=== PATIENT | female | born 1930 | race Caucasian/White ===

== ENCOUNTER 2016-08-20 12:07 | Emergency (ER) | payer OTHER ==
[~2016-08-20] VITALS: Ht 162.6 cm; Wt 63.0 kg
[~2016-08-20 12:07] MED LIST: ASPEC81 PO; BIOT1CAP4 PO; CARB25TA12 PO; CARDIO PLUS PO; CHOLDRO4 PO; CODCAP4 PO; GABA1CAP PO; GARL705C PO; MAGN400T5 PO; NSNN50; SELE5CAP2 PO; SERT50TA PO; VALA1TAB31 PO; [UNRECOGNIZED DRUG - CODE] PO
[2016-08-20 12:10] VITALS: Ht 162.6 cm; Wt 63.0 kg
[2016-08-20 12:52] LABS: BASO % 0.8 %; BASO ABS # 0.04 K/uL (0-0.2); COMPLETE YES; EOS % 1.8 %; HEMATOCRIT 45.4 % (37-47); IG% 0.4 %; LYMPH ABS # 1.01 K/uL (1.2-3.4); MEAN CELL VOLUME 94.6 fL (80-100); MEAN CORPUSCULAR HEMOGLOBIN 31.5 pg (25-34); MEAN CORPUSCULAR HGB CONC 33.3 g/dl (32-36); MEAN PLATELET VOLUME 9.5 fL (7.4-10.4); MONO % 11.7 %; NEUT % 65.3 %; PLATELET COUNT 332 K/uL (130-400); WHITE BLOOD COUNT 5.05 K/uL (4.8-10.8)
[2016-08-20] MEDS ORDERED: POTA-232 PO (13:07)
[2016-08-20 13:10] LABS: ALT/SGPT 10 U/L (12-78); AST/SGOT 20 U/L (15-37); BLOOD UREA NITROGEN 14 mg/dl (7-18); BUN/CREATININE RATIO 19.3 (10-20); CALCIUM 9.1 mg/dl (8.5-10.1); CARBON DIOXIDE 32 mmol/L (21-32); CHLORIDE 106 mmol/L (98-107); CREATININE 0.71 mg/dl (0.60-1.20); GLUCOSE 100 mg/dl (70-99); POTASSIUM 3.9 mmol/L (3.5-5.1); SODIUM 144 mmol/L (136-145)
[2016-08-20 13:21] LABS: ALB/GLOB RATIO 1.1 (0.9-2); ALKALINE PHOSPHATASE 79 U/L (45-117)
--- NOTE | 2016-08-20 14:03 | EMERGENCY ROOM VISIT NOTE ---
History Report prepared by Brook: Nicole Velasquez Under the Supervision of: Dr. Jakob Lomeli M.D. First contact with patient: 12:13 Chief Complaint: OTHER COMPLAINT Stated Complaint: BURNING UP INSIDE ALL NIGHT History of Present Illness The patient is an 86 year old female who presents to the Emergency Room with complaints of intermittent hot flashes for the past 1.5 weeks. She has not seen her PCP for her symptoms. Last night, she felt like she was "burning up inside" . She is becoming flushed and turning red all over her body. The symptoms last for several hours at a time and are relieved by ice. She currently has no symptoms. She denies any fever, urinary symptoms, changes in bowel movement, cough, or new rash. 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 She denies any other changes to her medications recently. She was taken off her thyroid pill 1 year ago. She has been eating and drinking normally. She notes that the color changes on her skin are old. She also has bumps on her arm which have been present for 2 years. She has a history of skin cancer and hernia surgery. She also reports worsening numbness all over her body for the past year. Source of History: patient, family Onset: 1.5 weeks ago Position: other (global) Quality: other (hot flashes) Timing: intermittent Modifying Factors (Relieving): ice Associated Symptoms: + numbness, No fevers, No cough, No urinary symptoms, No rash Note: Pt denies changes in bowel movement. Review of Systems All systems have been listed, reviewed, and are negative other than those previously mentioned. Please see Additional Medical History Sheet. 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), lumbar (3) Dyslipidemia (4) GERD (gastroesophageal reflux disease) (5) Parkinson's disease Surgical Problems: (1) H/O elbow surgery (2) History of cataract surgery (3) S/P hernia repair (4) S/P knee replacement (5) S/P tonsillectomy and adenoidectomy Family History FH: cancer FH: heart disease FH: hypertension FH: lung disease Social History Smoking Status: Never Smoker Alcohol Use: none Drug Use: none Marital Status: Housing Status: lives with family Occupation Status: retired Current/Historical Medications Scheduled Aspirin (Aspirin EC Low Dose), 81 MG PO DAILY Biotin (Biotin), 2,500 MCG PO DAILY Carbidopa/Levodopa (Sinemet 25MG/100MG), 2 TABS PO TID Cholecalciferol (Vitamin D3), 1 TAB PO DAILY Gabapentin (Neurontin), 100 MG PO TID Magnesium Oxide (Mag-Ox), 400 MG PO TID Potassium Chloride (K-Tab), 8 MEQ PO DAILY Selegiline Hcl (Eldepryl), 5 MG PO AM AND LUNCH Sertraline (Zoloft), 50 MG PO HS Allergies Uncoded Allergies: NARCOTICS (Adverse Reaction, Unknown, DIZZY, , 06/25/15) Physical Exam Vital Signs Date Time Temp Pulse Resp B/P (MAP) Pulse Ox O2 Delivery O2 Flow Rate FiO2 08/20/16 15:31 36.7 68 16 154/79 98 08/20/16 14:53 68 16 154/79 98 08/20/16 13:57 68 16 128/80 97 Room Air 08/20/16 12:10 36.7 77 16 117/77 97 Room Air Physical Exam GENERAL: Patient awake, alert, oriented x 3. Patient follows commands. Patient does not appear toxic. Patient is well-nourished. SKIN: Ulcer on the left anterior tib fib. Slightly raised nonblanching rash primarily on the arms. HEENT: Normal head, pupils equal, reactive to light and accommodation. Ears normal. Oral cavity and posterior pharynx appear normal. Mucous membranes slightly dry. Neck: Without adenopathy, no neck vein distention. LUNGS: Clear to auscultation. No wheezes, no rales, no rhonchi. HEART: No murmurs. No gallops. No rubs ABDOMEN: No masses, no rebound, no hepatomegaly or splenomegaly. Well healed mid abdominal scar. EXTREMITIES: No signs of trauma. No pedal or pretibial edema. No calf or thigh tenderness. Stasis changes to both lower legs. NEUROLOGIC: Cranial nerves II-XII within normal limits. No gross motor sensory function deficits. Medical Decision & Procedures Laboratory Results 08/20/16 12:40 Red Blood Count 4.80, Mean Corpuscular Volume 94.6, Mean Corpuscular Hemoglobin 31.5, Mean Corpuscular Hemoglobin Concent 33.3, Mean Platelet Volume 9.5, Neutrophils (%) (Auto) 65.3, Lymphocytes (%) (Auto) 20.0, Monocytes (%) (Auto) 11.7, Eosinophils (%) (Auto) 1.8, Basophils (%) (Auto) 0.8, Neutrophils # (Auto ) 3.30, Lymphocytes # (Auto) 1.01, Monocytes # (Auto) 0.59, Eosinophils # (Auto ) 0.09, Basophils # (Auto) 0.04 08/20/16 12:40 Test 08/20/16 12:40 White Blood Count 5.05 K/uL (4.8-10.8) Red Blood Count 4.80 M/uL (4.2-5.4) Hemoglobin 15.1 g/dL (12.0-16.0) Hematocrit 45.4 % (37-47) Mean Corpuscular Volume 94.6 fL (80-100) Mean Corpuscular Hemoglobin 31.5 pg (25-34) Mean Corpuscular Hemoglobin Concent 33.3 g/dl (32-36) Platelet Count 332 K/uL (130-400) Mean Platelet Volume 9.5 fL (7.4-10.4) Neutrophils (%) (Auto) 65.3 % Lymphocytes (%) (Auto) 20.0 % Monocytes (%) (Auto) 11.7 % Eosinophils (%) (Auto) 1.8 % Basophils (%) (Auto) 0.8 % Neutrophils # (Auto) 3.30 K/uL (1.4-6.5) Lymphocytes # (Auto) 1.01 K/uL (1.2-3.4) Monocytes # (Auto) 0.59 K/uL (0.11-0.59) Eosinophils # (Auto) 0.09 K/uL (0-0.5) Basophils # (Auto) 0.04 K/uL (0-0.2) RDW Standard Deviation 47.4 fL (36.4-46.3) RDW Coefficient of Variation 13.7 % (11.5-14.5) Immature Granulocyte % (Auto) 0.4 % Immature Granulocyte # (Auto) 0.02 K/uL (0.00-0.02) Anion Gap 6.0 mmol/L (3-11) Est Creatinine Clear Calc Drug Dose 47.3 ml/min Estimated GFR () 88.1 Estimated GFR (Non- 76.0 BUN/Creatinine Ratio 19.3 (10-20) Calcium Level 9.1 mg/dl (8.5-10.1) Total Bilirubin 0.4 mg/dl (0.2-1) Aspartate Amino Transf (AST/SGOT) 20 U/L (15-37) Alanine Aminotransferase (ALT/SGPT) 10 U/L (12-78) Alkaline Phosphatase 79 U/L (45-117) Troponin I < 0.015 ng/ml (0-0.045) Total Protein 6.9 gm/dl (6.4-8.2) Albumin 3.6 gm/dl (3.4-5.0) Globulin 3.3 gm/dl (2.5-4.0) Albumin/Globulin Ratio 1.1 (0.9-2) Thyroid Stimulating Hormone (TSH) 4.120 uIu/ml (0.300-4.500) Laboratory results as stated above per my review. ECG Indication: other (hot flushing) Rate (beats per minute): 74 Rhythm: normal sinus Findings: nonspecific-ST abn, no ectopy Comparison ECG Date: 25-Jun-2015 Change: no significant change ED Course 1214: Past medical records reviewed. The patient was evaluated in room C6. A complete history and physical examination was performed. 1446: Upon reevaluation, the patient appeared to have improvement of her symptoms. I discussed today's findings with her and her family. They verbalized agreement of the treatment plan. She was discharged home. Medical Decision Nurses notes reviewed. Medical history sheet reviewed. Differential diagnosis includes but is not limited to: medication reaction, endocrine abnormality, metabolic disorder. Medication Reconciliation: I attest that I have personally reviewed the patient' s current medication list. Blood pressure Screening: Patient was found to have normal blood pressure on screening and does not require follow up. Multiple labs, EKG and imaging were obtained. Please see above. Patient's thyroid function appears to be within normal range. Electrolytes were also checked. The patient is not anemic. I had a discussion with the hospital pharmacist who investigated the contents of the [id number] vitamins. 2 of them have a fair amount of niacin in them. Most likely this is the cause of the patient's flushing. The patient was strongly encouraged to stop all of the [id number] medications. Impression Primary Impression: Flushing reaction Scribe Attestation The scribe's documentation has been prepared under my direction and personally reviewed by me in its entirety. I confirm that the note above accurately reflects all work, treatment, procedures, and medical decision making performed by me. Departure Information Dispostion Home / Self-Care Referrals Paulo Hernandez D.OJose (PCP) Patient Instructions My [facility] Additional Instructions Stop all of the [id number] vitamins. Continue all of your prescribed medications as directed. Follow-up with Dr. Hernandez within the next 2 weeks.
[2016-08-20 15:31] VITALS: BP 154/79; PULSE 68; TEMP 36.7; O2SAT 98
[2017-02-17] MEDS ORDERED: CLC/300 PO (14:26)
== END 2016-08-20 15:25 | disposition home or self-care (01) ==
LOC: C.EDB 12:08 → C.EDC 15:25
DX: R23.2 Flushing (principal); R20.0 Anesthesia of skin; L97.829 Non-pressure chronic ulcer of other part of left lower leg with unspecified severity; R21 Rash and other nonspecific skin eruption; I87.2 Venous insufficiency (chronic) (peripheral); M47.816 Spondylosis without myelopathy or radiculopathy, lumbar region; E78.5 Hyperlipidemia, unspecified; K21.9 Gastro-esophageal reflux disease without esophagitis; G20 Parkinson's disease; Z85.828 Personal history of other malignant neoplasm of skin; Z86.011 Personal history of benign neoplasm of the brain; Z96.659 Presence of unspecified artificial knee joint; Z79.82 Long term (current) use of aspirin; Z82.49 Family history of ischemic heart disease and other diseases of the circulatory system

== ENCOUNTER 2017-02-23 12:26 | Inpatient (IN) | payer OTHER ==
[~2017-02-23] VITALS: Ht 162.6 cm; Wt 64.8 kg
[~2017-02-23 12:26] MED LIST changes: -CARDIO PLUS PO; +CLC/300 PO; -CODCAP4 PO; -GARL705C PO; -NSNN50; +POTA-232 PO; -VALA1TAB31 PO; -[UNRECOGNIZED DRUG - CODE] PO
[2017-02-23] MEDS ORDERED: SODIUM CHLORIDE 0.9% 1000ML 1,000 ML IV SCH (13:15)
--- NOTE | 2017-02-23 13:41 | DIAGNOSTIC IMAGING REPORT ---
CHEST ONE VIEW PORTABLE CLINICAL HISTORY: Stroke mental status change COMPARISON STUDY: 06/25/2015 FINDINGS: Moderate cardiomegaly. Lungs are clear. Minimal chronic pleural and parenchymal change left base. IMPRESSION: Stable moderate cardiomegaly. No acute process. The above report was generated using voice recognition software. It may contain grammatical, syntax or spelling errors. Electronically signed by: Kwasi Keane M.D. 02/23/2017 1:40 PM Dictated Date/Time: 02/23/2017 1:39 PM
[2017-02-23] MEDS ORDERED: BIOT1TAB5 PO (14:26)
[2017-02-23 14:27] LABS: BASO % 0.4 %; BASO ABS # 0.03 K/uL (0-0.2); EOS % 1.5 %; EOS ABS # 0.12 K/uL (0-0.5); HEMATOCRIT 41.3 % (37-47); HEMOGLOBIN 13.4 g/dL (12.0-16.0); IG# 0.03 K/uL (0.00-0.02); LYMPH % 16.8 %; LYMPH ABS # 1.37 K/uL (1.2-3.4); MEAN CELL VOLUME 95.2 fL (80-100); MEAN CORPUSCULAR HEMOGLOBIN 30.9 pg (25-34); MEAN CORPUSCULAR HGB CONC 32.4 g/dl (32-36); MEAN PLATELET VOLUME 9.4 fL (7.4-10.4); MONO % 8.8 %; MONO ABS # 0.72 K/uL (0.11-0.59); NEUT % 72.1 %; NEUT ABS # 5.89 K/uL (1.4-6.5); PLATELET COUNT 391 K/uL (130-400); RED CELL DISTRIBUTION WIDTH CV 14.1 % (11.5-14.5); RED CELL DISTRIBUTION WIDTH SD 49.3 fL (36.4-46.3); WHITE BLOOD COUNT 8.16 K/uL (4.8-10.8)
--- NOTE | 2017-02-23 14:36 | DIAGNOSTIC IMAGING REPORT ---
CT HEAD WITHOUT CONTRAST (CT) CLINICAL HISTORY: Stroke like symptoms. Confusion. Multifocal numbness. COMPARISON STUDY: 02-01 TECHNIQUE: Axial CT of the brain is performed from the vertex to the skull base. IV contrast was not administered for this examination. A dose lowering technique was utilized adhering to the principles of ALARA. CT DOSE: 638.56 mGycm FINDINGS: There is a left posterior fossa extra-axial mass measuring 22 mm in greatest dimension. This abuts the petrous bone. This likely represents a meningioma. There is no evidence of midline shift. There is no evidence of acute hemorrhage. There is no CT evidence of acute cortical infarction. There are patchy white matter hypodensities likely on a small vessel basis. There is no evidence of pathologic ventricular dilatation. There is no evidence of acute sinusitis IMPRESSION: 1. Persistent left posterior fossa extra-axial mass currently measuring 22 mm. This likely represents a meningioma 2. No acute intracranial findings Electronically signed by: Calvin Osorio M.D. 02/23/2017 2:34 PM Dictated Date/Time: 02/23/2017 2:32 PM
[2017-02-23 14:37] LABS: INR 0.9 (0.9-1.1); PTT PATIENT 27.6 SECONDS (21.0-31.0)
[2017-02-23 14:48] LABS: BLOOD UREA NITROGEN 18 mg/dl (7-18); CALCIUM 9.1 mg/dl (8.5-10.1); CARBON DIOXIDE 26 mmol/L (21-32); CREATININE 0.84 mg/dl (0.60-1.20); GLUCOSE 82 mg/dl (70-99); SODIUM 138 mmol/L (136-145)
[2017-02-23] MEDS ORDERED: CLINDAMYCIN HCL 150 MG CAP PO ONE (15:15)
[2017-02-23] MEDS ORDERED: ONDANSETRON INJ 2 MG/ML 2 ML VIAL IV PRN (15:15)
[2017-02-23] MEDS ORDERED: NITROGLYCERIN 0.4 MG SL PER TAB CHARGE SL PRN (15:15)
[2017-02-23] MEDS ORDERED: CARBIDOPA/LEVODOPA 25/100MG TAB PO ONE (15:15)
[2017-02-23] MEDS ORDERED: ALUMINUM/MAGNESIUM/SIMETH (MAALOX MAX) 30 ML UDC PO PRN (15:15)
[2017-02-23] MEDS ORDERED: PHARMACIST DISCHARGE MED REC CONSULT PRN (15:15)
[2017-02-23] MEDS ORDERED: SELEGILINE HCL 5 MG CAP PO ONE (15:15)
[2017-02-23] MEDS ORDERED: POLYETHYLENE (MIRALAX) 17 GM PACK PO PRN (15:15)
[2017-02-23] MEDS ORDERED: GABAPENTIN 100 MG CAP PO ONE (15:15)
[2017-02-23] MEDS ORDERED: MAGNESIUM HYDROXIDE SUSP 30 ML UDC PO PRN (15:15)
--- NOTE | 2017-02-23 15:19 | History and Physical ---
History & Physical Date & Time of Service: Feb 23, 2017 at 15:18 Chief Complaint: Numbness All Over Primary Care Physician: Paulo Hernandez D.O. History of Present Illness Source: patient this is a 86 yo F with past medical hx of Parkinson's disease , GERD , lumber DJD , hx of Psoas hematoma , chronic urinary incontinence, meningioma presented to ED with complain of rt sided weakness and numbness her symptom started approx 1-2 am at night , pt is a poor historian , her daughter and care givers are present at bedside able to provide informations pt had a regular day yesterday , finished her dinner , went to bed with no discomfort, pt has clinical care manager staying overnight with she woke up around 1 am , calling for her caregiver -reporting her rt arm and leg feels numb and she can not move them per caregiver pt was still able to move her arm and leg but was very anxious no facial droop, no dysarthria this morning she had breakfast -with no problem no drooling or difficulty in swallowing noted . moving her rt extremity without any difficulty pt was seen at [facility] office today , sent to [facility] by her family physician for stroke work up in the ER , pt remained asymptomatic , complains of numbness of rt hand and arm , no headache -care givers reports pt been complaining of numbness of her rt side on and off for past few weeks has blurred vision in both eyes off and on -per caregivers it has been chronic has traumatic hematoma on left upper leg form recent injury in bathtub faucet approx 10 days back no fever or chills no complain of SOB , no chest heaviness no dizzy spell Past Medical/Surgical History Medical Problems: (1) CPA meningioma Status: Chronic (2) DJD (degenerative joint disease), lumbar Status: Chronic (3) Dyslipidemia Status: Chronic (4) GERD (gastroesophageal reflux disease) Status: Chronic (5) Parkinson's disease Status: Chronic Surgical Problems: (1) H/O elbow surgery Status: Chronic (2) History of cataract surgery Status: Chronic (3) S/P hernia repair Status: Chronic (4) S/P knee replacement Status: Chronic (5) S/P tonsillectomy and adenoidectomy Status: Chronic Family History FH: cancer FH: heart disease FH: hypertension FH: lung disease Social History Smoking Status: Never Smoker Drug Use: none Marital Status: Housing status: other Occupational Status: retired Allergies Uncoded Allergies: NARCOTICS (Adverse Reaction, Unknown, DIZZY, , 06/25/15) Home Medications Scheduled Aspirin (Aspirin EC Low Dose), 81 MG PO DAILY Biotin (Biotin), 1 TAB PO QAM Carbidopa/Levodopa (Sinemet 25MG/100MG), 2 TABS PO TID Cholecalciferol (Vitamin D3), 1 TAB PO DAILY Clindamycin HCl (Clindamycin HCl), 1 CAP PO TID Gabapentin (Neurontin), 100 MG PO TID Magnesium Oxide (Mag-Ox), 400 MG PO TID Potassium Chloride (K-Tab), 8 MEQ PO DAILY Selegiline Hcl (Eldepryl), 5 MG PO AM AND LUNCH Sertraline (Zoloft), 50 MG PO HS Review of Systems Constitutional: + weakness, + fatigue Eyes: + diplopia, + problem reported (blurred vision off and on in both years ) Respiratory: No cough, No sputum, No wheezing, No shortness of breath, No dyspnea on exertion, No dyspnea at rest, No hemoptysis, No problem reported Cardiovascular: No chest pain, No orthopnea, No PND, No edema, No claudication , No palpitations, No problem reported Abdomen: No pain, No nausea, No vomiting, No diarrhea, No constipation, No GI bleeding, No problem reported Musculoskeletal: + problem reported (left upper leg hematoma ) Genitourinary - Female: + urinary incontinence (chronic ) Neurologic: + weakness, + numbness/tingling (on rt side ), + balance problems Psychiatric: + anxiety Endocrine: + fatigue Physical Exam Vital Signs Date Time Temp Pulse Resp B/P (MAP) Pulse Ox O2 Delivery O2 Flow Rate FiO2 02/23/17 15:11 77 18 168/92 99 Room Air 02/23/17 13:51 100 Room Air 02/23/17 13:50 36.3 71 18 164/79 96 Room Air 02/23/17 13:02 96 Room Air 02/23/17 12:58 69 02/23/17 12:42 36.3 67 18 153/82 97 Room Air General Appearance: no apparent distress Head: normocephalic, atraumatic Eyes: PERRL, EOMI, sclerae normal, + pertinent finding (PT REPORTS OF BLURRED VISION ON LATERAL GAZE ON BOTH EYES ) Neck: thyroid normal, no carotid bruits, trachea midline Respiratory/Chest: chest non-tender, lungs clear, normal breath sounds, no respiratory distress, no accessory muscle use Cardiovascular: regular rate, rhythm Abdomen/GI: normal bowel sounds, non tender, soft Extremities/Musculoskelatal: + pertinent finding (SWELLING /HEMATOMA ON LEFT UPPER LEG + WARMTH /TENDERNESS + 2 PEDAL EDEMA ) Neurologic/Psych: alert, + motor weakness (4/5 ON RT UPPER EXT , 5/5 ON RT LOWER EXT ), + sensory deficit (REPORTS OF NUMB SENSATION ON RT COMPARED TO LEFT ON TOUCH SENSATION ) Skin: + pertinent finding (CHRONIC SKIN CHANGES IN BOTH LOWER EXTREMITIES , NO OPEN WOUND NOTED ) Diagnostics Laboratory Results Results Past 24 Hours Test 02/23/17 13:58 02/23/17 14:01 Range/Units Bedside Prothrombin Time INR 1.0 0.9-1.1 White Blood Count 8.16 4.8-10.8 K/uL Red Blood Count 4.34 4.2-5.4 M/uL Hemoglobin 13.4 12.0-16.0 g/dL Hematocrit 41.3 37-47 % Mean Corpuscular Volume 95.2 80-100 fL Mean Corpuscular Hemoglobin 30.9 25-34 pg Mean Corpuscular Hemoglobin Concent 32.4 32-36 g/dl Platelet Count 391 130-400 K/uL Mean Platelet Volume 9.4 7.4-10.4 fL Neutrophils (%) (Auto) 72.1 % Lymphocytes (%) (Auto) 16.8 % Monocytes (%) (Auto) 8.8 % Eosinophils (%) (Auto) 1.5 % Basophils (%) (Auto) 0.4 % Neutrophils # (Auto) 5.89 1.4-6.5 K/uL Lymphocytes # (Auto) 1.37 1.2-3.4 K/uL Monocytes # (Auto) 0.72 0.11-0.59 K/uL Eosinophils # (Auto) 0.12 0-0.5 K/uL Basophils # (Auto) 0.03 0-0.2 K/uL RDW Standard Deviation 49.3 36.4-46.3 fL RDW Coefficient of Variation 14.1 11.5-14.5 % Immature Granulocyte % (Auto) 0.4 % Immature Granulocyte # (Auto) 0.03 0.00-0.02 K/uL Prothrombin Time 9.2 9.0-12.0 SECONDS Prothromb Time International Ratio 0.9 0.9-1.1 Activated Partial Thromboplast Time 27.6 21.0-31.0 SECONDS Partial Thromboplastin Ratio 1.1 Sodium Level 138 136-145 mmol/L Potassium Level 4.0 3.5-5.1 mmol/L Chloride Level 106 98-107 mmol/L Carbon Dioxide Level 26 21-32 mmol/L Anion Gap 6.0 3-11 mmol/L Blood Urea Nitrogen 18 7-18 mg/dl Creatinine 0.84 0.60-1.20 mg/dl Est Creatinine Clear Calc Drug Dose 40.0 ml/min Estimated GFR () 71.9 Estimated GFR (Non- 62.1 BUN/Creatinine Ratio 20.8 10-20 Random Glucose 82 70-99 mg/dl Calcium Level 9.1 8.5-10.1 mg/dl Magnesium Level 2.5 1.8-2.4 mg/dl Troponin I < 0.015 0-0.045 ng/ml Diagnostic Radiology CT HEAD WITHOUT CONTRAST (CT) CLINICAL HISTORY: Stroke like symptoms. Confusion. Multifocal numbness. COMPARISON STUDY: 02-01 TECHNIQUE: Axial CT of the brain is performed from the vertex to the skull base. IV contrast was not administered for this examination. A dose lowering technique was utilized adhering to the principles of ALARA. CT DOSE: 638.56 mGycm FINDINGS: There is a left posterior fossa extra-axial mass measuring 22 mm in greatest dimension. This abuts the petrous bone. This likely represents a meningioma. There is no evidence of midline shift. There is no evidence of acute hemorrhage. There is no CT evidence of acute cortical infarction. There are patchy white matter hypodensities likely on a small vessel basis. There is no evidence of pathologic ventricular dilatation. There is no evidence of acute sinusitis IMPRESSION: 1. Persistent left posterior fossa extra-axial mass currently measuring 22 mm. This likely represents a meningioma 2. No acute intracranial findings EKG Vent. rate 69 BPM NM interval 154 ms QRS duration 88 ms QT/QTc 424/454 ms P-R-T axes 154 182 72 Unusual P axis, possible ectopic atrial rhythm Inferior infarct , age undetermined Anterolateral infarct , age undetermined Abnormal ECG When compared with ECG of 20-AUG-2016 12:32, Significant changes have occurred Impression Assessment and Plan RT SIDED NUMBNESS R/P TIA VS ACUTE CVA presents with numbness and weakness of rt side passed time for tPA symptoms has improved since morning , able to hold fork for breakfast , mild diminish in strength subjective feeling of numbness /decreased sensation from left CT head w/out contrast : No acute intracranial findings monitor in tele r/o arrhythmia ordered for MRI combo of brain , carotid Doppler, resting ECHO neurology consulted pt was taken off Aspirin 81 mg daily -due to leg hematoma case d/w Dr Phipps , ok to hold off aspirin for now recommends to do neuroimaging for stroke work up for now LEFT CEREBELLO PONTINE ANGLE MENINGIOMA chronic has been followed with Neurosurgery at [facility] -non surgical gets periodic MRI of brain to assess to progress /growth of meningioma recent out pt brain MRI done at [facility] on 06/22/16 left post fossa meningioma [id number] mm CT head with out contrast today shows: Persistent left posterior fossa extra-axial mass currently measuring 22 mm. This likely represents a meningioma doubt pt's symptom of numbness is due to mild increase in growth of meningioma CT head comments no mid line shift pt denies of headache or dizzy spell MRI of brain with and with out contrast ordered LEFT LEG HEMATOMA /CELLULITIS fell on bathtub striking the faucet on left leg approx 10 days back was in [place] , treated at local hospital , had lower ext USG -shows hematoma on left upper leg pt was asked to stop taking Aspirin 81 mg daily pt has hospital follow up with Dr Hernandez on 02/20/17 pt had increased pain and swelling /warmth on that area -started on Clindamycin for possible cellulitis no report of fever or chills left lower leg non wt bearing , asked to keep leg elevated to improve edema , swelling pt is continued with Clindamycin to complete course PARKINSON'S DISEASE cont Senemt and /selegiline DVT PROPHYLAXIS : moderate to high risk -minimum ambulatory Sub q heparin not ordered due to hematoma SCD and teds contraindicated due to painful hematoma of leg and cellulitis DNR/DNI -D/w pt DISPOSITION lives at home has 09/10 care givers PT/OT not ordered at admission -as pt and family /caregivers does not want it / Non wt bearing on left side /uses walker depending on pt's progress , PT/OT can be ordered by provider if needed social service consulted for discharge planning Medicine follow up with Dr Maya Level of Care Telemetry Resuscitation Status DO NOT RESUSCITATE VTE Prophylaxis VTE Risk Assessment Done? Y/N: Yes Risk Level: Moderate Given or contraindicated: Treatment not tolerated, Contraindicated (LEG HEMATOMA ) Additional Copies To Paulo Hernandez D.O.
[2017-02-23 16:30] VITALS: Ht 162.6 cm; Wt 64.8 kg
[2017-02-23] MEDS: LACTOBACILLUS ACIDOPHILUS (FLORANEX) TAB PO SCH (16:45)
[2017-02-23 16:54] VITALS: BP 162/85; PULSE 76; TEMP 37.3; O2SAT 95
--- NOTE | 2017-02-23 17:32 | EMERGENCY ROOM VISIT NOTE ---
History Report prepared by Brook: Michele Garcia Under the Supervision of: Dr. Dylan Tinoco M.D. First contact with patient: 13:02 Chief Complaint: OTHER COMPLAINT Stated Complaint: NUMBNESS ALL OVER History of Present Illness The patient is an 86 year old female who presents to the Emergency Room with complaints of right-sided numbness that began early this morning 11 hours ago. She has a past medical history of a left-sided meningioma and Parkinson's disease. She has been experiencing intermittent episodes of numbness for many months. Since this morning, she noticed that she had been feeling very numb to her right side. She also began having mild slurred speech and trouble finding her words. These symptoms persisted throughout the day. She recently experienced trauma to her left leg 2 weeks ago and has hematomas to the area. She received an US of her leg that was negative for DVT. Her left leg has been numb as well secondary to her injury as well. Her numbness has not changed in her left leg. The hematoma has been improving. She went to her PCP today and told them about her neurologic symptoms. They sent her here to the ER for further evaluation. She denies any fevers, chest pain, shortness of breath, abdominal pain, or weakness. She was recently taken off Aspirin two weeks ago secondary to her leg injury. Source of History: patient Onset: 11 hours ago Position: other (Right-side) Symptom Intensity: moderate Quality: numbness Timing: constant Associated Symptoms: No fevers, No chest pain, No SOB, No abdominal pain, No weakness Note: She is having left leg pain and numbness secondary to her hematoma. She states that she is having trouble finding her words and having some slurred speech. Review of Systems See HPI for pertinent positives & negatives. A total of 10 systems reviewed and were otherwise negative. 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), lumbar (3) Dyslipidemia (4) GERD (gastroesophageal reflux disease) (5) Parkinson's disease (6) Right sided weakness Surgical Problems: (1) H/O elbow surgery (2) History of cataract surgery (3) S/P hernia repair (4) S/P knee replacement (5) S/P tonsillectomy and adenoidectomy Family History FH: cancer FH: heart disease FH: hypertension FH: lung disease Social History Smoking Status: Never Smoker Alcohol Use: none Drug Use: none Marital Status: Housing Status: lives with family Occupation Status: retired Current/Historical Medications Scheduled Aspirin (Aspirin EC Low Dose), 81 MG PO DAILY Biotin (Biotin), 1 TAB PO QAM Carbidopa/Levodopa (Sinemet 25MG/100MG), 2 TABS PO TID Cholecalciferol (Vitamin D3), 1 TAB PO DAILY Clindamycin HCl (Clindamycin HCl), 1 CAP PO TID Gabapentin (Neurontin), 100 MG PO TID Magnesium Oxide (Mag-Ox), 400 MG PO TID Potassium Chloride (K-Tab), 8 MEQ PO DAILY Selegiline Hcl (Eldepryl), 5 MG PO AM AND LUNCH Sertraline (Zoloft), 50 MG PO HS Allergies Uncoded Allergies: NARCOTICS (Adverse Reaction, Unknown, DIZZY, , 06/25/15) Physical Exam Vital Signs Date Time Temp Pulse Resp B/P (MAP) Pulse Ox O2 Delivery O2 Flow Rate FiO2 02/23/17 15:11 77 18 168/92 99 Room Air 02/23/17 13:51 100 Room Air 02/23/17 13:50 36.3 71 18 164/79 96 Room Air 02/23/17 13:02 96 Room Air 02/23/17 12:58 69 02/23/17 12:42 36.3 67 18 153/82 97 Room Air Physical Exam Constitutional: Vital signs reviewed. Eyes: Pupils are equal round reactive to light. Conjunctiva are noninjected. ENT: Pharynx is clear without erythema or exudate. Mucous membranes are moist. Neck supple without meningeal signs. Respiratory: Clear to auscultation bilaterally. Breath sounds are equal bilaterally. Cardiovascular: Regular rate and rhythm. No rubs or gallops. GI: Soft, nondistended and nontender. Bowel sounds are present. Musculoskeletal: There is a hematoma to the left medial superior calf without significant warmth or erythema. DP pulse intact with capillary refill of less than 2 seconds. No signs of compartment syndrome. Integumentary: No cyanosis. Neurological: The patient is awake and alert. Cranial nerves II-XII are intact , except for dysesthesia to the right side of the face. Motor is 5 out of 5 all extremities. Sensation is intact to light touch all extremities, except dysesthesia to the right arm and leg as well as the left leg. Normal speech. No pronator drift. Psychiatric: Normal affect. Medical Decision & Procedures ER Provider Diagnostic Interpretation: Radiology results as stated below per my review and the radiologist's interpretation: CT HEAD WITHOUT CONTRAST (CT) CLINICAL HISTORY: Stroke like symptoms. Confusion. Multifocal numbness. COMPARISON STUDY: 02-01 TECHNIQUE: Axial CT of the brain is performed from the vertex to the skull base. IV contrast was not administered for this examination. A dose lowering technique was utilized adhering to the principles of ALARA. CT DOSE: 638.56 mGycm FINDINGS: There is a left posterior fossa extra-axial mass measuring 22 mm in greatest dimension. This abuts the petrous bone. This likely represents a meningioma. There is no evidence of midline shift. There is no evidence of acute hemorrhage. There is no CT evidence of acute cortical infarction. There are patchy white matter hypodensities likely on a small vessel basis. There is no evidence of pathologic ventricular dilatation. There is no evidence of acute sinusitis IMPRESSION: 1. Persistent left posterior fossa extra-axial mass currently measuring 22 mm. This likely represents a meningioma 2. No acute intracranial findings Electronically signed by: Calvin Osorio M.D. 02/23/2017 2:34 PM Dictated Date/Time: 02/23/2017 2:32 PM CHEST ONE VIEW PORTABLE CLINICAL HISTORY: Stroke mental status change COMPARISON STUDY: 06/25/2015 FINDINGS: Moderate cardiomegaly. Lungs are clear. Minimal chronic pleural and parenchymal change left base. IMPRESSION: Stable moderate cardiomegaly. No acute process. The above report was generated using voice recognition software. It may contain grammatical, syntax or spelling errors. Electronically signed by: Kwasi Keane M.D. 02/23/2017 1:40 PM Dictated Date/Time: 02/23/2017 1:39 PM Laboratory Results 02/23/17 14:01 Red Blood Count 4.34, Mean Corpuscular Volume 95.2, Mean Corpuscular Hemoglobin 30.9, Mean Corpuscular Hemoglobin Concent 32.4, Mean Platelet Volume 9.4, Neutrophils (%) (Auto) 72.1, Lymphocytes (%) (Auto) 16.8, Monocytes (%) (Auto) 8.8, Eosinophils (%) (Auto) 1.5, Basophils (%) (Auto) 0.4, Neutrophils # (Auto) 5.89, Lymphocytes # (Auto) 1.37, Monocytes # (Auto) 0.72, Eosinophils # (Auto) 0.12, Basophils # (Auto) 0.03 02/23/17 14:01 Test 02/23/17 13:58 02/23/17 14:01 Bedside Prothrombin Time INR 1.0 (0.9-1.1) White Blood Count 8.16 K/uL (4.8-10.8) Red Blood Count 4.34 M/uL (4.2-5.4) Hemoglobin 13.4 g/dL (12.0-16.0) Hematocrit 41.3 % (37-47) Mean Corpuscular Volume 95.2 fL (80-100) Mean Corpuscular Hemoglobin 30.9 pg (25-34) Mean Corpuscular Hemoglobin Concent 32.4 g/dl (32-36) Platelet Count 391 K/uL (130-400) Mean Platelet Volume 9.4 fL (7.4-10.4) Neutrophils (%) (Auto) 72.1 % Lymphocytes (%) (Auto) 16.8 % Monocytes (%) (Auto) 8.8 % Eosinophils (%) (Auto) 1.5 % Basophils (%) (Auto) 0.4 % Neutrophils # (Auto) 5.89 K/uL (1.4-6.5) Lymphocytes # (Auto) 1.37 K/uL (1.2-3.4) Monocytes # (Auto) 0.72 K/uL (0.11-0.59) Eosinophils # (Auto) 0.12 K/uL (0-0.5) Basophils # (Auto) 0.03 K/uL (0-0.2) RDW Standard Deviation 49.3 fL (36.4-46.3) RDW Coefficient of Variation 14.1 % (11.5-14.5) Immature Granulocyte % (Auto) 0.4 % Immature Granulocyte # (Auto) 0.03 K/uL (0.00-0.02) Prothrombin Time 9.2 SECONDS (9.0-12.0) Prothromb Time International Ratio 0.9 (0.9-1.1) Activated Partial Thromboplast Time 27.6 SECONDS (21.0-31.0) Partial Thromboplastin Ratio 1.1 Anion Gap 6.0 mmol/L (3-11) Est Creatinine Clear Calc Drug Dose 40.0 ml/min Estimated GFR () 71.9 Estimated GFR (Non- 62.1 BUN/Creatinine Ratio 20.8 (10-20) Calcium Level 9.1 mg/dl (8.5-10.1) Magnesium Level 2.5 mg/dl (1.8-2.4) Troponin I < 0.015 ng/ml (0-0.045) Laboratory results as reviewed by me. Medications Administered ECG Indication: other (Numbness) Rate (beats per minute): 69 Rhythm: sinus rhythm Findings: no ectopy, other (No acute STS elevations) ED Course 1302: The patient was evaluated in room B7. A complete history and physical exam was performed. 1315: Ordered Sodium Chloride 1000 ml @ 50 mls/hr IV 1500: I spoke with Dr. Calderon of the [facility]. We discussed the patient and her results. The patient will be further evaluated by her. 1503: Upon reevaluation, the patient is still having right sided numbness. I explained with her the plan of care. She is agreeable. 1515: Ordered Cleocin Cap 300 mg PO, Neurontin Cap 100 mg PO, Selegiline HCl 5 mg PO, Carbidopa/Levodopa 1 tab PO Medical Decision This is an 86-year-old female presents with numbness to the right side of her body and leg pain. Differential diagnoses considered include intracranial mass , intracranial hemorrhage, CVA, compartment syndrome, hematoma, DVT. I did perform a limited focused review of portions of the patient's old chart on the electronic medical record. The patient had an MRI in June 2015 which was negative. She then had a CT scan in January of 2016 which showed a 18 mm left meningioma. I did evaluate the patient as noted above. Patient is presenting with numbness to the right side of her body from her face down to her leg. She states it started at 2 AM this morning. She is outside of the window for TPA. She does have a history of a meningioma on the left side. She does state that she has had intermittent numbness for months but this is very different from her other episodes which were transient. She also has a hematoma to her left leg. She has already had an ultrasound which showed no DVT. She has no evidence of compartment syndrome at this time. She is on clindamycin for superimposed infection. IV access was established. The patient was placed on a continuous monitoring analyst. I did order and personally review the patient's 12-lead EKG and chest x-ray as described above. I did order and review the patient's blood work as noted in the electronic medical record. I did order a CT of the head. I did review the images myself as well as the radiology report as described above. She does have a meningioma. It is only about 4 mm bigger than it was over a year ago. There is no sign of bleed or infarct. I did reassess the patient. She has continued symptoms. I did discuss the test results with the patient and her family. I did recommend hospitalization for further evaluation of her symptoms and MRI. I did discuss case with the hospitalist and porter sample case. Medication Reconcilliation Current Medication List: was personally reviewed by me Blood Pressure Screening Patient's blood pressure: Elevated blood pressure Blood pressure disposition: Referred to PCP Consults Time Called: 1455 Consulting Physician: Dr. Kvng [facility] Returned Call: 1500 We discussed the patient and her results. The patient will be further evaluated by her. Impression Primary Impression: Numbness on right side Additional Impressions: Hematoma of left lower extremity Meningioma Scribe Attestation The scribe's documentation has been prepared under my direct and personally reviewed by me in its entirety. I confirm that the note above accurately reflects all work, treatment, procedures, and medical decision making performed by me. Departure Information Dispostion Being Evaluated By Hospitalist Referrals Paulo Hernandez D.OJose (PCP) Patient Instructions My [facility] Problem Qualifiers Additional Impressions: Hematoma of left lower extremity Encounter type: initial encounter Qualified Codes: S80.12XA - Contusion of left lower leg, initial encounter
[2017-02-23 19:15] VITALS: BP 133/76; PULSE 74; TEMP 36.8; O2SAT 97
[2017-02-23] MEDS ORDERED: CLINDAMYCIN HCL 150 MG CAP PO SCH (21:00)
[2017-02-23] MEDS: MAGNESIUM OXIDE 400 MG TAB PO SCH (21:01)
[2017-02-23] MEDS: GABAPENTIN 100 MG CAP PO SCH (21:01)
[2017-02-23] MEDS: SERTRALINE HCL 50 MG TAB PO SCH (21:01)
[2017-02-23] MEDS: ACETAMINOPHEN 325 MG TAB PO PRN (22:04)
[2017-02-23 23:38] VITALS: BP 176/85; PULSE 73; TEMP 36.9; O2SAT 95
[2017-02-23] MEDS: CARBIDOPA/LEVODOPA 25/100MG TAB PO SCH (23:59)
[2017-02-23] MEDS: CLINDAMYCIN HCL 150 MG CAP PO SCH (23:59)
[2017-02-24] VITALS (9 sets, daily range): BP systolic 128–177; BP diastolic 73–96; PULSE 66–78; TEMP 36.5–37; O2SAT 92–98
[2017-02-24] MEDS: ACETAMINOPHEN 325 MG TAB PO PRN ×2 (03:48→08:22)
--- NOTE | 2017-02-24 06:52 | DIAGNOSTIC IMAGING REPORT ---
CAROTID ARTERY ULTRASOUND CLINICAL HISTORY: Stroke-like symptoms. Confusion. Evaluate for carotid stenosis. COMPARISON STUDY: None. TECHNIQUE: Real-time, grayscale, and color Doppler sonography of the carotid and vertebral arteries was performed. Images were viewed in the transverse and longitudinal planes. FINDINGS: There is mild atherosclerotic plaque. Velocity measurements are listed below. COMMON CAROTID PEAK SYSTOLIC VELOCITY (CM/S): RIGHT 56 LEFT 65 ICA PEAK SYSTOLIC VELOCITY (CM/S): RIGHT 75 LEFT 73 Systolic ratios between the internal to common carotid arteries are normal. Antegrade flow is seen in the vertebral arteries. The external carotid arteries are patent. Blood pressure in the right arm measured 150/80. Blood pressure in the left arm measured 155/80. IMPRESSION: No evidence of a hemodynamically significant stenosis. Electronically signed by: Geovany Kuhn M.D. 02/24/2017 6:51 AM Dictated Date/Time: 02/24/2017 6:48 AM
[2017-02-24 06:53] LABS: HEMOGLOBIN A1C 5.9 % (4.5-5.6)
--- NOTE | 2017-02-24 07:29 | DIAGNOSTIC IMAGING REPORT ---
BILATERAL LOWER EXTREMITY VENOUS DOPPLER CLINICAL HISTORY: Numbness. COMPARISON STUDY: Left lower extremity venous Doppler ultrasound August 18, 2013. TECHNIQUE: Sonography of the deep venous system of the bilateral lower extremities was performed. Compression and augmentation were evaluated. FINDINGS: The bilateral common femoral, superficial femoral and popliteal veins were compressible. Augmentation was normal. Flow was shown within the deep calf vessels. Note is made of a 6.2 x 5 x 1.4 cm complex left anterior calf fluid collection which contains no color flow. IMPRESSION: 1. No evidence of deep venous thrombus within the bilateral lower extremities. 2. 6.2 x 5 x 1.4 cm complex left anterior calf fluid collection which favors a hematoma. Electronically signed by: Geovany Kuhn M.D. 02/24/2017 7:27 AM Dictated Date/Time: 02/24/2017 7:24 AM
[2017-02-24] MEDS: LACTOBACILLUS ACIDOPHILUS (FLORANEX) TAB PO SCH ×3 (08:13→15:14)
[2017-02-24] MEDS: SELEGILINE HCL 5 MG CAP PO SCH ×2 (08:14→13:04)
[2017-02-24] MEDS: CARBIDOPA/LEVODOPA 25/100MG TAB PO SCH ×3 (08:15→23:20)
[2017-02-24] MEDS: MAGNESIUM OXIDE 400 MG TAB PO SCH ×3 (08:15→20:56)
[2017-02-24] MEDS: GABAPENTIN 100 MG CAP PO SCH ×3 (08:15→20:56)
[2017-02-24] MEDS: CHOLECALCIFEROL 1000 INTER.UNIT TAB PO SCH (08:16)
[2017-02-24] MEDS: CLINDAMYCIN HCL 150 MG CAP PO SCH ×3 (08:17→23:20)
[2017-02-24] MEDS ORDERED: POTASSIUM CHLORIDE 8 MEQ TAB PO SCH (09:00)
[2017-02-24] MEDS ORDERED: NON-FORMULARY MEDICATION (Biotin 1 TAB) PO SCH (09:00)
[2017-02-24] MEDS ORDERED: ASPIRIN 81 MG ECTAB PO SCH (09:00)
[2017-02-24] MEDS ORDERED: GADAVIST IV PRN (12:45)
--- NOTE | 2017-02-24 13:30 | ECHOCARDIOGRAM REPORT ---
*NOTICE TO RECEIVING [employer] This information is strictly Confidential and protected under [place] law. [place] law prohibits you from making any further disclosure of this information unless further disclosure is expressly permitted by the written consent of the person to whom it pertains or is authorized by law. A general authorization for the release of medical or other information is not sufficient for this purpose. Hospital accepts no responsibility if the information is made available to any other person, INCLUDING THE PATIENT. Interpretation Summary * Name: BERT STEWARD Study Date: 02/24/2017 08:25 AM BP: 152/80 mmHg * Patient Location: C.2T\S\S235\S\1 HR: 53 * : 1930 (M/d/yyyy) Gender: Female Height: 64 in * Age: 86 yrs Ethnicity: CA Weight: 134 lb * Ordering Physician: Chio Calderon * Referring Physician: Self, Referred * Performed By: Edis Kurtz RDCS * * Reason For Study: Chest pain * BSA: 1.6 m2 * -- Conclusions -- * The left ventricular cavity is small. * There is moderate concentric left ventricular hypertrophy. * The left ventricle is hyperdynamic. * Ejection Fraction = >70 %. * No regional wall motion abnormalities noted. Procedure Details * A complete two-dimensional transthoracic echocardiogram was performed (2D, M-mode, Doppler and color flow Doppler). * The study was technically adequate. Left Ventricle * The left ventricular cavity is small. * There is moderate concentric left ventricular hypertrophy. * Ejection Fraction = >70 %. * The left ventricle is hyperdynamic. * The left ventricular wall motion is normal. * No regional wall motion abnormalities noted. Right Ventricle * The right ventricle is normal in size and function. Atria * The left atrium is moderately dilated. * Right atrial size is normal. * No ASD detected; PFO is not assessed. Mitral Valve * The mitral valve anatomy is normal. * There is no mitral valve stenosis. * There is trace mitral regurgitation. Tricuspid Valve * The tricuspid valve anatomy is normal. * There is no tricuspid stenosis. * There is trace tricuspid regurgitation. Aortic Valve * The aortic valve is trileaflet. * No hemodynamically significant valvular aortic stenosis. * No aortic regurgitation is present. Pulmonic Valve * The pulmonic valve is not well visualized. Great Vessels * The aortic root is normal size. Pericardium/Pleural * A loculated pericardial effusion is noted. * There are no echocardiographic indications of cardiac tamponade. Great Vessels * Normal inferior vena cava diameter and respiratory variation suggests normal central venous pressure. MMode 2D Measurements and Calculations IVSd 0.93 cm IVSs 1.4 cm LVIDd 5.4 cm LVIDs 3.4 cm LVPWd 0.96 cm LVPWs 1.4 cm IVS/LVPW 0.97 FS 38.2 % EDV(Teich) 143.1 ml ESV(Teich) 45.9 ml EF(Teich) 67.9 % EDV(cubed) 160.0 ml ESV(cubed) 37.8 ml EF(cubed) 76.4 % % IVS thick 51.7 % % LVPW thick 46.2 % LV mass(C)d 193.7 grams LV mass(C)dI 117.4 grams/m\S\2 LV mass(C)s 164.6 grams LV mass(C)sI 99.7 grams/m\S\2 SV(Teich) 97.2 ml SI(Teich) 58.9 ml/m\S\2 SV(cubed) 122.3 ml SI(cubed) 74.1 ml/m\S\2 EPSS 0.55 cm Ao root diam 3.1 cm Ao root area 7.8 cm\S\2 ACS 2.0 cm LA dimension 4.8 cm asc Aorta Diam 3.7 cm LA/Ao 1.5 LVOT diam 1.9 cm LVOT area 2.8 cm\S\2 LVAd ap4 17.7 cm\S\2 LVLd ap4 6.9 cm EDV(MOD-sp4) 39.3 ml EDV(sp4-el) 38.7 ml LVAs ap4 9.6 cm\S\2 LVLs ap4 6.3 cm ESV(MOD-sp4) 13.6 ml ESV(sp4-el) 12.3 ml EF(MOD-sp4) 65.5 % EF(sp4-el) 68.2 % LVAd ap2 21.1 cm\S\2 LVLd ap2 7.0 cm EDV(MOD-sp2) 56.4 ml EDV(sp2-el) 54.0 ml LVAs ap2 10.0 cm\S\2 LVLs ap2 5.8 cm ESV(MOD-sp2) 16.1 ml ESV(sp2-el) 14.7 ml EF(MOD-sp2) 71.5 % EF(sp2-el) 72.7 % LVLd %diff 2.2 % EDV(MOD-bp) 47.1 ml LVLs %diff -9.52 % ESV(MOD-bp) 15.4 ml EF(MOD-bp) 67.4 % SV(MOD-sp4) 25.8 ml SI(MOD-sp4) 15.6 ml/m\S\2 SV(MOD-sp2) 40.4 ml SI(MOD-sp2) 24.5 ml/m\S\2 SV(MOD-bp) 31.8 ml SI(MOD-bp) 19.3 ml/m\S\2 SV(sp4-el) 26.4 ml SI(sp4-el) 16.0 ml/m\S\2 SV(sp2-el) 39.2 ml SI(sp2-el) 23.8 ml/m\S\2 Doppler Measurements and Calculations MV E max nirmala 101.6 cm/sec MV A max nirmala 104.3 cm/sec MV E/A 0.97 MV dec time 0.24 sec Ao V2 max 148.5 cm/sec Ao max PG 8.8 mmHg Ao max PG (full) 4.1 mmHg JULIO CÉSAR(V,A) 2.1 cm\S\2 JULIO CÉSAR(V,D) 2.1 cm\S\2 LV V1 max PG 4.7 mmHg LV V1 max 108.7 cm/sec PA V2 max 96.6 cm/sec PA max PG 3.7 mmHg
--- NOTE | 2017-02-24 13:51 | DIAGNOSTIC IMAGING REPORT ---
MRI OF THE BRAIN WITHOUT AND WITH IV CONTRAST CLINICAL HISTORY: Evaluate for stroke. Numbness. COMPARISON STUDY: MRI of the brain June 26, [address] February 23, 2017. TECHNIQUE: Utilizing a 1.5 Zainab magnet and dedicated coil, multiplanar, multiecho imaging of the brain was performed pre and postcontrast administration. IV administration of 6 mL of Gadavist contrast was uneventful. FINDINGS: No foci of restricted diffusion are noted. No acute intracranial hemorrhage, midline shift or mass effect is present. Ventricular system is stable. Basilar cisterns are patent. There are no extra-axial collections. Note is made of an enhancing 1.9 x 1.2 cm extra-axial dural based lesion overlying the anterolateral aspect of the left cerebellar hemisphere. This has minimally increased in size since MRI of July 06, 2015 when it measured 1.8 x 1.2 cm. No additional intracranial masses are present. Scattered white matter T2 hyperintense foci suggest small vessel disease. Flow-voids for the major intracranial vessels are present. IMPRESSION: 1. No acute intracranial findings. 2. Minimal increase in size of a 1.9 x 1.2 cm enhancing extra-axial lesion overlying the left cerebellar hemisphere since MRI of July 06, 2015. This suggests a meningioma. Electronically signed by: Geovany Kuhn M.D. 02/24/2017 1:49 PM Dictated Date/Time: 02/24/2017 1:44 PM
--- NOTE | 2017-02-24 15:42 | CONSULTATION REPORT ---
DATE OF CONSULTATION: 02/24/2017 FOR: Dr. Bro. SUBJECTIVE: Yudelka is 86 years old, currently resides in a home adjacent to her daughters here in [place] and has round the clock medical care. She is a tribal of [place], moved into this area about 4 years ago. She has longstanding Parkinson disease dating back about 10 years with some freezing episodes recently, but treated reasonably effective with two 25/100 Sinemet 3 times a day. She has had other issues including a meningioma in the left posterior fossa, actually more adjacent to the cerebellum and not anywhere near the brainstem, which has been stable in size, is not felt to be a surgical candidate. She has diffuse degenerative joint disease, dyslipidemia, GERD, has had elbow surgery, has had cataract surgery, hernia repair, knee replacements, a T&A and has chronic venous stasis dermatitis in both legs complicated by the development of a post-traumatic hematoma of the left knee about 10 days ago after an injury in a bathtub I believe. She had been on chronic aspirin prior to that but this was stopped. She is here now because of an event that occurred actually 2 days ago that was characterized by the presence of numbness involving her right leg and right hand, although in retrospect she admits that she has had numbness of both hands for years, occurring intermittently at night and often present more in the morning and her scientific investigator admits that she does often wake up and is shaking her hand. There was no involving of the arm or face, and the leg issue according to her comes and goes as well but is not associated with any back pain is more in the knee, at times extends below the knee and I am not sure is a really a new event. Whatever the case, she presented to Dr. Hernandez's office was sent to our ER, was evaluated and a negative CAT scan with the exception that the meningioma in the left posterior fossa was a little larger than on previous studies. No edema was appreciated. Dr. Calderon the admitting physician contacted me who suggested we get an MRI and a duplex of the carotids and an echocardiogram. The MRI shows actually a relatively small amount of old white matter disease, nothing new. Certainly no new strokes and the meningiomas not producing any significant edema or displacement of the cerebellar hemispheres or pressure in the fourth ventricle. There is no hydrocephalus, no other hindbrain malformations. Duplex of the carotids is normal. Echocardiogram is relatively unremarkable and so there was no clearcut source for potential emboli. An EKG apparently showed some T-wave abnormalities, but no atrial fibrillation has been documented. FAMILY HISTORY: Positive for cancer, heart disease, hypertension, and lung disease. SOCIAL HISTORY: Revealed her to be . She has never been a smoker. She does not consume ethanol. She lives here in [place], house adjacent to her daughters. ALLERGIES: She has no known allergies. MEDICATIONS: Up until about 10 days ago included aspirin 81 mg a day, now includes only biotin, Sinemet 25/100 two tablets 3 times daily, cholecalciferol, clindamycin, gabapentin, magnesium oxide, potassium, salicylate and sertraline. REVIEW OF SYSTEMS: Systems review reveals a fairly stable weight, generalized fatigue and lassitude. No clear issues with her head, eyes, ears, nose and throat other than intermittent visual blurring, no new cardiovascular, pulmonary, gastrointestinal or genitourinary issues other than chronic urinary incontinence and then numbness and tingling of her hands and the episodic numbness of the right leg, at least according to what she tells me today. Her Parkinson's is actually fairly stable, although her caregiver states that she often has freezing episodes and this may have been emerging over the past several years. She has not been followed up by neurology since being seen in [place]. PHYSICAL EXAMINATION: VITAL SIGNS: In the Emergency Room, she was noted to have a blood pressure of 168/92, pulse was 77, and respirations were 18. GENERAL: She was awake, alert, oriented in 3 spheres, not appear to be in any apparent distress. HEENT: Unremarkable. NECK: Supple, no carotid bruits were heard. Thyroid was within normal size and consistency, respiratory rate was normal. LUNGS: Clear. HEART: Regular rhythm without murmurs. ABDOMEN: Described as soft, nontender with no enlarged liver or spleen. EXTREMITIES: Venous stasis pigmentation bilaterally, worse on the left where there was a large swollen area consistent with a narrow slowly resolving hematoma on the region of her left knee. NEUROLOGICALLY: Today she is alert, cooperative, oriented in 3 spheres, may have a very mild generalized bradykinetic appearance, but has normal eye movements. No supranuclear gaze disturbance, speech is a little monotonous but is of good volume. Tongue protrudes in the midline. Facial motility and strength is normal. Facial sensation is normal. Visual acuity is grossly intact and visual webb are full to confrontation. There is no drift or pronation sign, tremor, tics or choreiform movement that I can pickup and there is minimal if any cogwheeling requiring some reinforcement to demonstrate, but there is no resting tremor. Lower extremities are motor cool fairly intact allowing for the pain from the hematoma. Facility of rapid repetitive motions are good. Reflexes are actually all present and equal. Toes are downgoing. No Donavan signs are seen. Strength is normal allowing for some giveaway tendencies on the left where the skin and knee joint are painful. Straight leg raising is negative. Lhermitte sign is negative. Spurling sign is negative. There may be some soft tunnel signs of the carpal tunnels. Sensory examination otherwise is intact to vibration, light touch and temperature allowing for vibratory loss distally. IMAGING STUDIES: Imaging studies were reviewed and I see really nothing consistent with a vascular event involving the left hemisphere and the meningioma is only slightly larger and is not compressing any structures that might hav produced her current symptoms, the duplex is normal and the echo shows no source of potential emboli IMPRESSION AND PLAN: The cuase of the constellation of symptoms that prompted admission remains unclear. Her hand numbness may be simply a carpal tunnel issue , her leg numbness could be radicular and at this point, all I would suggest is that she go back on 81 mg of aspirin as I think at this time it is unlikely going to make the hematoma any worse as the hematoma seems to be resolving and is not actively bleeding and may protect against further development of what could have been a TIA. She has expressed a desire to be seen by neurology here in [place], so at the time of discharge, I be happy to look at her in my clinic, but right now, I would make no changes in the overall management of her Parkinson's and certainly would not make any medication changes until such time as I have a chance to see her during the day her more ambulatory status. Unless there are pressing medical issues, i.e., hypertension control, etc., I think she probably could be discharged back to her home situation, either today or tomorrow. I would again reintroduce aspirin 81 mg, nothing will do no harm may have some slight benefit here. CHRISTOPHER
--- NOTE | 2017-02-24 18:23 | Progress Note ---
Internal Med Progress Note Date of Service: Feb 24, 2017. Provider Documentation: SUBJECTIVE: complains of numbness in right extremities has some cramping in right lower extremity afebrile has some pain in left lower extremity recent injury site no sob daughter thinks patient is at her baseline OBJECTIVE: Vital Signs-as noted below Exam: General-alert and awake and not in distress ENT- normal hearing Neck-no neck masses Lungs-cta b/l no wheezing no crackles present Heart-s1 and s2 heard regular rate and rhythm no murmurs Abdomen-soft BS present non tender no distension Extremities- Left lower extremity lump seen at knee region no erythema Neuro-alert and awake moves extremities non focal Lab data as noted below. ASSESSMENT & PLAN: RT SIDED NUMBNESS R/P TIA VS ACUTE CVA presents with numbness and weakness of rt side MRI head unremarkable except for slight increase of meningioma most likley radcular vs TIA as per neurology to restart aspirin pt/ot continue to monitor. LEFT CEREBELLO PONTINE ANGLE MENINGIOMA chronic has been followed with Neurosurgery at [place] -non surgical MRI brain- slight increase in size of meningioma LEFT LEG HEMATOMA /CELLULITIS fell on bathtub striking the faucet on left leg approx 10 days back was in [place] , treated at local hospital , had lower ext USG -shows hematoma on left upper leg on po clindamycin stopped aspirin- restarting now PARKINSON'S DISEASE cont Senemt and /selegiline f/u neurology DVT PROPHYLAXIS : moderate to high risk -minimum ambulatory Sub q heparin not ordered due to hematoma SCD and teds contraindicated due to painful hematoma of leg and cellulitis DNR/DNI -as per H and P DISPOSITION lives at home has 09/10 care givers PT/OT not ordered at admission -as pt and family /caregivers does not want it / Non wt bearing on left side /uses walker possible d/c in am Vital Signs: Date Time Temp Pulse Resp B/P (MAP) Pulse Ox O2 Delivery O2 Flow Rate FiO2 02/24/17 16:04 36.8 74 18 128/74 (92) 96 02/24/17 16:00 96 Room Air 02/24/17 12:06 36.5 66 18 130/73 (92) 92 Room Air 02/24/17 12:00 95 Room Air 02/24/17 08:00 98 Room Air 02/24/17 07:32 36.5 73 16 177/85 (115) 98 Room Air 02/24/17 04:00 Room Air 02/24/17 03:51 36.8 70 18 152/80 (104) 96 Room Air 02/24/17 00:00 Room Air 02/23/17 23:38 36.9 73 18 176/85 (115) 95 Room Air 02/23/17 20:00 Room Air 02/23/17 19:15 36.8 74 18 133/76 (95) 97 Lab Results: Results Past 24 Hours Test 02/24/17 07:25 Range/Units Triglycerides Level 176 0-150 mg/dl Cholesterol Level 229 0-200 mg/dl HDL Cholesterol 88 mg/dl LDL Cholesterol, Calculated 106 mg/dl VLDL Cholesterol, Calculated 35 mg/dl Cholesterol/HDL Ratio 2.6 Microbiology Results 02/24/17 MRSA DNA Surveillance Screen - Final, Complete Specimen Negative for MRSA by DNA Probe
[2017-02-24] MEDS: SERTRALINE HCL 50 MG TAB PO SCH (20:57)
[2017-02-25 04:00] VITALS: BP 157/82; PULSE 72; TEMP 36.8; O2SAT 95
[2017-02-25 07:51] VITALS: BP 160/83; PULSE 89; TEMP 36.7; O2SAT 94
[2017-02-25 08:00] VITALS: O2SAT 95
[2017-02-25] MEDS: ACETAMINOPHEN 325 MG TAB PO PRN (08:43)
[2017-02-25] MEDS: LACTOBACILLUS ACIDOPHILUS (FLORANEX) TAB PO SCH ×2 (08:44→11:30)
[2017-02-25] MEDS: CLINDAMYCIN HCL 150 MG CAP PO SCH ×2 (08:44→13:36)
[2017-02-25] MEDS: CHOLECALCIFEROL 1000 INTER.UNIT TAB PO SCH (08:45)
[2017-02-25] MEDS: CARBIDOPA/LEVODOPA 25/100MG TAB PO SCH (08:45)
[2017-02-25] MEDS: GABAPENTIN 100 MG CAP PO SCH ×2 (08:45→13:35)
[2017-02-25] MEDS: MAGNESIUM OXIDE 400 MG TAB PO SCH ×2 (08:45→13:35)
[2017-02-25] MEDS: SELEGILINE HCL 5 MG CAP PO SCH ×2 (08:46→12:28)
[2017-02-25] MEDS ORDERED: ASPIRIN 81 MG ECTAB PO SCH (09:00)
[2017-02-25] MEDS ORDERED: POTASSIUM CHLORIDE 10 MEQ TABCR PO SCH (09:00)
[2017-02-25 12:00] VITALS: O2SAT 96
[2017-02-25 12:30] VITALS: BP 123/74; PULSE 82; TEMP 36.4; O2SAT 97
--- NOTE | 2017-02-25 13:03 | Discharge Instructions ---
Discharge Instructions Date of Service Feb 25, 2017. Admission Reason for Admission: Cpa Meningioma, Right Sided Weakness Discharge Discharge Diagnosis / Problem: RIGHT SIDED NUMBNESS Discharge Goals Goal(s): Decrease discomfort, Improve function Activity Recommendations Activity Limitations: resume your previous activity ( TOLERATED) . Instructions / Follow-Up Instructions / Follow-Up FOLLOWUP WITH FAMILY DOCTOR ON Feb AT 10:45AM FOLLOWUP WITH NEUROLOGY IN 2-3 WEEKS. RESTARTED ASPIRIN. Current Hospital Diet Patient's current hospital diet: AHA Diet (Heart Healthy) Discharge Diet Recommended Diet: AHA Diet (Heart Healthy) Pending Studies Studies pending at discharge: no Laboratory Results Hemoglobin A1c Test 02/23/17 14:01 Range/Units Estimated Average Glucose 123 mg/dl Hemoglobin A1c 5.9 H 4.5-5.6 % Lipid Panel Test 02/24/17 07:25 Range/Units Triglycerides Level 176 H 0-150 mg/dl Cholesterol Level 229 H 0-200 mg/dl HDL Cholesterol 88 mg/dl Cholesterol/HDL Ratio 2.6 LDL Cholesterol, Calculated 106 mg/dl Medical Emergencies . Who to Call and When: Medical Emergencies: If at any time you feel your situation is an emergency, please call 911 immediately. . Non-Emergent Contact Non-Emergency issues call your: Primary Care Provider . . "Provider Documentation" section prepared by Miko Bro. . VTE Core Measure Inpt VTE Proph given/why not?: Treatment not tolerated, Contraindicated (LEG HEMATOMA )
[2017-02-25 13:09] VITALS: BP 123/74; PULSE 82; TEMP 36.4; O2SAT 97
--- NOTE | 2017-02-25 13:38 | PROGRESS NOTE ---
DATE: 02/25/2017 SUBJECTIVE: Yudelka looks great today. She is sitting up. She is still complaining about leg cramps and obviously the pain from the hematoma in the left knee and medial calf and has stasis dermatitis that she has had all along. She still talks about numbness of her hands, now admits to bilateral, worse in the morning and this really sounds like carpal tunnel syndrome. Parkinson's cool she looks very good, there is minimal bradykinesia, no rigidity, no tremor. At this point, I certainly would not change her medications as for the past 2 days her Parkinson disease is look very well controlled. On discussion with her daughter today, I have agreed to take a look at her mother in 4-6 weeks depending when she can get in for just a routine review of the Parkinson medications and we are going to simply restart her on the aspirin and consider evaluation of carpal tunnels in the future depending on how much the discomfort she is having. She is of advanced age and it is possible that we could talk rheumatology into a trial of steroid injections rather than putting it through a surgical procedure, but first we may indeed have to do an EMG to document presence or absence of this syndrome and will talk about this later on an outpatient basis as she has had the symptoms for years. I talked about her case with Dr. Bro who agreed to discharge her yesterday. CHRISTOPHER
--- NOTE | 2017-02-25 18:35 | Progress Note ---
Internal Med Progress Note Date of Service: Feb 25, 2017. Provider Documentation: SUBJECTIVE: sitting on the chair comfortably still has numbness in right upper and lower extremity eating ok no sob or chest pain ok to go home OBJECTIVE: Vital Signs-as noted below Exam: General-alert and awake and not in distress ENT- normal hearing Neck-no neck masses Lungs-cta b/l no wheezing no crackles present Heart-s1 and s2 heard regular rate and rhythm no murmurs Abdomen-soft BS present non tender no distension Extremities- Left lower extremity lump seen at knee region no erythema Neuro-alert and awake moves extremities non focal Lab data as noted below. ASSESSMENT & PLAN: RT SIDED NUMBNESS R/P TIA VS ACUTE CVA presents with numbness and weakness of rt side MRI head unremarkable except for slight increase of meningioma most likley radicular vs TIA as per neurology restarted aspirin pt/ot stable f/u with neurology. LEFT CEREBELLO PONTINE ANGLE MENINGIOMA chronic has been followed with Neurosurgery at [place] -non surgical MRI brain- slight increase in size of meningioma LEFT LEG HEMATOMA /CELLULITIS fell on bathtub striking the faucet on left leg approx 10 days back was in [place] , treated at local hospital , had lower ext USG -shows hematoma on left upper leg on po clindamycin stopped aspirin- restarting now f/u with pcp PARKINSON'S DISEASE cont Senemt and /selegiline f/u neurology discharged home with previous 09/10 care Vital Signs: Date Time Temp Pulse Resp B/P (MAP) Pulse Ox O2 Delivery O2 Flow Rate FiO2 02/25/17 13:09 36.4 82 18 97 Room Air 02/25/17 12:30 36.4 82 18 123/74 (90) 97 Room Air 02/25/17 12:00 96 Room Air 02/25/17 08:00 95 Room Air 02/25/17 07:51 36.7 89 16 160/83 (108) 94 Room Air 02/25/17 04:00 Room Air 02/25/17 04:00 36.8 72 16 157/82 (107) 95 Room Air 02/24/17 23:59 Room Air 02/24/17 23:59 36.9 78 16 161/96 (117) 98 Room Air 02/24/17 20:00 Room Air 02/24/17 20:00 37.0 75 20 144/81 (102) 98 Room Air
--- NOTE | 2017-02-25 18:57 | Discharge Summary ---
Discharge Summary Date of Service Feb 25, 2017. Discharge Summary Admission Date: Feb 23, 2017 at 15:11 Discharge Date: Feb 25, 2017 Discharge Disposition: Home Principal Diagnosis: RIGHT SIDED NUMBNESS TIA? Secondary Diagnoses/Problems: (1) CPA meningioma Status: Chronic (2) DJD (degenerative joint disease), lumbar Status: Chronic (3) Dyslipidemia Status: Chronic (4) GERD (gastroesophageal reflux disease) Status: Chronic (5) Parkinson's disease Status: Chronic Procedures: CT HEAD: 1. Persistent left posterior fossa extra-axial mass currently measuring 22 mm. This likely represents a meningioma 2. No acute intracranial findings CAROTID US: No evidence of a hemodynamically significant stenosis VENOUS DOPPLER: 1. No evidence of deep venous thrombus within the bilateral lower extremities. 2. 6.2 x 5 x 1.4 cm complex left anterior calf fluid collection which favors a hematoma. BRAIN MRI: 1. No acute intracranial findings. 2. Minimal increase in size of a 1.9 x 1.2 cm enhancing extra-axial lesion overlying the left cerebellar hemisphere since MRI of July 06, 2015. This suggests a meningioma. ECHO: * The left ventricular cavity is small. * There is moderate concentric left ventricular hypertrophy. * The left ventricle is hyperdynamic. * Ejection Fraction = >70 %. * No regional wall motion abnormalities noted. Consultations: NEUROLOGY Medication Reconciliation Continued Medications: Aspirin (Aspirin EC Low Dose) 81 Mg Ectab 81 MG PO DAILY Biotin (Biotin) 1,000 Mcg Tab 1 TAB PO QAM Carbidopa/Levodopa (Sinemet 25MG/100MG) Tab 2 TABS PO TID, TAB 0900, 1500 & 2300 Cholecalciferol (Vitamin D3) 5,000 Unit/Ml Ehsan 1 TAB PO DAILY Clindamycin HCl (Clindamycin HCl) 300 Mg Cap 1 CAP PO TID for 10 Days, #30 Gabapentin (Neurontin) 100 Mg Cap 100 MG PO TID, CAP Magnesium Oxide (Mag-Ox) 400 Mg Tab 400 MG PO TID, TAB Potassium Chloride (K-Tab) 8 Meq Tab 8 MEQ PO DAILY Selegiline Hcl (Eldepryl) 5 Mg Cap 5 MG PO AM AND LUNCH, CAP Sertraline (Zoloft) 50 Mg Tab 50 MG PO HS, TAB Admission Information HPI (per Admitting provider): this is a 86 yo F with past medical hx of Parkinson's disease , GERD , 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 , hx of Psoas hematoma , chronic urinary incontinence, meningioma presented to ED with complain of rt sided weakness and numbness her symptom started approx 1-2 am at night , pt is a poor historian , her daughter and care givers are present at bedside able to provide informations pt had a regular day yesterday , finished her dinner , went to bed with no discomfort, pt has critical care physician staying overnight with she woke up around 1 am , calling for her caregiver -reporting her rt arm and leg feels numb and she can not move them per caregiver pt was still able to move her arm and leg but was very anxious no facial droop, no dysarthria this morning she had breakfast -with no problem no drooling or difficulty in swallowing noted . moving her rt extremity without any difficulty pt was seen at [facility] office today , sent to [facility] by her family physician for stroke work up in the ER , pt remained asymptomatic , complains of numbness of rt hand and arm , no headache -care givers reports pt been complaining of numbness of her rt side on and off for past few weeks has blurred vision in both eyes off and on -per caregivers it has been chronic has traumatic hematoma on left upper leg form recent injury in bathtub faucet approx 10 days back no fever or chills no complain of SOB , no chest heaviness no dizzy spell Physical Exam (per Admitting): General Appearance: no apparent distress Head: normocephalic, atraumatic Eyes: PERRL, EOMI, sclerae normal, + pertinent finding (PT REPORTS OF BLURRED VISION ON LATERAL GAZE ON BOTH EYES ) Neck: thyroid normal, no carotid bruits, trachea midline Respiratory/Chest: chest non-tender, lungs clear, normal breath sounds, no respiratory distress, no accessory muscle use Cardiovascular: regular rate, rhythm Abdomen/GI: normal bowel sounds, non tender, soft Extremities/Musculoskelatal: + pertinent finding (SWELLING /HEMATOMA ON LEFT UPPER LEG + WARMTH /TENDERNESS + 2 PEDAL EDEMA ) Neurologic/Psych: alert, + motor weakness (4/5 ON RT UPPER EXT , 5/5 ON RT LOWER EXT ), + sensory deficit (REPORTS OF NUMB SENSATION ON RT COMPARED TO LEFT ON TOUCH SENSATION ) Skin: + pertinent finding (CHRONIC SKIN CHANGES IN BOTH LOWER EXTREMITIES , NO OPEN WOUND NOTED ) Hospital Course RT SIDED NUMBNESS R/P TIA VS ACUTE CVA presents with numbness and weakness of rt side MRI head unremarkable except for slight increase of meningioma most likley radicular vs TIA as per neurology restarted aspirin pt/ot stable f/u with neurology. LEFT CEREBELLO PONTINE ANGLE MENINGIOMA chronic has been followed with Neurosurgery at [place] -non surgical MRI brain- slight increase in size of meningioma LEFT LEG HEMATOMA /CELLULITIS fell on bathtub striking the faucet on left leg approx 10 days back was in [place] , treated at local hospital , had lower ext USG -shows hematoma on left upper leg on po clindamycin stopped aspirin- restarting now f/u with pcp PARKINSON'S DISEASE cont Senemt and /selegiline f/u neurology discharged home with previous 09/10 care Total time spent on discharge = 35MINUTES This includes examination of the patient, discharge planning, medication reconciliation, and communication with other providers. Discharge Instructions Discharge Instructions Date of Service Feb 25, 2017. Admission Reason for Admission: Cpa Meningioma, Right Sided Weakness Discharge Discharge Diagnosis / Problem: RIGHT SIDED NUMBNESS Discharge Goals Goal(s): Decrease discomfort, Improve function Activity Recommendations Activity Limitations: resume your previous activity ( TOLERATED) . Instructions / Follow-Up Instructions / Follow-Up FOLLOWUP WITH FAMILY DOCTOR ON Feb AT 10:45AM FOLLOWUP WITH NEUROLOGY IN 2-3 WEEKS. RESTARTED ASPIRIN. Current Hospital Diet Patient's current hospital diet: AHA Diet (Heart Healthy) Discharge Diet Recommended Diet: AHA Diet (Heart Healthy) Pending Studies Studies pending at discharge: no Laboratory Results Hemoglobin A1c Test 02/23/17 14:01 Range/Units Estimated Average Glucose 123 mg/dl Hemoglobin A1c 5.9 H 4.5-5.6 % Lipid Panel Test 02/24/17 07:25 Range/Units Triglycerides Level 176 H 0-150 mg/dl Cholesterol Level 229 H 0-200 mg/dl HDL Cholesterol 88 mg/dl Cholesterol/HDL Ratio 2.6 LDL Cholesterol, Calculated 106 mg/dl Medical Emergencies . Who to Call and When: Medical Emergencies: If at any time you feel your situation is an emergency, please call 911 immediately. . Non-Emergent Contact Non-Emergency issues call your: Primary Care Provider . . "Provider Documentation" section prepared by Miko Bro. . VTE Core Measure Inpt VTE Proph given/why not?: Treatment not tolerated, Contraindicated (LEG HEMATOMA )
[2017-03-21] MEDS ORDERED: CEFD300C2 PO (14:10)
[2017-03-21] MEDS ORDERED: FURO-85 PO ×2 (14:13→14:28)
== END 2017-02-25 13:59 | disposition home or self-care (01) | DRG 69 ==
LOC: C.EDB 12:29 → C.2T 15:11 → ENRESERV 15:49 → C.2T 20:06
PROVIDERS: ADMIT Hospitalist; ATTEND Internal Medicine
DX: G45.9 Transient cerebral ischemic attack, unspecified (principal); L03.116 Cellulitis of left lower limb; G56.03 Carpal tunnel syndrome, bilateral upper limbs; M51.16 Intervertebral disc disorders with radiculopathy, lumbar region; D32.0 Benign neoplasm of cerebral meninges; S70.12XA Contusion of left thigh, initial encounter; W18.2XXA Fall in (into) shower or empty bathtub, initial encounter; Y92.002 Bathroom of unspecified non-institutional (private) residence as the place of occurrence of the external cause; I87.2 Venous insufficiency (chronic) (peripheral); G20 Parkinson's disease; K21.9 Gastro-esophageal reflux disease without esophagitis; Z66 Do not resuscitate; Z79.82 Long term (current) use of aspirin; Z79.899 Other long term (current) drug therapy; Z82.49 Family history of ischemic heart disease and other diseases of the circulatory system; Z83.6 Family history of other diseases of the respiratory system

== ENCOUNTER 2017-03-18 19:19 | Inpatient (IN) | payer OTHER ==
[~2017-03-18] VITALS: Ht 162.6 cm; Wt 67.4 kg
[~2017-03-18 19:19] MED LIST changes: -BIOT1CAP4 PO; +BIOT1TAB5 PO
[2017-03-18 20:01] LABS: BASO % 0.1 %; BASO ABS # 0.01 K/uL (0-0.2); EOS % 0.1 %; EOS ABS # 0.01 K/uL (0-0.5); HEMATOCRIT 36.4 % (37-47); HEMOGLOBIN 12.3 g/dL (12.0-16.0); IG# 0.01 K/uL (0.00-0.02); LYMPH % 5.2 %; LYMPH ABS # 0.66 K/uL (1.2-3.4); MEAN CELL VOLUME 92.6 fL (80-100); MEAN CORPUSCULAR HEMOGLOBIN 31.3 pg (25-34); MEAN CORPUSCULAR HGB CONC 33.8 g/dl (32-36); MEAN PLATELET VOLUME 10.3 fL (7.4-10.4); MONO % 9.7 %; MONO ABS # 1.23 K/uL (0.11-0.59); NEUT % 84.8 %; NEUT ABS # 10.78 K/uL (1.4-6.5); PLATELET COUNT 278 K/uL (130-400); RED CELL DISTRIBUTION WIDTH CV 13.9 % (11.5-14.5); RED CELL DISTRIBUTION WIDTH SD 47.5 fL (36.4-46.3)
--- NOTE | 2017-03-18 20:22 | DIAGNOSTIC IMAGING REPORT ---
CHEST ONE VIEW PORTABLE CLINICAL HISTORY: Sepsis dyspnea COMPARISON STUDY: 02/23/2017 FINDINGS: Mild stable cardia megaly. Diaphragms are smooth. The lungs are clear. IMPRESSION: No acute process. Mild stable cardiomegaly. The above report was generated using voice recognition software. It may contain grammatical, syntax or spelling errors. Electronically signed by: Kwasi Keane M.D. 03/18/2017 8:20 PM Dictated Date/Time: 03/18/2017 8:20 PM
[2017-03-18 20:29] LABS: CALCIUM 8.7 mg/dl (8.5-10.1); CREATININE 0.95 mg/dl (0.60-1.20); TOTAL PROTEIN 7.3 gm/dl (6.4-8.2)
[2017-03-18] MEDS ORDERED: CEFTRIAXONE SOD INJ 1 GM ADDVIAL IV STA (20:38)
[2017-03-18] MEDS ORDERED: SODIUM CHLORIDE 0.9% 500ML 500 ML IV STA (20:39)
[2017-03-18 20:42] LABS: POTASSIUM 3.9 mmol/L (3.5-5.1)
[2017-03-18] MEDS ORDERED: CARB25TA12 PO (20:44)
[2017-03-18 20:45] LABS: INR 0.9 (0.9-1.1); PTT PATIENT 35.7 SECONDS (21.0-31.0)
[2017-03-18] MEDS ORDERED: SALI0.657 NAE (20:49)
[2017-03-18] MEDS ORDERED: SALI1SPR3 NAE (20:49)
[2017-03-18] MEDS ORDERED: SERT25TA PO (20:51)
[2017-03-18] MEDS ORDERED: CHOL1TAB76 PO (20:55)
[2017-03-18] MEDS ORDERED: MAGN250T3 PO (20:58)
[2017-03-18] MEDS ORDERED: VALE450C4 PO (21:00)
[2017-03-18] MEDS ORDERED: ONDANSETRON INJ 2 MG/ML 2 ML VIAL IV PRN (21:00)
[2017-03-18] MEDS ORDERED: MISCCAP80 PO (21:01)
[2017-03-18 22:01] VITALS: BP 134/70; PULSE 87; TEMP 37.5; O2SAT 97; BMI 25.9
[2017-03-18] MEDS: NSS + 20MEQ KCL 1000ML 1,000 ML IV SCH (22:44)
[2017-03-18] MEDS: MAGNESIUM OXIDE 400 MG TAB PO SCH (22:45)
[2017-03-18] MEDS: GABAPENTIN 100 MG CAP PO SCH (22:46)
[2017-03-18] MEDS: CARBIDOPA/LEVODOPA 25/100MG TAB PO SCH (22:47)
[2017-03-18] MEDS: SERTRALINE HCL 50 MG TAB PO SCH ×2 (22:48→22:50)
--- NOTE | 2017-03-18 22:52 | HISTORY & PHYSICAL EXAMINATION ---
DATE OF ADMISSION: 03/18/2017 PRIMARY CARE PHYSICIAN: Dr. Hernandez. CHIEF COMPLAINT: Vomiting about 4 times since midnight, fever for the last 3 days and generalized weakness and inability to stand today. HISTORY OF PRESENT COMPLAINT: She is an 86-year-old female with significant past medical history, including Parkinson's disease, requires help for almost every activity, urinary incontinence, GERD, hyperlipidemia, history of meningioma and hypothyroidism; apparently, was noted to have vomiting x4 since midnight yesterday. The caregiver also noticed that she has been unsteady on her feet and getting generally more weak. She also noticed that she has more incontinence of urine and the urine smelt very bad. She also had fever, less than 100 degrees Fahrenheit for the last 3 days. She did have chills this morning and hands were cold and bluish color. She was taken to the Emergency Room. In the ER, she did have fever of 38 degrees Celsius and also her blood pressure was noted to be on the higher side of normal and the looked grossly infected. From that point, she was given ceftriaxone and was advised for admission. PAST MEDICAL HISTORY: Significant for Parkinson's disease, urinary incontinence, GERD, lumbar disc degeneration, bilateral edema, hyperlipidemia, history of meningioma, hypothyroidism. PAST SURGICAL HISTORY: Significant for arthroplasty, left knee, cataract surgery, tonsillectomy as a child and repair of recurrent inguinal hernia. FAMILY HISTORY: Significant in that father did have cancer of the lung and also heart disorder. Mother did have a stroke. SOCIAL HISTORY: She is a . She never smoked. She used alcohol socially and she has a 24-hour caregiver at home for her Parkinson's disease with symptoms. ALLERGIES: NARCOTICS. MEDICATIONS: She has been on magnesium sulfate 200 mg b.i.d., probiotic product 1 capsule in the morning and also aspirin 81 mg daily, carbidopa/levodopa 25/100 as directed, Colicalcipral 4000 units daily, Neurontin 100 mg t.i.d., potassium 80 mEq daily, saline nasal spray as directed, Selegiline 5 mg a.m. at lunch and sertraline 25 mg at night. REVIEW OF SYSTEMS: Other systems reviewed are unremarkable, except those mentioned in the history of present complaint. PHYSICAL EXAMINATION: GENERAL: On examination in the Emergency Room, she was not having any acute distress. In fact, she could not tell why is she here today. VITAL SIGNS: Temperature 38.0, pulse was 83, blood pressure 146/78, saturation 98% on room air. HEENT: Unremarkable. She looked flushed. NECK: Supple. No JVD, no bruit. CHEST: Clear to auscultate bilaterally. HEART: S1, S2 regular. ABDOMEN: Soft, mildly tender in the hypogastrium, no organomegaly. Bowel sounds present. EXTREMITIES: No edema, chronic skin changes. She does have a hematoma on the upper medial aspect of the left leg and her right upper leg is bandaged due to minor injuries. CENTRAL NERVOUS SYSTEM: She was alert, awake, oriented. She was generally weak, but did not have any focal neuro deficit. LABORATORY DATA: Noted today, white count was 12.70, H&H 12.3/36.4, platelet was 278. Sodium 132, potassium 3.9, chloride 98, carbon dioxide 26, BUN 15, creatinine 0.95, random glucose 115, lactic acid 1.16. Alkaline phosphatase slightly elevated at 159. Albumin 3.0. PT/INR unremarkable. The PT ratio was 1.4. UA examination is suggestive of infection. Chest x-ray, no acute process, mild cardiomegaly. EKG was not done. IMPRESSION AND PLAN: 1. Urinary tract infection. The patient will be admitted to medical floor under observation. Blood culture, urine culture taken and she was started with intravenous ceftriaxone. We will continue with that. We will await further urine culture for a preventative antibiotic to be given before discharge. 2. Parkinson disease. She needs help for every ADL. She has a 24-hour caregiver. We will get physical therapy evaluation before discharge from the hospital. 3. Chronic back pain has been taking pain medications, but ALLERGIC TO NARCOTICS. Continue with those. 4. Gastroesophageal reflux disease. We will give Maalox, Mylanta as needed. 5. Deep venous thrombosis prophylaxis with subcutaneous heparin. CODE STATUS: Discussed with the daughter and the patient herself. She will be a full code now. In my clinical assessment, the patient meets criteria as per CMS for 2 midnight stay in the hospital. CHRISTOPHER
[2017-03-18] MEDS ORDERED: VALERIAN PO SCH (23:00)
[2017-03-18] MEDS ORDERED: [UNRECOGNIZED DRUG - OTHER] PO SCH (23:00)
[2017-03-18] MEDS: SODIUM CHLORIDE 0.65% NA SOLN 45 ML (OCEAN) NAE SCH ×2 (23:10→23:11)
[2017-03-18] MEDS ORDERED: IV FLUIDS COMPLETED PRN (23:30)
--- NOTE | 2017-03-18 23:36 | EMERGENCY ROOM VISIT NOTE ---
History Report prepared by Brook: Elizabeth De Paz Under the Supervision of: Dr. Dylan Tinoco M.D. First contact with patient: 19:29 Chief Complaint: WEAKNESS Stated Complaint: COLD,UNSTEADY,MORE INCONTENENCE History of Present Illness The patient is a 86 year old female who presents to the Emergency Room with complaints of worsening generalized weakness beginning about four days ago. Per family, the patient has had a fever for the last four nights. At its highest , the patient's was 101 degrees Fahrenheit. Family states the patient has had foul smelling urine over the past couple days. At baseline, the patient is incontinent. Family reports the patient has been more incontinent than her baseline over the past couple days. Last night the patient vomited four times. Family reports the patient was also short of breath this morning while standing which is not normal for her. The patient denies any chest pain, shortness of breath, abdominal pain. The patient took Tylenol about three and a half hours ago. The patient's family reports she fell two nights ago and the caregiver caught her. She did not hit her head or loose consciousness. The patient's family reports the patient's mental status has been mostly baseline with some intermittent confusion. Source of History: patient Onset: 4 days ago Position: other (generalized) Quality: other (weakness) Timing: worsening Associated Symptoms: + fevers, No chest pain, No SOB, No abdominal pain Review of Systems See HPI for pertinent positives & negatives. A total of 10 systems reviewed and were otherwise negative. 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), lumbar (3) Dyslipidemia (4) Generalized weakness (5) GERD (gastroesophageal reflux disease) (6) Parkinson disease (7) Parkinson's disease (8) Right sided weakness (9) UTI (urinary tract infection) Surgical Problems: (1) H/O elbow surgery (2) History of cataract surgery (3) S/P hernia repair (4) S/P knee replacement (5) S/P tonsillectomy and adenoidectomy Family History FH: cancer FH: heart disease FH: hypertension FH: lung disease Social History Smoking Status: Former Smoker Alcohol Use: none Drug Use: none Marital Status: Housing Status: lives with family Occupation Status: retired Current/Historical Medications Scheduled Aspirin (Aspirin EC Low Dose), 81 MG PO DAILY Carbidopa/Levodopa (Sinemet 25MG/100MG), 2 TABS PO TID Carbidopa/Levodopa (Sinemet 25MG/100MG), 1 TAB PO QAM Cholecalciferol (D 2000), 4,000 PO QAM Gabapentin (Neurontin), 100 MG PO TID Magnesium (Magnesium 250 mg), 250 MG PO BID Potassium Chloride (K-Tab), 8 MEQ PO DAILY Probiotic Product (Probiotic), 1 CAP PO QAM Saline (Saline Nasal [place]), 2 SPRAYS ANURAG QAM Saline ([place]), 1 SPRY ANURAG HS Selegiline Hcl (Eldepryl), 5 MG PO BID Sertraline (Zoloft), 25 MG PO HS Valerian (Valeriana Officinali (Valerian Root), 450 MG PO QPM@2300 Allergies Uncoded Allergies: NARCOTICS (Adverse Reaction, Unknown, DIZZY, , 06/25/15) Physical Exam Vital Signs Date Time Temp Pulse Resp B/P (MAP) Pulse Ox O2 Delivery O2 Flow Rate FiO2 03/18/17 20:30 131/68 03/18/17 20:15 88 97 03/18/17 20:00 145/71 03/18/17 19:45 84 25 150/71 98 03/18/17 19:45 84 150/71 98 Room Air 03/18/17 19:44 98 Room Air 03/18/17 19:37 85 03/18/17 19:24 38.0 83 18 146/78 98 Room Air Physical Exam Constitutional: Vital signs reviewed. Eyes: Pupils are equal round reactive to light. Conjunctiva are noninjected. ENT: Pharynx is clear without erythema or exudate. Mucous membranes are moist. Neck supple without meningeal signs. Respiratory: Clear to auscultation bilaterally. Breath sounds are equal bilaterally. Cardiovascular: Regular rate and rhythm. No rubs or gallops. GI: Soft, nondistended and nontender. Bowel sounds are present. Musculoskeletal: Skin tear to right lower leg with no signs of cellulitis. Integumentary: No cyanosis. Neurological: The patient is awake and alert. No focal deficits. Psychiatric: Normal affect. Medical Decision & Procedures ER Provider Diagnostic Interpretation: Radiology results as stated below per my review and the radiologist's interpretation: CHEST ONE VIEW PORTABLE FINDINGS: Mild stable cardia megaly. Diaphragms are smooth. The lungs are clear. IMPRESSION: No acute process. Mild stable cardiomegaly. The above report was generated using voice recognition software. It may contain grammatical, syntax or spelling errors. Electronically signed by: Kwasi Keane M.D. Laboratory Results 03/18/17 19:44 Red Blood Count 3.93, Mean Corpuscular Volume 92.6, Mean Corpuscular Hemoglobin 31.3, Mean Corpuscular Hemoglobin Concent 33.8, Mean Platelet Volume 10.3, Neutrophils (%) (Auto) 84.8, Lymphocytes (%) (Auto) 5.2, Monocytes (%) (Auto) 9.7, Eosinophils (%) (Auto) 0.1, Basophils (%) (Auto) 0.1, Neutrophils # (Auto) 10.78, Lymphocytes # (Auto) 0.66, Monocytes # (Auto) 1.23, Eosinophils # (Auto) 0.01, Basophils # (Auto) 0.01 03/18/17 19:44 03/18/17 20:15 Test 03/18/17 19:40 03/18/17 19:44 03/18/17 19:50 03/18/17 20:15 Urine Color DK YELLOW Urine Appearance CLOUDY (CLEAR) Urine pH 6.5 (4.5-7.5) Urine Specific [place] 1.018 (1.000-1.030) Urine Protein 2+ (NEG) Urine Glucose (UA) NEG (NEG) Urine Ketones NEG (NEG) Urine Occult Blood 3+ (NEG) Urine Nitrite POS (NEG) Urine Bilirubin NEG (NEG) Urine Urobilinogen NEG (NEG) Urine Leukocyte Esterase MODERATE (NEG) Urine WBC (Auto) >30 /hpf (0-5) Urine RBC (Auto) >30 /hpf (0-4) Urine Hyaline Casts (Auto) 5-10 /lpf (0-5) Urine Epithelial Cells (Auto) 5-10 /lpf (0-5) Urine Bacteria (Auto) 4+ (NEG) Urine Pathogenic Casts /lpf (0) Urine Yeast (Auto) PRESENT (NONE PRSENT) White Blood Count 12.70 K/uL (4.8-10.8) Red Blood Count 3.93 M/uL (4.2-5.4) Hemoglobin 12.3 g/dL (12.0-16.0) Hematocrit 36.4 % (37-47) Mean Corpuscular Volume 92.6 fL (80-100) Mean Corpuscular Hemoglobin 31.3 pg (25-34) Mean Corpuscular Hemoglobin Concent 33.8 g/dl (32-36) Platelet Count 278 K/uL (130-400) Mean Platelet Volume 10.3 fL (7.4-10.4) Neutrophils (%) (Auto) 84.8 % Lymphocytes (%) (Auto) 5.2 % Monocytes (%) (Auto) 9.7 % Eosinophils (%) (Auto) 0.1 % Basophils (%) (Auto) 0.1 % Neutrophils # (Auto) 10.78 K/uL (1.4-6.5) Lymphocytes # (Auto) 0.66 K/uL (1.2-3.4) Monocytes # (Auto) 1.23 K/uL (0.11-0.59) Eosinophils # (Auto) 0.01 K/uL (0-0.5) Basophils # (Auto) 0.01 K/uL (0-0.2) RDW Standard Deviation 47.5 fL (36.4-46.3) RDW Coefficient of Variation 13.9 % (11.5-14.5) Immature Granulocyte % (Auto) 0.1 % Immature Granulocyte # (Auto) 0.01 K/uL (0.00-0.02) Anion Gap 8.0 mmol/L (3-11) Est Creatinine Clear Calc Drug Dose 35.4 ml/min Estimated GFR () 62.0 Estimated GFR (Non- 53.5 BUN/Creatinine Ratio 15.4 (10-20) Calcium Level 8.7 mg/dl (8.5-10.1) Total Bilirubin 0.7 mg/dl (0.2-1) Alanine Aminotransferase (ALT/SGPT) 26 U/L (12-78) Alkaline Phosphatase 159 U/L (45-117) Total Protein 7.3 gm/dl (6.4-8.2) Albumin 3.0 gm/dl (3.4-5.0) Globulin 4.3 gm/dl (2.5-4.0) Albumin/Globulin Ratio 0.7 (0.9-2) Bedside Lactic Acid Venous 1.16 mmol/L (0.90-1.70) Prothrombin Time 9.7 SECONDS (9.0-12.0) Prothromb Time International Ratio 0.9 (0.9-1.1) Activated Partial Thromboplast Time 35.7 SECONDS (21.0-31.0) Partial Thromboplastin Ratio 1.4 Direct Bilirubin 0.1 mg/dl (0-0.2) Aspartate Amino Transf (AST/SGOT) 42 U/L (15-37) Laboratory results as reviewed by me. Medications Administered Medications (Trade) Dose Ordered Sig/Payton Route Start Time Stop Time Status Last Admin Dose Admin Ceftriaxone Sodium (Rocephin Inj) 1 gm NOW STAT IV 03/18/17 20:38 03/18/17 20:39 DC 03/18/17 20:44 1 GM Sodium Chloride 500 ml @ 999 mls/hr Q31M STAT IV 03/18/17 20:39 03/18/17 21:09 DC 03/18/17 20:44 999 MLS/HR ED Course 1934: The patient was evaluated in room A9B. A complete history and physical exam was performed. 2037: Ordered Rocephin Inj 1 gm IV. 2038: Ordered Sodium Chloride 500 ml @ 999 mls/hr IV. 2040: I spoke with Dr. Garcia of [facility]. We discussed the patient and her results. The patient will be further evaluated by him. 2047: I updated the patient on her test results. Medical Decision This is an 86-year-old female who presents with weakness and fever. Differential diagnoses include sepsis, SIRS, UTI, pneumonia, metabolic derangement. I did perform a limited focused review of portions of the patient' s old chart on the electronic medical record. The patient was admitted February 23 for right sided numbness and possible TIA. The patient had an MRI of the brain which was unremarkable besides a meningioma. I did evaluate the patient as noted above. IV access was established. The patient was placed on a continuous cardiac catheterization technologist. I did order and personally review the patient's urinalysis and chest x-ray as described above. She does have a UTI. A urine culture was sent. I did order and review the patient's blood work as noted in the electronic medical record. I did treat the patient with ceftriaxone IV. I did discuss case with the hospitalist and telephonic case manager. I did discuss the test results with the patient and her family. Medication Reconcilliation Current Medication List: was personally reviewed by me Blood Pressure Screening Patient's blood pressure: Elevated blood pressure Blood pressure disposition: Referred to PCP Consults Time Called: 2034 Consulting Physician: Dr. Guthrie Returned Call: [address] Garcia of [facility]. We discussed the patient and her results. The patient will be further evaluated by him. Impression Primary Impression: UTI (urinary tract infection) Additional Impression: Generalized weakness Scribe Attestation The scribe's documentation has been prepared under my direct and personally reviewed by me in its entirety. I confirm that the note above accurately reflects all work, treatment, procedures, and medical decision making performed by me. Departure Information Dispostion Being Evaluated By Hospitalist Referrals Paulo Hernandez D.O. (PCP) Patient Instructions [facility] Problem Qualifiers Primary Impression: UTI (urinary tract infection) Urinary tract infection type: acute cystitis Hematuria presence: with hematuria Qualified Codes: N30.01 - Acute cystitis with hematuria
[2017-03-19] VITALS (11 sets, daily range): BP systolic 152–184; BP diastolic 72–96; PULSE 79–92; TEMP 36.7–37.5; O2SAT 88–98
[2017-03-19] MEDS: CLONIDINE HCL 0.1 MG TAB PO PRN ×2 (03:59→22:08)
[2017-03-19] MEDS: CARBIDOPA/LEVODOPA 25/100MG TAB PO SCH ×4 (06:38→23:00)
[2017-03-19 06:45] LABS: HEMATOCRIT 35.2 % (37-47); HEMOGLOBIN 11.5 g/dL (12.0-16.0); MEAN CELL VOLUME 92.9 fL (80-100); MEAN CORPUSCULAR HEMOGLOBIN 30.3 pg (25-34); MEAN CORPUSCULAR HGB CONC 32.7 g/dl (32-36); MEAN PLATELET VOLUME 10.2 fL (7.4-10.4); PLATELET COUNT 276 K/uL (130-400); RED CELL DISTRIBUTION WIDTH CV 14.2 % (11.5-14.5); WHITE BLOOD COUNT 10.16 K/uL (4.8-10.8)
[2017-03-19 07:11] LABS: CALCIUM 8.1 mg/dl (8.5-10.1); CREATININE 0.89 mg/dl (0.60-1.20); POTASSIUM 3.8 mmol/L (3.5-5.1)
[2017-03-19] MEDS: ASPIRIN 81 MG ECTAB PO SCH (07:22)
[2017-03-19] MEDS: GABAPENTIN 100 MG CAP PO SCH ×3 (07:22→21:39)
[2017-03-19] MEDS: SODIUM CHLORIDE 0.65% NA SOLN 45 ML (OCEAN) NAE SCH ×2 (07:22→21:37)
[2017-03-19] MEDS: MAGNESIUM OXIDE 400 MG TAB PO SCH ×3 (07:23→21:40)
[2017-03-19] MEDS: POTASSIUM CHLORIDE 10 MEQ TABCR PO SCH (07:23)
[2017-03-19] MEDS: CHOLECALCIFEROL 1000 INTER.UNIT TAB PO SCH (07:23)
[2017-03-19] MEDS: LACTOBACILLUS ACIDOPHILUS (FLORANEX) TAB PO SCH (07:24)
[2017-03-19] MEDS ORDERED: MAGNESIUM 250 MG PO SCH (08:00)
[2017-03-19] MEDS ORDERED: NON-FORMULARY MEDICATION (Biotin 1 TAB) PO SCH (09:00)
[2017-03-19] MEDS: SELEGILINE HCL 5 MG CAP PO SCH ×2 (09:15→16:02)
[2017-03-19] MEDS: HEPARIN SOD 5000 UNIT/0.5 ML CARP SQ SCH ×2 (09:17→21:45)
--- NOTE | 2017-03-19 11:07 | DIAGNOSTIC IMAGING REPORT ---
KUB CLINICAL HISTORY: Generalized abdominal pain. FINDINGS: 2 AP, portable, supine abdominal radiographs are correlated with radiographs of lumbar spine dated 06/30/2013. There is no evidence of bowel obstruction. No evidence of intraperitoneal free air is seen on these supine views. There are no abnormal abdominal calcifications. There is gaseous distention of the sigmoid colon in the right lower quadrant which measures up to 6.5 cm. Mucosal thickening/edema is suspected. The skeletal structures are osteopenic. Lumbar sacral spondylosis and scoliosis are observed. IMPRESSION: 1. There is no radiographic evidence of bowel obstruction. 2. There is gaseous distention of the sigmoid colon, with mild distention of the upstream colon. Mucosal edema is suggested in the sigmoid region. This could represent a nonspecific colitis, or less likely could potentially be related to sigmoid volvulus. Clinical correlation will be required. Consider short-term radiographic follow-up. Electronically signed by: Jamar Sue M.D. 03/19/2017 11:06 AM Dictated Date/Time: 03/19/2017 11:02 AM
[2017-03-19] MEDS: NSS + 20MEQ KCL 1000ML 1,000 ML IV SCH (11:55)
[2017-03-19] MEDS ORDERED: OPTIRAY 320 IV PRN (13:30)
--- NOTE | 2017-03-19 16:42 | DIAGNOSTIC IMAGING REPORT ---
CT SCAN OF THE ABDOMEN AND PELVIS WITH IV CONTRAST CLINICAL HISTORY: Left lower quadrant abdominal pain. Distention. COMPARISON STUDY: KUB dated 03/19/2017. Pelvic CT dated 07/21/2011. TECHNIQUE: Following the IV administration of 92 cc of Optiray 320, CT scan of the abdomen and pelvis is performed from the lung bases to the proximal femora. Images are reviewed in the axial, sagittal, and coronal planes. IV contrast was administered without complication. A dose lowering technique was utilized adhering to the principles of ALARA. The Examination is degraded by motion artifact. CT DOSE: 444.11 mGy.cm FINDINGS: Lung bases: The heart is top normal in size and without pericardial effusion. There are small pleural effusions with bibasilar atelectasis. Liver: The contrast-enhanced liver is normal in size, contour, and attenuation. There is no intrahepatic biliary ductal dilatation. The hepatic veins and portal veins are patent. Scattered subcentimeter hepatic hypodensities likely represent cysts but are too small for definitive characterization. Gallbladder: Unremarkable. Spleen: Normal in size and attenuation. Pancreas: Moderately atrophic and grossly unremarkable. Adrenal glands: Unremarkable. Kidneys: The contrast enhanced kidneys demonstrate cortical atrophy and are without hydronephrosis. There is heterogeneous perfusion of the right kidney as compared to the left. A subcentimeter cortical hypodensity in the right kidney likely represents a cyst but is too small for definitive characterization. Abdominal vasculature: The abdominal aorta is normal in course and caliber noting mild to moderate atherosclerotic calcification. Bowel: The sigmoid colon is long and tortuous. The sigmoid colon is under distended. There are scattered colonic diverticula without CT evidence of acute diverticulitis. No bowel obstruction is identified. The appendix is not identified. Peritoneum: There is no intraperitoneal free air. Trace free fluid is seen in the pelvis. Lymphadenopathy: None. Pelvic viscera: The bladder is decompressed and grossly unremarkable. There are calcified uterine fibroids. No adnexal lesion is seen. Skeletal structures: The skeletal structures are osteopenic. Moderate lumbosacral spondylosis is observed. No lytic or blastic lesions are seen. IMPRESSION: 1. Motion degraded examination. 2. There is heterogeneous perfusion of the right kidney as compared to the left. This is nonspecific and could be seen in the setting of pyelonephritis or less likely a vascular insult. Correlation with clinical findings and urinalysis will be required. 3. There is no bowel obstruction. No significant colonic abnormality is identified as questioned by x-ray. 4. There are small pleural effusions with bibasilar atelectasis. 5. There is a small volume of free fluid in the pelvis. 6. Additional findings as above. Electronically signed by: Jamar Sue M.D. 03/19/2017 4:41 PM Dictated Date/Time: 03/19/2017 4:33 PM
--- NOTE | 2017-03-19 19:23 | Progress Note ---
Medicine Progress Note Date & Time of Visit: Mar 19, 2017 at 19:18. Subjective Patient states she is hungry but does report having abdominal discomfort and abdominal distension. She reports her symptoms have been better since having a BM. Overnight abdominal pain noted. No new complaints. Daughter and a caregiver were at the bedside and updated. Objective Last 8 Hrs Date Time Temp Pulse Resp B/P (MAP) Pulse Ox O2 Delivery O2 Flow Rate FiO2 03/19/17 16:20 96 Room Air 03/19/17 15:31 36.9 79 18 152/72 (98) 96 Room Air Physical Exam: GENERAL: Patient is in no acute distress. HEENT: No acute trauma, normocephalic, mucous membranes moist, no nasal congestion, no scleral icterus. NECK: No stridor, trachea is midline. LUNGS: Clear to auscultation bilaterally, no wheeze, no rhonchi, breath sounds equal. HEART: Without murmurs gallops or rubs, regular rate and rhythm. ABDOMEN: Soft, nontender, bowel sounds positive, distended EXTREMITIES: No cyanosis or edema, moving all 4 extremities without pain or difficulty NEUROLOGIC: Oriented x 3, no acute motor or sensory deficits, no focal weakness. SKIN: No rash, no jaundice, no diaphoresis. Laboratory Results: Last 24 Hours Test 03/18/17 19:40 03/18/17 19:44 03/18/17 19:50 03/18/17 20:15 Urine Color DK YELLOW Urine Appearance CLOUDY Urine pH 6.5 Urine Specific [place]aud 1.018 Urine Protein 2+ Urine Glucose (UA) NEG Urine Ketones NEG Urine Occult Blood 3+ Urine Nitrite POS Urine Bilirubin NEG Urine Urobilinogen NEG Urine Leukocyte Esterase MODERATE Urine WBC (Auto) >30 /hpf Urine RBC (Auto) >30 /hpf Urine Hyaline Casts (Auto) 5-10 /lpf Urine Epithelial Cells (Auto) 5-10 /lpf Urine Bacteria (Auto) 4+ Urine Pathogenic Casts /lpf Urine Yeast (Auto) PRESENT White Blood Count 12.70 K/uL Red Blood Count 3.93 M/uL Hemoglobin 12.3 g/dL Hematocrit 36.4 % Mean Corpuscular Volume 92.6 fL Mean Corpuscular Hemoglobin 31.3 pg Mean Corpuscular Hemoglobin Concent 33.8 g/dl Platelet Count 278 K/uL Mean Platelet Volume 10.3 fL Neutrophils (%) (Auto) 84.8 % Lymphocytes (%) (Auto) 5.2 % Monocytes (%) (Auto) 9.7 % Eosinophils (%) (Auto) 0.1 % Basophils (%) (Auto) 0.1 % Neutrophils # (Auto) 10.78 K/uL Lymphocytes # (Auto) 0.66 K/uL Monocytes # (Auto) 1.23 K/uL Eosinophils # (Auto) 0.01 K/uL Basophils # (Auto) 0.01 K/uL RDW Standard Deviation 47.5 fL RDW Coefficient of Variation 13.9 % Immature Granulocyte % (Auto) 0.1 % Immature Granulocyte # (Auto) 0.01 K/uL Sodium Level 132 mmol/L Potassium Level mmol/L 3.9 mmol/L Chloride Level 98 mmol/L Carbon Dioxide Level 26 mmol/L Anion Gap 8.0 mmol/L Blood Urea Nitrogen 15 mg/dl Creatinine 0.95 mg/dl Est Creatinine Clear Calc Drug Dose 35.4 ml/min Estimated GFR () 62.0 Estimated GFR (Non- 53.5 BUN/Creatinine Ratio 15.4 Random Glucose 115 mg/dl Calcium Level 8.7 mg/dl Total Bilirubin 0.7 mg/dl Direct Bilirubin mg/dl 0.1 mg/dl Aspartate Amino Transf (AST/SGOT) U/L 42 U/L Alanine Aminotransferase (ALT/SGPT) 26 U/L Alkaline Phosphatase 159 U/L Total Protein 7.3 gm/dl Albumin 3.0 gm/dl Globulin 4.3 gm/dl Albumin/Globulin Ratio 0.7 Bedside Lactic Acid Venous 1.16 mmol/L Prothrombin Time 9.7 SECONDS Prothromb Time International Ratio 0.9 Activated Partial Thromboplast Time 35.7 SECONDS Partial Thromboplastin Ratio 1.4 Test 03/19/17 06:19 White Blood Count 10.16 K/uL Red Blood Count 3.79 M/uL Hemoglobin 11.5 g/dL Hematocrit 35.2 % Mean Corpuscular Volume 92.9 fL Mean Corpuscular Hemoglobin 30.3 pg Mean Corpuscular Hemoglobin Concent 32.7 g/dl RDW Standard Deviation 48.0 fL RDW Coefficient of Variation 14.2 % Platelet Count 276 K/uL Mean Platelet Volume 10.2 fL Sodium Level 134 mmol/L Potassium Level 3.8 mmol/L Chloride Level 103 mmol/L Carbon Dioxide Level 26 mmol/L Anion Gap 5.0 mmol/L Blood Urea Nitrogen 14 mg/dl Creatinine 0.89 mg/dl Est Creatinine Clear Calc Drug Dose 41.5 ml/min Estimated GFR () 67.1 Estimated GFR (Non- 57.9 BUN/Creatinine Ratio 16.0 Random Glucose 112 mg/dl Calcium Level 8.1 mg/dl Magnesium Level 2.2 mg/dl Date/Time Source Procedure Growth Status 03/18/17 19:44 Blood Blood Culture Pending Received 03/18/17 19:40 Blood Blood Culture - Preliminary Gram Negative Bacilli Resulted 03/18/17 19:40 Urine,Catheterized Urine Culture - Preliminary Gram Negative Bacilli Resulted Assessment & Plan BACTEREMIA: LIKELY SECONDARY TO UTI: -continued on ceftriaxone until culture and sensitivities available -Blood culture 1/2 positive and urine culture growing gram negative bacilli -hydrated with IV fluids ABDOMINAL PAIN/DISTENSION: -improved following a BM -still distended but passing flatus and KUB non-obstructive -CT abd/pelvis ordered to evaluate for colitis PARKINSON DISEASE: -dependant for all ADLs -at home has a 24-hour caregiver -PT/OT evaluation before discharge from the hospital. CHRONIC BACK PAIN: -continued on pain medications, but ALLERGIC TO NARCOTICS. GERD: -stable -on PRN Maalox, Mylanta Current Inpatient Medications: Current Inpatient Medications Medications (Trade) Dose Ordered Sig/Payton Route Start Time Stop Time Status Last Admin Dose Admin Ondansetron HCl (Zofran Inj) 4 mg Q6H PRN IV 03/18/17 21:00 04/17/17 20:59 Heparin Sodium (Porcine) (Heparin Sq 5000 Unit/0.5ml) 5,000 unit Q12H SQ 03/19/17 09:00 04/18/17 08:59 03/19/17 09:17 5,000 UNIT Aspirin (Ecotrin Tab) 81 mg DAILY PO 03/19/17 08:00 04/18/17 08:59 03/19/17 07:22 81 MG Carbidopa/Levodopa (Sinemet 25/ 100MG Tab) 1 tab DAILY@0700 PO 03/19/17 07:00 04/18/17 06:59 03/19/17 06:38 1 TAB Carbidopa/Levodopa (Sinemet 25/ 100MG Tab) 2 tab TID@0900,1500,2300 PO 03/18/17 23:00 04/17/17 22:59 03/19/17 16:02 2 TAB Gabapentin (Neurontin Cap) 100 mg TID PO 03/18/17 21:00 04/17/17 20:59 03/19/17 14:43 100 MG Magnesium Oxide (Mag-Ox Tab) 400 mg TID PO 03/18/17 21:00 04/17/17 20:59 03/19/17 14:43 400 MG Sodium Chloride ([place] Nasal [place]) 1 sprays HS ANURAG 03/18/17 21:00 04/17/17 20:59 03/18/17 23:11 1 SPRAYS Sodium Chloride ([place] Nasal [place]) 2 sprays QAM ANURAG 03/19/17 08:00 04/18/17 08:59 03/19/17 07:22 2 SPRAYS Selegiline HCl (Eldepryl Cap) 5 mg BID@0900,1500 PO 03/19/17 09:00 04/18/17 08:59 03/19/17 16:02 5 MG Sertraline HCl (Zoloft Tab) 25 mg HS PO 03/18/17 21:00 04/17/17 20:59 03/18/17 22:50 25 MG Cholecalciferol (Vitamin D Tab) 4,000 inter.unit QAM PO 03/19/17 08:00 04/18/17 08:59 03/19/17 07:23 4,000 INTER.UNIT Potassium Chloride (Klor-Con M10) 10 meq DAILY PO 03/19/17 08:00 04/18/17 08:59 03/19/17 07:23 10 MEQ Ceftriaxone Sodium 1000 mg/ Dextrose 60 ml @ 100 mls/hr DAILY@2100 IV 03/19/17 21:00 03/23/17 20:59 Lactobacillus Acidophilus (Floranex Tab) 4 tab QAM PO 03/19/17 08:00 04/18/17 08:59 03/19/17 07:24 4 TAB Potassium Chloride/Sodium Chloride 1,000 ml @ 75 mls/hr [id number] IV 03/18/17 22:00 03/20/17 00:39 03/19/17 11:55 75 MLS/HR Miscellaneous (Iv Fluids Completed) 1 ea PRN PRN N/A 03/18/17 23:30 03/18/18 23:29 Clonidine HCl (Catapres Tab) 0.1 mg Q6H PRN PO 03/19/17 03:45 04/18/17 03:44 03/19/17 03:59 0.1 MG Ioversol (Optiray 320) 111 ml UD PRN IV 03/19/17 13:30 03/23/17 13:29
[2017-03-19] MEDS: CEFTRIAXONE SOD INJ 1,000 MG in DEXTROSE 5% 50ML 50 ML IV SCH (21:33)
[2017-03-19] MEDS: SERTRALINE HCL 50 MG TAB PO SCH (22:05)
[2017-03-19] MEDS ORDERED: LEVALBUTEROL/IPRATROPIUM NEB INH ONE (23:15)
[2017-03-19] MEDS ORDERED: IPRATROPIUM BROMIDE NEB SOLN 0.02% 2.5 ML VIAL INH ONE (23:30)
[2017-03-19] MEDS ORDERED: LEVALBUTEROL 1.25MG/0.5ML NEB INH ONE (23:30)
[2017-03-19] MEDS ORDERED: FUROSEMIDE INJ 20 MG in SYRINGE 0 ML IV ONE (23:45)
[2017-03-20] VITALS (8 sets, daily range): BP systolic 134–182; BP diastolic 73–93; PULSE 78–98; TEMP 36.4–37.4; O2SAT 92–97; Ht 162.6 cm; Wt 67.4 kg
[2017-03-20] MEDS ORDERED: LISINOPRIL 5 MG TAB PO ONE (02:00)
--- NOTE | 2017-03-20 06:32 | DIAGNOSTIC IMAGING REPORT ---
CHEST ONE VIEW PORTABLE CLINICAL HISTORY: Shortness of breath. Congestive failure. COMPARISON STUDY: 03/19/2017 FINDINGS: The heart is enlarged. There is mild elevation of the interstitium. The findings likely represent mild congestive failure/fluid overload. An interstitial inflammatory process could appear similar. More focal opacities the left medial lung base, likely represent atelectasis or focal edema. A trace left pleural effusion suspected.[ IMPRESSION: Mild elevation of the interstitium, likely secondary to mild congestive failure/fluid overload. A bilateral interstitial inflammatory process could appear similar. Clinical and radiographic follow-up is recommended Electronically signed by: Calvin Osorio M.D. 03/20/2017 6:31 AM Dictated Date/Time: 03/20/2017 6:29 AM
[2017-03-20] MEDS: CARBIDOPA/LEVODOPA 25/100MG TAB PO SCH ×4 (07:00→20:59)
[2017-03-20] MEDS ORDERED: LEVALBUTEROL/IPRATROPIUM NEB INH PRN (07:00)
--- NOTE | 2017-03-20 07:06 | DIAGNOSTIC IMAGING REPORT ---
CHEST ONE VIEW PORTABLE CLINICAL HISTORY: Congestive failure COMPARISON STUDY: 03/19/2017 FINDINGS: The cardiac images so contours remain stable. There is persistent mild elevation of the interstitium. There is slight improved aeration left lung base. There is no lobar consolidation.[ IMPRESSION: Persistent mild elevation of the interstitium, likely secondary to mild congestive failure/fluid overload. Improving aeration of the left lung base. Electronically signed by: Calvin Osorio M.D. 03/20/2017 7:05 AM Dictated Date/Time: 03/20/2017 7:04 AM
[2017-03-20] MEDS ORDERED: IPRATROPIUM BROMIDE NEB SOLN 0.02% 2.5 ML VIAL INH PRN (07:15)
[2017-03-20] MEDS ORDERED: LEVALBUTEROL 0.63MG/3 ML NEB INH PRN (07:15)
[2017-03-20] MEDS: GABAPENTIN 100 MG CAP PO SCH ×3 (07:16→20:58)
[2017-03-20] MEDS: CHOLECALCIFEROL 1000 INTER.UNIT TAB PO SCH (09:00)
[2017-03-20] MEDS: MAGNESIUM OXIDE 400 MG TAB PO SCH ×3 (09:00→20:57)
[2017-03-20] MEDS: SELEGILINE HCL 5 MG CAP PO SCH ×2 (09:00→14:33)
[2017-03-20] MEDS: LACTOBACILLUS ACIDOPHILUS (FLORANEX) TAB PO SCH (09:00)
[2017-03-20] MEDS: ASPIRIN 81 MG ECTAB PO SCH (09:00)
[2017-03-20] MEDS: HEPARIN SOD 5000 UNIT/0.5 ML CARP SQ SCH ×2 (09:00→20:50)
[2017-03-20] MEDS: SODIUM CHLORIDE 0.65% NA SOLN 45 ML (OCEAN) NAE SCH ×2 (09:00→20:57)
[2017-03-20] MEDS: POTASSIUM CHLORIDE 10 MEQ TABCR PO SCH (09:00)
--- NOTE | 2017-03-20 16:42 | Progress Note ---
Medicine Progress Note Date & Time of Visit: Mar 20, 2017 at 16:26. Subjective Pt was seen and examined Lying in bed with no distress with aid at bedside She had some respiratory distress last night Denies any chest pain, palpitation, dizziness Objective Last 8 Hrs Date Time Temp Pulse Resp B/P (MAP) Pulse Ox O2 Delivery O2 Flow Rate FiO2 03/20/17 15:03 36.6 81 18 165/85 (111) 94 Room Air 03/20/17 12:00 Room Air 03/20/17 11:47 36.4 78 20 176/82 (113) 97 Nasal Cannula 2.0 Physical Exam: General- No acute distress Head- atraumatic Eyes- PERRL, EOMI ENT- oropharynx clear Neck- supple, no JV Lungs- clear to auscultation Heart- regular rhythm Abdomen- normal bowel sounds, soft Extremities- no pretibial edema Neuro- alert, oriented x 3; PERRL, EOMI Skin- warm & dry Assessment & Plan BACTEREMIA Blood cx grew gram negative bacilli, waiting for sensitivity Continue on ceftriaxone until culture and sensitivities available Afebrile and WBC trend back to normal UTI Urine culture grew E. Coli Continue Rocephin Dyspnea CXR showed Persistent mild elevation of the interstitium, likely secondary to mild congestive failure/fluid overload Received Lasix 20mg IVx1 yesterday Will give an additional lasix 20mg ECHO done on 03/04 * The left ventricular cavity is small. * There is moderate concentric left ventricular hypertrophy. * The left ventricle is hyperdynamic. * Ejection Fraction = >70 %. * No regional wall motion abnormalities noted. ABDOMINAL PAIN/DISTENSION: KUB showed gaseous distention of the sigmoid colon Improved after BM CT abd/pelvis showed no acute significant finding PARKINSON DISEASE: has 24 hr care Stable CHRONIC BACK PAIN: Continued on pain medications, but ALLERGIC TO NARCOTICS. GERD: stable on PRN Maalox, Mylanta DVT Px heparin subq CODE STATUS FULL CODE Current Inpatient Medications: Current Inpatient Medications Medications (Trade) Dose Ordered Sig/Payton Route Start Time Stop Time Status Last Admin Dose Admin Ondansetron HCl (Zofran Inj) 4 mg Q6H PRN IV 03/18/17 21:00 04/17/17 20:59 Heparin Sodium (Porcine) (Heparin Sq 5000 Unit/0.5ml) 5,000 unit Q12H SQ 03/19/17 09:00 04/18/17 08:59 03/19/17 21:45 5,000 UNIT Aspirin (Ecotrin Tab) 81 mg DAILY PO 03/19/17 08:00 04/18/17 08:59 03/19/17 07:22 81 MG Carbidopa/Levodopa (Sinemet 25/ 100MG Tab) 1 tab DAILY@0700 PO 03/19/17 07:00 04/18/17 06:59 03/19/17 06:38 1 TAB Carbidopa/Levodopa (Sinemet 25/ 100MG Tab) 2 tab TID@0900,1500,2300 PO 03/18/17 23:00 04/17/17 22:59 03/20/17 14:32 2 TAB Gabapentin (Neurontin Cap) 100 mg TID PO 03/18/17 21:00 04/17/17 20:59 03/20/17 14:32 100 MG Magnesium Oxide (Mag-Ox Tab) 400 mg TID PO 03/18/17 21:00 04/17/17 20:59 03/20/17 14:32 400 MG Sodium Chloride ([place] Nasal [place]) 1 sprays HS ANURAG 03/18/17 21:00 04/17/17 20:59 03/19/17 21:37 1 SPRAYS Sodium Chloride ([place] Nasal [place]) 2 sprays QAM ANURAG 03/19/17 08:00 04/18/17 08:59 03/19/17 07:22 2 SPRAYS Selegiline HCl (Eldepryl Cap) 5 mg BID@0900,1500 PO 03/19/17 09:00 04/18/17 08:59 03/20/17 14:33 5 MG Sertraline HCl (Zoloft Tab) 25 mg HS PO 03/18/17 21:00 04/17/17 20:59 03/19/17 22:05 25 MG Cholecalciferol (Vitamin D Tab) 4,000 inter.unit QAM PO 03/19/17 08:00 04/18/17 08:59 03/19/17 07:23 4,000 INTER.UNIT Potassium Chloride (Klor-Con M10) 10 meq DAILY PO 03/19/17 08:00 04/18/17 08:59 03/19/17 07:23 10 MEQ Ceftriaxone Sodium 1000 mg/ Dextrose 60 ml @ 100 mls/hr DAILY@2100 IV 03/19/17 21:00 03/23/17 20:59 03/19/17 21:33 100 MLS/HR Lactobacillus Acidophilus (Floranex Tab) 4 tab QAM PO 03/19/17 08:00 04/18/17 08:59 03/19/17 07:24 4 TAB Miscellaneous (Iv Fluids Completed) 1 ea PRN PRN N/A 03/18/17 23:30 03/18/18 23:29 Clonidine HCl (Catapres Tab) 0.1 mg Q6H PRN PO 03/19/17 03:45 04/18/17 03:44 03/19/17 22:08 0.1 MG Ioversol (Optiray 320) 111 ml UD PRN IV 03/19/17 13:30 03/23/17 13:29 Ipratropium [place] (Atrovent 0.02% 0.5MG/2.5ML Neb) 0.5 mg Q4H PRN INH 03/20/17 07:15 04/19/17 07:14 Levalbuterol (Xopenex 0.63 Mg/ 3 Ml Neb) 0.63 mg Q4H PRN INH 03/20/17 07:15 04/19/17 07:14
[2017-03-20] MEDS ORDERED: FUROSEMIDE INJ 20 MG in SYRINGE 0 ML IV ONE (17:00)
[2017-03-20] MEDS: CEFTRIAXONE SOD INJ 1,000 MG in DEXTROSE 5% 50ML 50 ML IV SCH (20:51)
[2017-03-20] MEDS: SERTRALINE HCL 50 MG TAB PO SCH (20:58)
[2017-03-21] VITALS: BP 128/69; PULSE 75; TEMP 36.5; O2SAT 96
[2017-03-21 04:00] VITALS: BP 163/86; PULSE 74; TEMP 36.9; O2SAT 90
[2017-03-21] MEDS: ACETAMINOPHEN 500 MG TAB PO SCH ×2 (05:44→13:58)
[2017-03-21 07:06] LABS: HEMATOCRIT 34.6 % (37-47); HEMOGLOBIN 11.6 g/dL (12.0-16.0); MEAN CELL VOLUME 90.8 fL (80-100); MEAN CORPUSCULAR HEMOGLOBIN 30.4 pg (25-34); MEAN CORPUSCULAR HGB CONC 33.5 g/dl (32-36); MEAN PLATELET VOLUME 9.8 fL (7.4-10.4); PLATELET COUNT 358 K/uL (130-400); RED CELL DISTRIBUTION WIDTH CV 14.1 % (11.5-14.5); RED CELL DISTRIBUTION WIDTH SD 46.9 fL (36.4-46.3); WHITE BLOOD COUNT 8.27 K/uL (4.8-10.8)
[2017-03-21 07:36] LABS: CALCIUM 9.2 mg/dl (8.5-10.1); CREATININE 0.7 mg/dl (0.60-1.20); POTASSIUM 3.3 mmol/L (3.5-5.1)
[2017-03-21 07:44] VITALS: BP 166/84; PULSE 74; TEMP 36.4; O2SAT 93
[2017-03-21] MEDS ORDERED: POTASSIUM CHLORIDE 20 MEQ TABCR PO ONE (08:00)
[2017-03-21] MEDS ORDERED: FUROSEMIDE 20 MG TAB PO ONE (08:15)
[2017-03-21] MEDS: HEPARIN SOD 5000 UNIT/0.5 ML CARP SQ SCH (09:00)
[2017-03-21] MEDS: CARBIDOPA/LEVODOPA 25/100MG TAB PO SCH ×3 (09:17→14:25)
[2017-03-21] MEDS: POTASSIUM CHLORIDE 10 MEQ TABCR PO SCH (09:18)
[2017-03-21] MEDS: GABAPENTIN 100 MG CAP PO SCH ×2 (09:18→13:58)
[2017-03-21] MEDS: CLONIDINE HCL 0.1 MG TAB PO PRN (09:18)
[2017-03-21] MEDS: CHOLECALCIFEROL 1000 INTER.UNIT TAB PO SCH (09:18)
[2017-03-21] MEDS: LACTOBACILLUS ACIDOPHILUS (FLORANEX) TAB PO SCH (09:18)
[2017-03-21] MEDS: ASPIRIN 81 MG ECTAB PO SCH (09:18)
[2017-03-21] MEDS: SELEGILINE HCL 5 MG CAP PO SCH ×2 (09:18→14:25)
[2017-03-21] MEDS: MAGNESIUM OXIDE 400 MG TAB PO SCH ×2 (09:18→13:58)
[2017-03-21] MEDS: SODIUM CHLORIDE 0.65% NA SOLN 45 ML (OCEAN) NAE SCH (09:19)
[2017-03-21 11:28] VITALS: BP 150/89; PULSE 78; TEMP 36.5; O2SAT 94
[2017-03-21 13:48] VITALS: BP 150/89; PULSE 78; TEMP 36.5; O2SAT 94
--- NOTE | 2017-03-21 13:53 | Progress Note ---
Medicine Progress Note Date & Time of Visit: Mar 21, 2017 at 13:25. Subjective Pt was seen and examined Lying in bed comfortable with no distress with daughter and granddaughter at bedside Pt said that she feels fine She is saturated very well on RA Denies any chest pain, palpitation, dizziness and SOB Objective Last 8 Hrs Date Time Temp Pulse Resp B/P (MAP) Pulse Ox O2 Delivery O2 Flow Rate FiO2 03/21/17 12:20 Room Air 03/21/17 11:28 36.5 78 18 150/89 (109) 94 Room Air 03/21/17 08:00 Room Air 03/21/17 07:44 36.4 74 18 166/84 (111) 93 Room Air Physical Exam: General- No acute distress Head- atraumatic Eyes- PERRL, EOMI ENT- oropharynx clear Neck- supple, no JV Lungs- clear to auscultation Heart- regular rhythm Abdomen- normal bowel sounds, soft Extremities- no pretibial edema Neuro- alert, oriented, PERRL, EOMI Skin- warm & dry Laboratory Results: Last 24 Hours Test 03/21/17 06:37 White Blood Count 8.27 K/uL Red Blood Count 3.81 M/uL Hemoglobin 11.6 g/dL Hematocrit 34.6 % Mean Corpuscular Volume 90.8 fL Mean Corpuscular Hemoglobin 30.4 pg Mean Corpuscular Hemoglobin Concent 33.5 g/dl RDW Standard Deviation 46.9 fL RDW Coefficient of Variation 14.1 % Platelet Count 358 K/uL Mean Platelet Volume 9.8 fL Sodium Level 133 mmol/L Potassium Level 3.3 mmol/L Chloride Level 102 mmol/L Carbon Dioxide Level 25 mmol/L Anion Gap 6.0 mmol/L Blood Urea Nitrogen 16 mg/dl Creatinine 0.70 mg/dl Est Creatinine Clear Calc Drug Dose 52.4 ml/min Estimated GFR () 89.7 Estimated GFR (Non- 77.4 BUN/Creatinine Ratio 23.2 Random Glucose 99 mg/dl Calcium Level 9.2 mg/dl Assessment & Plan BACTEREMIA Blood cx grew ecoli On IV ceftriaxone Afebrile and WBC trend back to normal Will discharge on levaquin 500mg daily UTI Urine culture grew E. Coli Continue Rocephin Will be discharge on levaquin 500mg daily Dyspnea CXR showed Persistent mild elevation of the interstitium, likely secondary to mild congestive failure/fluid overload Received Lasix 20mg IVx1 yesterday Lasix 20mg PO given today Consider to start on a low dose lasix 2x weekly ECHO done on 03/04 * The left ventricular cavity is small. * There is moderate concentric left ventricular hypertrophy. * The left ventricle is hyperdynamic. * Ejection Fraction = >70 %. * No regional wall motion abnormalities noted. ABDOMINAL PAIN/DISTENSION: KUB showed gaseous distention of the sigmoid colon Improved after BM CT abd/pelvis showed no acute significant finding PARKINSON DISEASE: has 24 hr care Stable CHRONIC BACK PAIN: Continued on pain medications, but ALLERGIC TO NARCOTICS. GERD: stable on PRN Maalox, Mylanta DVT Px heparin subq CODE STATUS FULL CODE DISPOSITION Discharge home today Follow up with Dr. Hernandez on 03/28 @ 11:05 AM Current Inpatient Medications: Current Inpatient Medications Medications (Trade) Dose Ordered Sig/Payton Route Start Time Stop Time Status Last Admin Dose Admin Ondansetron HCl (Zofran Inj) 4 mg Q6H PRN IV 03/18/17 21:00 04/17/17 20:59 Heparin Sodium (Porcine) (Heparin Sq 5000 Unit/0.5ml) 5,000 unit Q12H SQ 03/19/17 09:00 04/18/17 08:59 03/19/17 21:45 5,000 UNIT Aspirin (Ecotrin Tab) 81 mg DAILY PO 03/19/17 08:00 04/18/17 08:59 03/21/17 09:18 81 MG Carbidopa/Levodopa (Sinemet 25/ 100MG Tab) 1 tab DAILY@0700 PO 03/19/17 07:00 04/18/17 06:59 03/21/17 09:17 1 TAB Carbidopa/Levodopa (Sinemet 25/ 100MG Tab) 2 tab TID@0900,1500,2300 PO 03/18/17 23:00 04/17/17 22:59 03/21/17 09:17 2 TAB Gabapentin (Neurontin Cap) 100 mg TID PO 03/18/17 21:00 04/17/17 20:59 03/21/17 09:18 100 MG Magnesium Oxide (Mag-Ox Tab) 400 mg TID PO 03/18/17 21:00 04/17/17 20:59 03/21/17 09:18 400 MG Sodium Chloride ([place] Nasal [place]) 1 sprays HS ANURAG 03/18/17 21:00 04/17/17 20:59 03/19/17 21:37 1 SPRAYS Sodium Chloride ([place] Nasal [place]) 2 sprays QAM ANURAG 03/19/17 08:00 04/18/17 08:59 03/21/17 09:19 2 SPRAYS Selegiline HCl (Eldepryl Cap) 5 mg BID@0900,1500 PO 03/19/17 09:00 04/18/17 08:59 03/21/17 09:18 5 MG Sertraline HCl (Zoloft Tab) 25 mg HS PO 03/18/17 21:00 04/17/17 20:59 03/20/17 20:58 25 MG Cholecalciferol (Vitamin D Tab) 4,000 inter.unit QAM PO 03/19/17 08:00 04/18/17 08:59 03/21/17 09:18 4,000 INTER.UNIT Potassium Chloride (Klor-Con M10) 10 meq DAILY PO 03/19/17 08:00 04/18/17 08:59 03/21/17 09:18 10 MEQ Ceftriaxone Sodium 1000 mg/ Dextrose 60 ml @ 100 mls/hr DAILY@2100 IV 03/19/17 21:00 03/23/17 20:59 03/20/17 20:51 100 MLS/HR Lactobacillus Acidophilus (Floranex Tab) 4 tab QAM PO 03/19/17 08:00 04/18/17 08:59 03/21/17 09:18 4 TAB Miscellaneous (Iv Fluids Completed) 1 ea PRN PRN N/A 03/18/17 23:30 03/18/18 23:29 Clonidine HCl (Catapres Tab) 0.1 mg Q6H PRN PO 03/19/17 03:45 04/18/17 03:44 03/21/17 09:18 0.1 MG Ioversol (Optiray 320) 111 ml UD PRN IV 03/19/17 13:30 03/23/17 13:29 Ipratropium [place] (Atrovent 0.02% 0.5MG/2.5ML Neb) 0.5 mg Q4H PRN INH 03/20/17 07:15 04/19/17 07:14 Levalbuterol (Xopenex 0.63 Mg/ 3 Ml Neb) 0.63 mg Q4H PRN INH 03/20/17 07:15 04/19/17 07:14 Acetaminophen (Tylenol Tab) 1,000 mg Q8H PO 03/21/17 06:00 04/20/17 05:59 03/21/17 05:44 1,000 MG
[2017-03-21] MEDS ORDERED: LEVOFLOXACIN 500 MG TAB PO ONE (13:54)
[2017-03-21] MEDS ORDERED: CEFDINIR 300 MG CAP PO ONE (14:03)
[2017-03-21] MEDS ORDERED: CEFD300C2 PO (14:10)
[2017-03-21] MEDS ORDERED: FURO-85 PO ×2 (14:13→14:28)
--- NOTE | 2017-03-21 14:22 | Discharge Instructions ---
Discharge Instructions Date of Service Mar 21, 2017. Admission Reason for Admission: Generalized Weakness, Parkinson Disease, Uti Discharge Discharge Diagnosis / Problem: Bacteramia, Urinary Track Infection, Weakness Discharge Goals Goal(s): Decrease discomfort, Improve function, Improve disease control Activity Recommendations Activity Limitations: resume your previous activity (gradually increase as tolerated) . Instructions / Follow-Up Instructions / Follow-Up Follow up with your primary care provider Dr. Hernandez on 03/28 @ 11:05 AM Continue physical therapy Fall precaution Complete antibiotic course Lasix to be taken as needed for increase swelling. (take 2 tablets of potassium supplement on the day that you take the Lasix) Check BMP to monitor electrolytes and kidney function Current Hospital Diet Patient's current hospital diet: Regular Diet Discharge Diet Recommended Diet: Regular Diet Pending Studies Studies pending at discharge: no Laboratory Results Hemoglobin A1c Test 02/23/17 14:01 Range/Units Estimated Average Glucose 123 mg/dl Hemoglobin A1c 5.9 H 4.5-5.6 % Lipid Panel Test 02/24/17 07:25 Range/Units Triglycerides Level 176 H 0-150 mg/dl Cholesterol Level 229 H 0-200 mg/dl HDL Cholesterol 88 mg/dl Cholesterol/HDL Ratio 2.6 LDL Cholesterol, Calculated 106 mg/dl Medical Emergencies . Who to Call and When: Medical Emergencies: If at any time you feel your situation is an emergency, please call 911 immediately. . Non-Emergent Contact Non-Emergency issues call your: Primary Care Provider Call Non-Emergent contact if: you have a fever, you have any medication questions . . "Provider Documentation" section prepared by Estiven Pino. . VTE Core Measure Inpt VTE Proph given/why not?: Unfractionated heparin SQ
[2017-03-21] MEDS ORDERED: CEFDINIR 300 MG CAP PO SCH (21:00)
[2017-03-22] MEDS ORDERED: LEVOFLOXACIN 500 MG TAB PO SCH (11:00)
--- NOTE | 2017-03-22 11:09 | EDITING REQUIRED CODING QUERY ---
CONGESTIVE HEART FAILURE To Promote full compliance with coding requirements relating to patient care, physician participation is requested in all cases of director internal communications uncertainty. Please assist us with the following questions. A diagnosis of Congestive Heart Failure is documented in the patient's medical record. To accurately code this diagnosis and to compare patient severity, we ask that you specify the type of heart failure by placing an X within the parenthesis (x). 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 Please check the appropriate box: ( ) Present on Admission ( ) Not Present On Admission ( ) Clinically undetermined Thank you Linda Matthew
--- NOTE | 2017-03-25 21:49 | Discharge Summary ---
Discharge Summary Date of Service Mar 25, 2017. Discharge Summary Admission Date: Mar 21, 2017 at 07:57 Discharge Date: Mar 21, 2017 Discharge Disposition: Home with services Principal Diagnosis: UTI Secondary Diagnoses/Problems: Bacteremia Generalized weakness Chronic Back Pain ABDOMINAL PAIN/DISTENSION Parkinson disease Dyspnea Gerd Procedures: [~ rep ct add3]] CT SCAN OF THE ABDOMEN AND PELVIS WITH IV CONTRAST CLINICAL HISTORY: Left lower quadrant abdominal pain. Distention. COMPARISON STUDY: KUB dated 03/19/2017. Pelvic CT dated 07/21/2011. TECHNIQUE: Following the IV administration of 92 cc of Optiray 320, CT scan of the abdomen and pelvis is performed from the lung bases to the proximal femora. Images are reviewed in the axial, sagittal, and coronal planes. IV contrast was administered without complication. A dose lowering technique was utilized adhering to the principles of ALARA. The Examination is degraded by motion artifact. CT DOSE: 444.11 mGy.cm FINDINGS: Lung bases: The heart is top normal in size and without pericardial effusion. There are small pleural effusions with bibasilar atelectasis. Liver: The contrast-enhanced liver is normal in size, contour, and attenuation. There is no intrahepatic biliary ductal dilatation. The hepatic veins and portal veins are patent. Scattered subcentimeter hepatic hypodensities likely represent cysts but are too small for definitive characterization. Gallbladder: Unremarkable. Spleen: Normal in size and attenuation. Pancreas: Moderately atrophic and grossly unremarkable. Adrenal glands: Unremarkable. Kidneys: The contrast enhanced kidneys demonstrate cortical atrophy and are without hydronephrosis. There is heterogeneous perfusion of the right kidney as compared to the left. A subcentimeter cortical hypodensity in the right kidney likely represents a cyst but is too small for definitive characterization. Abdominal vasculature: The abdominal aorta is normal in course and caliber noting mild to moderate atherosclerotic calcification. Bowel: The sigmoid colon is long and tortuous. The sigmoid colon is under distended. There are scattered colonic diverticula without CT evidence of acute diverticulitis. No bowel obstruction is identified. The appendix is not identified. Peritoneum: There is no intraperitoneal free air. Trace free fluid is seen in the pelvis. Lymphadenopathy: None. Pelvic viscera: The bladder is decompressed and grossly unremarkable. There are calcified uterine fibroids. No adnexal lesion is seen. Skeletal structures: The skeletal structures are osteopenic. Moderate lumbosacral spondylosis is observed. No lytic or blastic lesions are seen. IMPRESSION: 1. Motion degraded examination. 2. There is heterogeneous perfusion of the right kidney as compared to the left. This is nonspecific and could be seen in the setting of pyelonephritis or less likely a vascular insult. Correlation with clinical findings and urinalysis will be required. 3. There is no bowel obstruction. No significant colonic abnormality is identified as questioned by x-ray. 4. There are small pleural effusions with bibasilar atelectasis. 5. There is a small volume of free fluid in the pelvis. 6. Additional findings as above. Electronically signed by: Jamar Sue M.D. 03/19/2017 4:41 PM Dictated Date/Time: 03/19/2017 4:33 PM CHEST ONE VIEW PORTABLE CLINICAL HISTORY: Congestive failure COMPARISON STUDY: 03/19/2017 FINDINGS: The cardiac images so contours remain stable. There is persistent mild elevation of the interstitium. There is slight improved aeration left lung base. There is no lobar consolidation.[ IMPRESSION: Persistent mild elevation of the interstitium, likely secondary to mild congestive failure/fluid overload. Improving aeration of the left lung base. KUB CLINICAL HISTORY: Generalized abdominal pain. FINDINGS: 2 AP, portable, supine abdominal radiographs are correlated with radiographs of lumbar spine dated 06/30/2013. There is no evidence of bowel obstruction. No evidence of intraperitoneal free air is seen on these supine views. There are no abnormal abdominal calcifications. There is gaseous distention of the sigmoid colon in the right lower quadrant which measures up to 6.5 cm. Mucosal thickening/edema is suspected. The skeletal structures are osteopenic. Lumbar sacral spondylosis and scoliosis are observed. IMPRESSION: 1. There is no radiographic evidence of bowel obstruction. 2. There is gaseous distention of the sigmoid colon, with mild distention of the upstream colon. Mucosal edema is suggested in the sigmoid region. This could represent a nonspecific colitis, or less likely could potentially be related to sigmoid volvulus. Clinical correlation will be required. Consider short-term radiographic follow-up. Electronically signed by: Jamar Sue M.D. 03/19/2017 11:06 AM Dictated Date/Time: 03/19/2017 11:02 AM Medication Reconciliation New Medications: Cefdinir (Omnicef) 300 Mg Cap 1 CAP PO BID for 10 Days, #20 CAP Furosemide (Lasix) 20 Mg Tab 20 MG PO UD PRN for swelling for 30 Days, TAB only take 1 tab twice a week as needed. (Sunday and Sunday) Continued Medications: Aspirin (Aspirin EC Low Dose) 81 Mg Ectab 81 MG PO DAILY Carbidopa/Levodopa (Sinemet 25MG/100MG) Tab 2 TABS PO TID, TAB 0900, 1500 & 2300 Carbidopa/Levodopa (Sinemet 25MG/100MG) Tab 1 TAB PO QAM, TAB Cholecalciferol (D 2000) 2,000 Unit Tab 4000 PO QAM Gabapentin (Neurontin) 100 Mg Cap 100 MG PO TID, CAP TAKE 100MG THREE TIMES A DAY AT 0900,1500,2300 Magnesium (Magnesium 250 mg) 1 Tab Tab 250 MG PO BID TAKE 250MG TWICE A DAY AT 0900 AND 2300 Potassium Chloride (K-Tab) 8 Meq Tab 8 MEQ PO DAILY Probiotic Product (Probiotic) 1 Cap Cap 1 CAP PO QAM Saline (Saline Nasal [place]) 0.65 % Spr 2 SPRAYS ANURAG QAM Saline ([place]) 0.65 % Spr 1 SPRY ANURAG HS, #50 ML 2 Refills Selegiline Hcl (Eldepryl) 5 Mg Cap 5 MG PO BID, CAP TAKE 5MG TWICE A DAY AT 0900 AND 1500 Sertraline (Zoloft) 25 Mg Tab 25 MG PO HS, TAB Valerian (Valeriana Officinali (Valerian Root) 450 Mg Cap 450 MG PO QPM@2300 Admission Information HPI (per Admitting provider): CHIEF COMPLAINT: Vomiting about 4 times since midnight, fever for the last 3 days and generalized weakness and inability to stand today. HISTORY OF PRESENT COMPLAINT: She is an 86-year-old female with significant past medical history, including Parkinson's disease, requires help for almost every activity, urinary incontinence, GERD, hyperlipidemia, history of meningioma and hypothyroidism; apparently, was noted to have vomiting x4 since midnight yesterday. The caregiver also noticed that she has been unsteady on her feet and getting generally more weak. She also noticed that she has more incontinence of urine and the urine smelt very bad. She also had fever, less than 100 degrees Fahrenheit for the last 3 days. She did have chills this morning and hands were cold and bluish color. She was taken to the Emergency Room. In the ER, she did have fever of 38 degrees Celsius and also her blood pressure was noted to be on the higher side of normal and the looked grossly infected. From that point, she was given ceftriaxone and was advised for admission. Physical Exam (per Admitting): PHYSICAL EXAMINATION: GENERAL: On examination in the Emergency Room, she was not having any acute distress. In fact, she could not tell why is she here today. VITAL SIGNS: Temperature 38.0, pulse was 83, blood pressure 146/78, saturation 98% on room air. HEENT: Unremarkable. She looked flushed. NECK: Supple. No JVD, no bruit. CHEST: Clear to auscultate bilaterally. HEART: S1, S2 regular. ABDOMEN: Soft, mildly tender in the hypogastrium, no organomegaly. Bowel sounds present. EXTREMITIES: No edema, chronic skin changes. She does have a hematoma on the upper medial aspect of the left leg and her right upper leg is bandaged due to minor injuries. CENTRAL NERVOUS SYSTEM: She was alert, awake, oriented. She was generally weak, but did not have any focal neuro deficit. Hospital Course BACTEREMIA Blood cx grew ecoli On IV ceftriaxone Afebrile and WBC trend back to normal Will discharge on levaquin 500mg daily UTI Urine culture grew E. Coli Continue Rocephin Will be discharge on levaquin 500mg daily Dyspnea CXR showed Persistent mild elevation of the interstitium, likely secondary to mild congestive failure/fluid overload Received Lasix 20mg IVx1 yesterday Lasix 20mg PO given today Consider to start on a low dose lasix 2x weekly ECHO done on 03/04 * The left ventricular cavity is small. * There is moderate concentric left ventricular hypertrophy. * The left ventricle is hyperdynamic. * Ejection Fraction = >70 %. * No regional wall motion abnormalities noted. ABDOMINAL PAIN/DISTENSION: KUB showed gaseous distention of the sigmoid colon Improved after BM CT abd/pelvis showed no acute significant finding PARKINSON DISEASE: has 24 hr care Stable CHRONIC BACK PAIN: Continued on pain medications, but ALLERGIC TO NARCOTICS. GERD: stable on PRN Maalox, Mylanta DVT Px heparin subq CODE STATUS FULL CODE DISPOSITION Discharge home today Follow up with Dr. Hernandez on 03/28 @ 11:05 AM Total time spent on discharge = 35 minutes This includes examination of the patient, discharge planning, medication reconciliation, and communication with other providers. Discharge Instructions Discharge Instructions Date of Service Mar 21, 2017. Admission Reason for Admission: Generalized Weakness, Parkinson Disease, Uti Discharge Discharge Diagnosis / Problem: Bacteramia, Urinary Track Infection, Weakness Discharge Goals Goal(s): Decrease discomfort, Improve function, Improve disease control Activity Recommendations Activity Limitations: resume your previous activity (gradually increase as tolerated) . Instructions / Follow-Up Instructions / Follow-Up Follow up with your primary care provider Dr. Hernandez on 03/28 @ 11:05 AM Continue physical therapy Fall precaution Complete antibiotic course Lasix to be taken as needed for increase swelling. (take 2 tablets of potassium supplement on the day that you take the Lasix) Check BMP to monitor electrolytes and kidney function Current Hospital Diet Patient's current hospital diet: Regular Diet Discharge Diet Recommended Diet: Regular Diet Pending Studies Studies pending at discharge: no Laboratory Results Hemoglobin A1c Test 02/23/17 14:01 Range/Units Estimated Average Glucose 123 mg/dl Hemoglobin A1c 5.9 H 4.5-5.6 % Lipid Panel Test 02/24/17 07:25 Range/Units Triglycerides Level 176 H 0-150 mg/dl Cholesterol Level 229 H 0-200 mg/dl HDL Cholesterol 88 mg/dl Cholesterol/HDL Ratio 2.6 LDL Cholesterol, Calculated 106 mg/dl Medical Emergencies . Who to Call and When: Medical Emergencies: If at any time you feel your situation is an emergency, please call 911 immediately. . Non-Emergent Contact Non-Emergency issues call your: Primary Care Provider Call Non-Emergent contact if: you have a fever, you have any medication questions . . "Provider Documentation" section prepared by Estiven Pino. . VTE Core Measure Inpt VTE Proph given/why not?: Unfractionated heparin SQ Additional Copies To Paulo Hernandez D.O.
== END 2017-03-21 16:16 | disposition home or self-care (01) | DRG 871 ==
LOC: C.EDB 19:20 → C.MS4W 20:56 → ENRESERV 21:20 → C.MED 03-20 00:12 → OBSVTOIN 03-21 07:57
PROVIDERS: ADMIT Internal Medicine; ATTEND Internal Medicine
DX: R78.81 Bacteremia (principal); I50.33 Acute on chronic diastolic (congestive) heart failure; N39.0 Urinary tract infection, site not specified; B96.20 Unspecified Escherichia coli [E. coli] as the cause of diseases classified elsewhere; R06.00 Dyspnea, unspecified; G20 Parkinson's disease; D32.0 Benign neoplasm of cerebral meninges; M51.36 Other intervertebral disc degeneration, lumbar region; K21.9 Gastro-esophageal reflux disease without esophagitis; Z51.81 Encounter for therapeutic drug level monitoring; Z79.899 Other long term (current) drug therapy; Z79.82 Long term (current) use of aspirin; Z91.81 History of falling; Z87.891 Personal history of nicotine dependence; Z82.49 Family history of ischemic heart disease and other diseases of the circulatory system

== ENCOUNTER 2017-06-11 15:08 | Observation (INO) | payer MEDICARE, OTHER ==
[~2017-06-11] VITALS: Ht 162.6 cm; Wt 60.9 kg
[~2017-06-11 15:08] MED LIST changes: -BIOT1TAB5 PO; +CHOL1TAB76 PO; -CHOLDRO4 PO; -CLC/300 PO; +FURO-85 PO; +GABA100C13 PO; -GABA1CAP PO; +MAGN250T3 PO; -MAGN400T5 PO; +MISCCAP80 PO; +SALI0.657 NAE; +SALI1SPR3 NAE; +SERT25TA PO; -SERT50TA PO; +VALE450C4 PO
[2017-06-11] MEDS ORDERED: SODIUM CHLORIDE 0.9% 1000ML 1,000 ML IV SCH (15:40)
[2017-06-11 15:58] LABS: INR 0.9 (0.9-1.1); PTT PATIENT 29.7 SECONDS (21.0-31.0)
[2017-06-11 15:59] LABS: BASO % 0.3 %; BASO ABS # 0.02 K/uL (0-0.2); EOS % 0.6 %; EOS ABS # 0.05 K/uL (0-0.5); HEMATOCRIT 46.3 % (37-47); HEMOGLOBIN 15.1 g/dL (12.0-16.0); IG# 0.02 K/uL (0.00-0.02); LYMPH ABS # 1.26 K/uL (1.2-3.4); MEAN CELL VOLUME 91.5 fL (80-100); MEAN CORPUSCULAR HEMOGLOBIN 29.8 pg (25-34); MEAN CORPUSCULAR HGB CONC 32.6 g/dl (32-36); MONO % 9.7 %; MONO ABS # 0.76 K/uL (0.11-0.59); NEUT % 73.1 %; NEUT ABS # 5.75 K/uL (1.4-6.5); PLATELET COUNT 536 K/uL (130-400); RED CELL DISTRIBUTION WIDTH CV 14.5 % (11.5-14.5); RED CELL DISTRIBUTION WIDTH SD 48.2 fL (36.4-46.3); WHITE BLOOD COUNT 7.86 K/uL (4.8-10.8)
--- NOTE | 2017-06-11 16:01 | DIAGNOSTIC IMAGING REPORT ---
CT HEAD WITHOUT CONTRAST (CT) CLINICAL HISTORY: Stroke COMPARISON STUDY: 02/23/2017 TECHNIQUE: Axial CT of the brain is performed from the vertex to the skull base. IV contrast was not administered for this examination. A dose lowering technique was utilized adhering to the principles of ALARA. CT DOSE: 537.48 mGy.cm FINDINGS: There is a stable 2 cm extra-axial left posterior fossa mass abutting the petrous bone. This likely represents a meningioma. There is no CT evidence of acute cortical infarction. There is no midline shift. There is no acute hemorrhage. There are moderate white matter hypodensities likely on a small vessel basis. There is no evidence of pathologic ventricular dilatation. There is no evidence of acute sinusitis IMPRESSION: 1. No acute intracranial findings 2. Stable 2 cm left cerebellar hemisphere extra-axial mass, likely representing a meningioma Electronically signed by: Calvin Osorio M.D. 06/11/2017 4:00 PM Dictated Date/Time: 06/11/2017 3:58 PM
--- NOTE | 2017-06-11 16:07 | DIAGNOSTIC IMAGING REPORT ---
CHEST ONE VIEW PORTABLE CLINICAL HISTORY: 86 years-old Female presenting with Stroke. TECHNIQUE: Portable upright AP view of the chest was obtained. COMPARISON: 03/20/2017. FINDINGS: Atherosclerosis of aortic arch. Cardiac silhouette mildly enlarged. Mildly low lung volumes with hypoventilatory changes. No focal opacity. No large effusion or pneumothorax. Degenerative changes of the thoracic spine. Upper abdomen normal. IMPRESSION: 1. No acute cardiopulmonary disease. Electronically signed by: Christopher Garcia M.D. 06/11/2017 4:06 PM Dictated Date/Time: 06/11/2017 4:05 PM
[2017-06-11 16:28] LABS: BLOOD UREA NITROGEN 24 mg/dl (7-18); CARBON DIOXIDE 29 mmol/L (21-32); CKMB 3.3 ng/ml (0.5-3.6); CREATININE 1.04 mg/dl (0.60-1.20); GLUCOSE 98 mg/dl (70-99); POTASSIUM 3.8 mmol/L (3.5-5.1); SODIUM 137 mmol/L (136-145)
[2017-06-11] MEDS ORDERED: MULT-920 PO (16:59)
[2017-06-11] MEDS ORDERED: VITAMINB PO (17:05)
[2017-06-11] MEDS ORDERED: CYAN500T PO (17:06)
[2017-06-11] MEDS ORDERED: ASPIRIN 81 MG CHEW PO STA (17:07)
[2017-06-11] MEDS ORDERED: ACET-1256 PO (17:08)
[2017-06-11] MEDS ORDERED: CYCL0.052 OP (17:19)
--- NOTE | 2017-06-11 17:19 | EMERGENCY ROOM VISIT NOTE ---
History Report prepared by Brook: Nicole Velasquez Under the Supervision of: Dr. Nito Peguero M.D. First contact with patient: 15:32 Chief Complaint: STROKE SYMPTOMS Stated Complaint: SPEECH NOT WELL, NUMB ALL OVER, ISSUES WALKING History of Present Illness The patient is an 86 year old female who presents to the Emergency Room with complaints of persistent weakness starting 1 hour ago. The patient's caregiver was walking the patient to the car when she suddenly started feeling weak. She complains of numbness to the left side of her face. She also seemed to have some changes to her speech which have resolved. She has been eating well. She has a history of Parkinson's disease. She often complains of numbness. She does not have any history of stroke. She is on baby aspirin. She is currently on Cipro for UTI. Source of History: patient, family, caregiver Onset: 1 hour ago Position: other (generalized) Quality: other (weakness) Timing: other (persistent) Associated Symptoms: + numbness Note: Pt had speech changes. Review of Systems See HPI for pertinent positives & negatives. A total of 10 systems reviewed and were otherwise negative. 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), lumbar (3) Dyslipidemia (4) Generalized weakness (5) GERD (gastroesophageal reflux disease) (6) Parkinson disease (7) Parkinson's disease (8) Right sided weakness (9) UTI (urinary tract infection) Surgical Problems: (1) H/O elbow surgery (2) History of cataract surgery (3) S/P hernia repair (4) S/P knee replacement (5) S/P tonsillectomy and adenoidectomy Family History FH: cancer FH: heart disease FH: hypertension FH: lung disease Social History Smoking Status: Never Smoker Alcohol Use: none Drug Use: none Marital Status: Housing Status: lives with family Occupation Status: retired Current/Historical Medications Scheduled Aspirin (Aspirin EC Low Dose), 81 MG PO DAILY Carbidopa/Levodopa (Sinemet 25MG/100MG), 2 TABS PO TID Carbidopa/Levodopa (Sinemet 25MG/100MG), 1 TAB PO QAM Cholecalciferol (D 2000), 2,000 UNITS PO QAM Ciprofloxacin Tab (Cipro), 250 MG PO BID Cyanocobalamin (Vitamin B-12), 500 MCG PO DAILY Cyclosporine (Ophth) (Restasis), 1 DROPS OP BID Gabapentin (Neurontin), 100 MG PO TID Magnesium (Magnesium 250 mg), 250 MG PO BID Multiple Vitamins W/ Minerals (Airborne), 1 TAB PO QAM Potassium Chloride (K-Tab), 8 MEQ PO DAILY Probiotic Product (Probiotic), 1 CAP PO QPM Selegiline Hcl (Eldepryl), 5 MG PO BID Sertraline (Zoloft), 25 MG PO HS Valerian (Valeriana Officinali (Valerian Root), 450 MG PO QPM@2300 Scheduled PRN Acetaminophen (Tylenol), 1,000 MG PO Q6H PRN for Pain or Fever Saline ([place]), 2 SPRY ANURAG TID PRN for CONGESTION Allergies Uncoded Allergies: NARCOTICS (Adverse Reaction, Unknown, DIZZY, , 06/25/15) Physical Exam Vital Signs Date Time Temp Pulse Resp B/P (MAP) Pulse Ox O2 Delivery O2 Flow Rate FiO2 06/11/17 16:28 72 06/11/17 16:09 72 18 156/104 98 Room Air 06/11/17 16:01 98 Room Air 06/11/17 15:28 74 18 152/87 98 Room Air Physical Exam GENERAL: Awake, alert, well-appearing, in no acute distress HENT: Normocephalic, atraumatic. Oropharynx unremarkable. EYES: Normal conjunctiva. Sclera non-icteric. NECK: Supple. No nuchal rigidity. FROM. No JVD. RESPIRATORY: Clear to auscultation. CARDIAC: Regular rate, normal rhythm. Extremities warm and well perfused. Pulses equal. ABDOMEN: Soft, non-distended. No tenderness to palpation. No rebound or guarding. No masses. RECTAL: Deferred. MUSCULOSKELETAL: Chest examination reveals no tenderness. The back is symmetrical on inspection without obvious abnormality. There is no CVA tenderness to palpation. No joint edema. LOWER EXTREMITIES: Calves are equal size bilaterally and non-tender. No edema. No discoloration. NEURO: Normal sensorium. No sensory or motor deficits noted. SKIN: No rash or jaundice noted. Medical Decision & Procedures ER Provider Diagnostic Interpretation: X-ray results as stated below per interpretation by me and the radiologist. Radiology results as stated below per my review and radiologist interpretation: CHEST ONE VIEW PORTABLE CLINICAL HISTORY: 86 years-old Female presenting with Stroke. TECHNIQUE: Portable upright AP view of the chest was obtained. COMPARISON: 03/20/2017. FINDINGS: Atherosclerosis of aortic arch. Cardiac silhouette mildly enlarged. Mildly low lung volumes with hypoventilatory changes. No focal opacity. No large effusion or pneumothorax. Degenerative changes of the thoracic spine. Upper abdomen normal. IMPRESSION: 1. No acute cardiopulmonary disease. Electronically signed by: Christopher Garcia M.D. 06/11/2017 4:06 PM Dictated Date/Time: 06/11/2017 4:[address] HEAD WITHOUT CONTRAST (CT) CLINICAL HISTORY: Stroke COMPARISON STUDY: 02/23/2017 TECHNIQUE: Axial CT of the brain is performed from the vertex to the skull base. IV contrast was not administered for this examination. A dose lowering technique was utilized adhering to the principles of ALARA. CT DOSE: 537.48 mGy.cm FINDINGS: There is a stable 2 cm extra-axial left posterior fossa mass abutting the petrous bone. This likely represents a meningioma. There is no CT evidence of acute cortical infarction. There is no midline shift. There is no acute hemorrhage. There are moderate white matter hypodensities likely on a small vessel basis. There is no evidence of pathologic ventricular dilatation. There is no evidence of acute sinusitis IMPRESSION: 1. No acute intracranial findings 2. Stable 2 cm left cerebellar hemisphere extra-axial mass, likely representing a meningioma Electronically signed by: Calvin Osorio M.D. 06/11/2017 4:00 PM Dictated Date/Time: 06/11/2017 3:58 PM Laboratory Results 06/11/17 15:40 Red Blood Count 5.06, Mean Corpuscular Volume 91.5, Mean Corpuscular Hemoglobin 29.8, Mean Corpuscular Hemoglobin Concent 32.6, Mean Platelet Volume 9.0, Neutrophils (%) (Auto) 73.1, Lymphocytes (%) (Auto) 16.0, Monocytes (%) (Auto) 9.7, Eosinophils (%) (Auto) 0.6, Basophils (%) (Auto) 0.3, Neutrophils # (Auto) 5.75, Lymphocytes # (Auto) 1.26, Monocytes # (Auto) 0.76, Eosinophils # (Auto) 0.05, Basophils # (Auto) 0.02 06/11/17 15:40 Test 3/26/18 15:40 White Blood Count 7.86 K/uL (4.8-10.8) Red Blood Count 5.06 M/uL (4.2-5.4) Hemoglobin 15.1 g/dL (12.0-16.0) Hematocrit 46.3 % (37-47) Mean Corpuscular Volume 91.5 fL (80-100) Mean Corpuscular Hemoglobin 29.8 pg (25-34) Mean Corpuscular Hemoglobin Concent 32.6 g/dl (32-36) Platelet Count 536 K/uL (130-400) Mean Platelet Volume 9.0 fL (7.4-10.4) Neutrophils (%) (Auto) 73.1 % Lymphocytes (%) (Auto) 16.0 % Monocytes (%) (Auto) 9.7 % Eosinophils (%) (Auto) 0.6 % Basophils (%) (Auto) 0.3 % Neutrophils # (Auto) 5.75 K/uL (1.4-6.5) Lymphocytes # (Auto) 1.26 K/uL (1.2-3.4) Monocytes # (Auto) 0.76 K/uL (0.11-0.59) Eosinophils # (Auto) 0.05 K/uL (0-0.5) Basophils # (Auto) 0.02 K/uL (0-0.2) RDW Standard Deviation 48.2 fL (36.4-46.3) RDW Coefficient of Variation 14.5 % (11.5-14.5) Immature Granulocyte % (Auto) 0.3 % Immature Granulocyte # (Auto) 0.02 K/uL (0.00-0.02) Prothrombin Time 9.9 SECONDS (9.0-12.0) Prothromb Time International Ratio 0.9 (0.9-1.1) Activated Partial Thromboplast Time 29.7 SECONDS (21.0-31.0) Partial Thromboplastin Ratio 1.1 Anion Gap 6.0 mmol/L (3-11) Est Creatinine Clear Calc Drug Dose 32.3 ml/min Estimated GFR () 55.6 Estimated GFR (Non- 47.9 BUN/Creatinine Ratio 23.0 (10-20) Calcium Level 9.0 mg/dl (8.5-10.1) Magnesium Level 2.3 mg/dl (1.8-2.4) Total Creatine Kinase 143 U/L (26-192) Creatine Kinase MB 3.3 ng/ml (0.5-3.6) Creatine Kinase MB Ratio 2.3 (0-3.0) Troponin I < 0.015 ng/ml (0-0.045) Chemistry Specimen Hemolysis Labs reviewed by ED physician. Medications Administered Medications (Trade) Dose Ordered Sig/[place] Route Start Time Stop Time Status Last Admin Dose Admin Sodium Chloride 1,000 ml @ 50 mls/hr Q20H IV 06/11/17 15:40 07/11/17 15:39 06/11/17 16:11 50 MLS/HR ECG Per My Interpretation Indication: weakness Rate (beats per minute): 70 Rhythm: normal sinus Findings: other (old inferior ischemia, no ST elevation or depression) ED Course 1531: Past medical records reviewed. The patient was evaluated in room A1. A complete history and physical examination was performed. 1540: NSS 1000 ml @ 50 mls/hr IV. 1655: Upon reexamination the patient is stable. I discussed results and treatment plan with the patient and family. They verbalize agreement and understanding. The patient will be evaluated for further management. 1706: I discussed the patient's case with MADONNA Quiroga hospitalist. She has agreed to evaluate the patient for further management and care. 1707: Aspirin 324 mg PO. Medical Decision Differential diagnosis: Etiologies such as metabolic, infection, hypo/hyperglycemia, electrolyte abnormalities, cardiac sources, intracerebral event, toxicologic, neurologic, as well as others were entertained. This is an 86-year-old female who presents emergency department over concerns with the patient was slurring speech and had left-sided weakness. On my examination the patient appears to be at her baseline as confirmed by her daughter as well as her computator. Patient was immediately sent for CAT scan of the head which was also found to be normal. The patient has a normal CBC normal renal profile normal liver profile. She was given normal saline bolus while here in the emergency department. I did discuss the case with the hospitalist service who agreed to admit patient. Medication Reconcilliation Current Medication List: was personally reviewed by me Blood Pressure Screening Patient's blood pressure: Elevated blood pressure Consults Time Called: [phone] Consulting Physician: MADONNA Quirogaisinger hospitalist Returned Call: [phone] I discussed the patient's case with her. She has agreed to evaluate the patient for further management and care. Impression Primary Impression: TIA (transient ischemic attack) Scribe Attestation The scribe's documentation has been prepared under my direction and personally reviewed by me in its entirety. I confirm that the note above accurately reflects all work, treatment, procedures, and medical decision making performed by me. Departure Information Dispostion Being Evaluated By Hospitalist Referrals Paulo Hernandez D.OJose (PCP) Patient Instructions My [facility] Problem Qualifiers Primary Impression: TIA (transient ischemic attack) Transient cerebral ischemia type: unspecified Qualified Codes: G45.9 - Transient cerebral ischemic attack, unspecified
[2017-06-11] MEDS ORDERED: CIPR1TAB11 PO (17:27)
[2017-06-11] MEDS ORDERED: ARGINEX PO (17:32)
[2017-06-11] MEDS ORDERED: ONDANSETRON INJ 2 MG/ML 2 ML VIAL IV PRN (18:00)
[2017-06-11] MEDS ORDERED: ACETAMINOPHEN 325 MG TAB PO PRN (18:00)
[2017-06-11] MEDS ORDERED: CLOPIDOGREL BISULFATE 75 MG TAB PO SCH (18:15)
[2017-06-11] MEDS ORDERED: OPTIRAY 320 IV PRN (18:15)
[2017-06-11] MEDS ORDERED: PHARMACIST DISCHARGE MED REC CONSULT PRN (18:15)
[2017-06-11] MEDS ORDERED: CARBIDOPA/LEVODOPA 25/100MG TAB PO ONE (18:15)
[2017-06-11] MEDS ORDERED: ASPIRIN 81 MG ECTAB PO STA (18:23)
--- NOTE | 2017-06-11 18:35 | DIAGNOSTIC IMAGING REPORT ---
CT HEAD ANGIO WITH CONTRAST CLINICAL HISTORY: Stroke like symptoms TECHNIQUE: CT angiography of the head was performed in a dynamic helical fashion during intravenous administration of 117 cc of Optiray 320. A dose lowering technique was utilized adhering to the principles of ALARA. MIP imaging was performed CT DOSE: 637.62 mGy.cm COMPARISON STUDY: Noncontrast head CT dated 06/11/2017 FINDINGS: There is a mildly enhancing 2 cm left cerebellar extra-axial mass abutting the petrous bone. This likely represents a meningioma. There are no major intracranial branch occlusions. There are no lesion suspicious for aneurysm. There are no findings to indicate dural venous sinus thrombosis. IMPRESSION: 1. 2 cm left cerebellar extra-axial mass, likely representing a meningioma 2. Otherwise unremarkable CT angiography of the brain. Electronically signed by: Calvin Osorio M.D. 06/11/2017 6:34 PM Dictated Date/Time: 06/11/2017 6:31 PM
--- NOTE | 2017-06-11 18:40 | DIAGNOSTIC IMAGING REPORT ---
CT NECK ANGIO WITH CONTRAST CLINICAL HISTORY: Stroke like symptoms COMPARISON STUDY: No previous studies for comparison. TECHNIQUE: CT angiography was performed from the aortic arch to the skull base. MIP imaging was performed. The patient was scanned in a dynamic helical fashion during intravenous administration of 117 cc of Optiray 320. A dose lowering technique was utilized adhering to the principles of ALARA. CT DOSE: Technique: CT angiogram of the carotid and vertebral arteries was obtained using intravenous contrast and 3-D reconstruction. NASCET criteria was utilized. Findings: The right carotid revealed no evidence of aneurysm and no evidence of dissection. There is no evidence of hemodynamic significant stenosis. There is medial deviation of the high right cervical internal carotid which is in the midline. The left carotid revealed no evidence of hemodynamic significant stenosis. There is no evidence of aneurysm. There is no evidence of dissection. There is no evidence of hemodynamically significant vertebral stenosis. There is no evidence of vertebral dissection. IMPRESSION: No evidence of hemodynamically significant carotid or vertebral artery stenosis. No evidence of dissection. Electronically signed by: Calvin Osorio M.D. 06/11/2017 6:38 PM Dictated Date/Time: 06/11/2017 6:36 PM
[2017-06-11 18:59] VITALS: BP 184/103; PULSE 72; TEMP 36.7; O2SAT 98; BMI 24.3
[2017-06-11] MEDS ORDERED: IV FLUIDS COMPLETED PRN (19:15)
--- NOTE | 2017-06-11 19:47 | History and Physical ---
History & Physical Date & Time of Service: Jun 11, 2017 ~ 17:30 Chief Complaint: Slurred speech, numbness Primary Care Physician: Paulo Hernandez D.O. History of Present Illness 86-year-old female who presents to the ER with a chief complaint of slurred speech and numbness. Patient's daughters at the bedside who provides some history. She reports that she noted her mother's speech to be somewhat slurred last evening, however she thought that maybe the patient was just tired. Patient reports that also last night she noticed numbness over her entire body, felt like the left side was more numb than the right. She was able to go to sleep and slept well throughout the night. When she woke up this morning the numbness persisted. She reports increased difficulty with ambulating feeling like her right leg was weaker than the left. Patient does have Parkinson's, therefore symptoms are difficult to differentiate. Patient denies chest pain shortness of breath. No lightheadedness, dizziness, diaphoresis or syncopal events. She is currently being treated for urinary tract infection. Patient reports episodes of hot flashes, flushing, and chills which have been going on for the past several months. She denies abdominal pain, nausea, vomiting, and diarrhea. In the ED, head CT is negative for acute findings. Labs are unremarkable. Past Medical/Surgical History Medical Problems: (1) CPA meningioma Status: Chronic (2) DJD (degenerative joint disease), lumbar Status: Chronic (3) Dyslipidemia Status: Chronic (4) GERD (gastroesophageal reflux disease) Status: Chronic (5) Parkinson's disease Status: Chronic Surgical Problems: (1) H/O elbow surgery Status: Chronic (2) History of cataract surgery Status: Chronic (3) S/P hernia repair Status: Chronic (4) S/P knee replacement Status: Chronic (5) S/P tonsillectomy and adenoidectomy Status: Chronic Family History Noncontributory secondary to patient's advanced age Social History Smoking Status: Former Smoker Alcohol Use: occasionally Immunizations History of Influenza Vaccine: Yes Influenza Vaccine Date: Dec 25, 2016 History of Pneumococcal: Yes Pneumococcal Date: Dec 25, 2016 Allergies Uncoded Allergies: NARCOTICS (Adverse Reaction, Unknown, DIZZY, , 06/25/15) Home Medications Scheduled Aspirin (Aspirin EC Low Dose), 81 MG PO DAILY Carbidopa/Levodopa (Sinemet 25MG/100MG), 2 TABS PO TID Carbidopa/Levodopa (Sinemet 25MG/100MG), 1 TAB PO QAM Cholecalciferol (D 2000), 2,000 UNITS PO QAM Ciprofloxacin Tab (Cipro), 250 MG PO BID Cyanocobalamin (Vitamin B-12), 500 MCG PO DAILY Cyclosporine (Ophth) (Restasis), 1 DROPS OP BID Gabapentin (Neurontin), 100 MG PO TID Magnesium (Magnesium 250 mg), 250 MG PO BID Multiple Vitamins W/ Minerals (Airborne), 1 TAB PO QAM Potassium Chloride (K-Tab), 8 MEQ PO DAILY Probiotic Product (Probiotic), 1 CAP PO QPM Selegiline Hcl (Eldepryl), 5 MG PO BID Sertraline (Zoloft), 25 MG PO HS Valerian (Valeriana Officinali (Valerian Root), 450 MG PO QPM@2300 [Arginex], 1 TAB PO TIDM Scheduled PRN Acetaminophen (Tylenol), 1,000 MG PO Q6H PRN for Pain or Fever Saline ([place]), 2 SPRY ANURAG TID PRN for CONGESTION Review of Systems ROS per HPI, all other systems reviewed and negative Physical Exam Vital Signs Date Time Temp Pulse Resp B/P (MAP) Pulse Ox O2 Delivery O2 Flow Rate FiO2 06/11/17 19:03 76 18 186/99 99 Room Air 06/11/17 18:59 36.7 72 18 184/103 06/11/17 18:22 36.7 72 18 184/103 99 Room Air 06/11/17 16:28 72 06/11/17 16:09 72 18 156/104 98 Room Air 06/11/17 16:01 98 Room Air 06/11/17 15:28 74 18 152/87 98 Room Air General Appearance: WD/WN, no apparent distress, + pertinent finding (Flat affect) Head: normocephalic, atraumatic Eyes: normal inspection, PERRL, EOMI, sclerae normal ENT: hearing grossly normal, + pertinent finding (Mucous membranes moist) Neck: supple, no JVD, trachea midline Respiratory/Chest: lungs clear, normal breath sounds, no respiratory distress Cardiovascular: regular rate, rhythm, no edema, normal peripheral pulses Abdomen/GI: normal bowel sounds, non tender, soft, no organomegaly Extremities/Musculoskelatal: normal inspection, no calf tenderness, normal capillary refill Neurologic/Psych: alert, oriented x 3, + pertinent finding (Left hand grasp slightly weaker than right, BLLE weak equally; neuro exam difficult given patient's history of Parkinson's) Skin: warm/dry, + pertinent finding (Flushing noted to the head and upper chest ; chronic venous changes BLLE) Diagnostics Laboratory Results Results Past 24 Hours Test 06/11/17 15:40 Range/Units White Blood Count 7.86 4.8-10.8 K/uL Red Blood Count 5.06 4.2-5.4 M/uL Hemoglobin 15.1 12.0-16.0 g/dL Hematocrit 46.3 37-47 % Mean Corpuscular Volume 91.5 80-100 fL Mean Corpuscular Hemoglobin 29.8 25-34 pg Mean Corpuscular Hemoglobin Concent 32.6 32-36 g/dl Platelet Count 536 130-400 K/uL Mean Platelet Volume 9.0 7.4-10.4 fL Neutrophils (%) (Auto) 73.1 % Lymphocytes (%) (Auto) 16.0 % Monocytes (%) (Auto) 9.7 % Eosinophils (%) (Auto) 0.6 % Basophils (%) (Auto) 0.3 % Neutrophils # (Auto) 5.75 1.4-6.5 K/uL Lymphocytes # (Auto) 1.26 1.2-3.4 K/uL Monocytes # (Auto) 0.76 0.11-0.59 K/uL Eosinophils # (Auto) 0.05 0-0.5 K/uL Basophils # (Auto) 0.02 0-0.2 K/uL RDW Standard Deviation 48.2 36.4-46.3 fL RDW Coefficient of Variation 14.5 11.5-14.5 % Immature Granulocyte % (Auto) 0.3 % Immature Granulocyte # (Auto) 0.02 0.00-0.02 K/uL Prothrombin Time 9.9 9.0-12.0 SECONDS Prothromb Time International Ratio 0.9 0.9-1.1 Activated Partial Thromboplast Time 29.7 21.0-31.0 SECONDS Partial Thromboplastin Ratio 1.1 Sodium Level 137 136-145 mmol/L Potassium Level 3.8 3.5-5.1 mmol/L Chloride Level 102 98-107 mmol/L Carbon Dioxide Level 29 21-32 mmol/L Anion Gap 6.0 3-11 mmol/L Blood Urea Nitrogen 24 7-18 mg/dl Creatinine 1.04 0.60-1.20 mg/dl Est Creatinine Clear Calc Drug Dose 32.3 ml/min Estimated GFR () 55.6 Estimated GFR (Non- 47.9 BUN/Creatinine Ratio 23.0 10-20 Random Glucose 98 70-99 mg/dl Calcium Level 9.0 8.5-10.1 mg/dl Magnesium Level 2.3 1.8-2.4 mg/dl Total Creatine Kinase 143 26-192 U/L Creatine Kinase MB 3.3 0.5-3.6 ng/ml Creatine Kinase MB Ratio 2.3 0-3.0 Troponin I < 0.015 0-0.045 ng/ml Chemistry Specimen Hemolysis Diagnostic Radiology HEAD CT IMPRESSION: 1. No acute intracranial findings 2. Stable 2 cm left cerebellar hemisphere extra-axial mass, likely representing a meningioma CXR IMPRESSION: 1. No acute cardiopulmonary disease. Impression Assessment and Plan NUMBNESS, EPISODE OF SLURRED SPEECH -Admit to telemetry -Patient presenting with generalized numbness, left greater than right, and episode of slurred speech last evening; in the ED head CT negative for acute findings, labs unremarkable -Symptoms difficult to differentiate for patient due to her history of Parkinson 's -Patient presented with similar symptoms in February 2017, was started on aspirin 81 mg at that time -Noted unremarkable brain MRI, echocardiogram, carotid ultrasound in February 2017 -Case discussed with Dr. Phipps, since patient had an extensive workup in February 2017, will hold on repeating MRI at this time; will check CTA head and neck for now -Neurochecks -Permissive HTN -Would like to start patient on Plavix for possible recurrent TIA, however patient declining due to easy bruising in the past -We will increase aspirin to 162 mg daily -Discussed with patient about starting statin therapy, reports that she will think about it and let us know RECENT UTI -Currently finishing up course of Cipro for E. coli UTI -Continue Cipro to complete course PARKINSON'S -Continue Sinemet and selegiline HISTORY CPA MENINGIOMA -Due for follow-up MRI February 2018 DVT PROPHYLAXIS -SQ heparin CODE STATUS -Patient is a DNR as per my discussion with her and her daughter who is the bedside ADDENDUM: This is a 86 year old female with PMH of Parkinson's, hx. of stable meningioma - presents with a cluster of neurology symptoms including numbness/tingling L>R , R sided weakness. During my exam, c/o shortness of breath and sinus pressure. Neurological symptoms improved. CTA performed - no acute findings, stable meningioma. Neuro aware - initially recommended Plavix, though patient refused. Patient considering Lipitor addition. Agreeable to increase aspirin to 162mg for now. Further management as per neurology. PT/OT/speech Advanced Directives Existing Living Will: Yes Existing Power of Engineering Systems Analyst: Yes Resuscitation Status VTE Prophylaxis Will order VTE Prophylaxis: Yes
[2017-06-11] MEDS ORDERED: ALBUT/IPRATROP 3MG/0.5MG NEB 3 ML VIAL INH ONE (20:30)
[2017-06-11 20:43] VITALS: PULSE 79; O2SAT 99
[2017-06-11 20:49] VITALS: BP 179/113; PULSE 76; TEMP 36.5; O2SAT 98
[2017-06-11] MEDS ORDERED: SELEGILINE HCL 5 MG CAP PO SCH (21:00)
[2017-06-11] MEDS ORDERED: LACTOBACILLUS ACIDOPHILUS (FLORANEX) TAB PO SCH (21:00)
[2017-06-11] MEDS: CIPROFLOXACIN 250 MG TAB PO SCH (21:00)
[2017-06-11] MEDS: MAGNESIUM OXIDE 400 MG TAB PO SCH (21:01)
[2017-06-11] MEDS: HEPARIN SOD 5000 UNIT/0.5 ML CARP SQ SCH (21:01)
[2017-06-11] MEDS: GABAPENTIN 100 MG CAP PO SCH (21:02)
[2017-06-11] MEDS: SERTRALINE HCL 50 MG TAB PO SCH (21:03)
[2017-06-11] MEDS ORDERED: NURSING VERBAL MED ORDER ONE ×2 (22:00)
[2017-06-11] MEDS: CARBIDOPA/LEVODOPA 25/100MG TAB PO SCH (23:17)
[2017-06-12] VITALS (9 sets, daily range): BP systolic 122–176; BP diastolic 70–91; PULSE 70–74; TEMP 36.6–37; O2SAT 96–98; Ht 162.6 cm; Wt 60.9 kg
[2017-06-12] MEDS: HEPARIN SOD 5000 UNIT/0.5 ML CARP SQ SCH ×3 (06:00→21:52)
[2017-06-12] MEDS: CARBIDOPA/LEVODOPA 25/100MG TAB PO SCH ×4 (06:12→23:15)
[2017-06-12 06:18] LABS: HEMOGLOBIN A1C 6.1 % (4.5-5.6)
[2017-06-12 06:39] LABS: BASO % 0.5 %; BASO ABS # 0.03 K/uL (0-0.2); EOS ABS # 0.06 K/uL (0-0.5); HEMATOCRIT 40.4 % (37-47); HEMOGLOBIN 13.9 g/dL (12.0-16.0); IG# 0.02 K/uL (0.00-0.02); LYMPH % 20.7 %; LYMPH ABS # 1.24 K/uL (1.2-3.4); MEAN CELL VOLUME 89.8 fL (80-100); MEAN CORPUSCULAR HEMOGLOBIN 30.9 pg (25-34); MEAN CORPUSCULAR HGB CONC 34.4 g/dl (32-36); MEAN PLATELET VOLUME 8.9 fL (7.4-10.4); MONO % 12.7 %; MONO ABS # 0.76 K/uL (0.11-0.59); NEUT % 64.8 %; NEUT ABS # 3.88 K/uL (1.4-6.5); PLATELET COUNT 451 K/uL (130-400); RED CELL DISTRIBUTION WIDTH CV 14.4 % (11.5-14.5); RED CELL DISTRIBUTION WIDTH SD 47.4 fL (36.4-46.3); WHITE BLOOD COUNT 5.99 K/uL (4.8-10.8)
[2017-06-12 07:09] LABS: CALCIUM 8.7 mg/dl (8.5-10.1); CREATININE 0.69 mg/dl (0.60-1.20); POTASSIUM 3.6 mmol/L (3.5-5.1)
[2017-06-12] MEDS: CHOLECALCIFEROL 1000 INTER.UNIT TAB PO SCH (08:47)
[2017-06-12] MEDS: GABAPENTIN 100 MG CAP PO SCH ×3 (08:47→21:51)
[2017-06-12] MEDS: MAGNESIUM OXIDE 400 MG TAB PO SCH ×2 (08:47→21:51)
[2017-06-12] MEDS: CYANOCOBALAMIN 500 MCG TAB (VIT B-12) PO SCH (08:48)
[2017-06-12] MEDS: CIPROFLOXACIN 250 MG TAB PO SCH ×2 (08:49→21:50)
[2017-06-12] MEDS: SELEGILINE HCL 5 MG CAP PO SCH ×2 (08:49→14:52)
[2017-06-12] MEDS: ASPIRIN 81 MG ECTAB PO SCH (08:49)
[2017-06-12] MEDS: TRIAMCINOLONE ACET NASAL SPRAY 10.8ML BTL NAE SCH (08:50)
[2017-06-12] MEDS: CEROVITE ADV FORMULA TAB PO SCH (08:50)
[2017-06-12] MEDS: POTASSIUM CHLORIDE 10 MEQ TABCR PO SCH (08:51)
--- NOTE | 2017-06-12 10:50 | Progress Note ---
Subjective Date of Service: Jun 12, 2017. Subjective Pt evaluation today including: conversation w/ patient, physical exam, lab review, review of studies, review of inpatient medication list Saw/examined the patient in room 278 She continues to c/o peripheral neuropathy, especially in the upper extremities Denies any chest pain/shortness of breath Also c/o sinus pressure. Problem List Medical Problems: (1) Closed head injury Status: Acute (2) Contusion, hip Status: Acute (3) Fall Status: Acute (4) Flushing reaction Status: Acute (5) Hematoma of left lower extremity Status: Acute (6) Meningioma Status: Acute (7) Numbness on right side Status: Acute (8) Syncopal episodes Status: Acute Review of Systems Constitutional: No fever, No chills ENT: + nasal symptoms Respiratory: No shortness of breath Cardiac: No chest pain Neurologic: + weakness, + numbness/tingling, No paralysis Psychiatric: No depression symptoms, No anxiety, No insomnia Medications Current Inpatient Medications Medications (Trade) Dose Ordered Sig/[place]ton Route Start Time Stop Time Status Last Admin Dose Admin Heparin Sodium (Porcine) (Heparin Sq 5000 Unit/0.5ml) 5,000 unit Q8 SQ 06/11/17 22:00 07/11/17 21:59 Acetaminophen (Tylenol Tab) 650 mg Q4H PRN PO 06/11/17 18:00 07/11/17 17:59 Ondansetron HCl (Zofran Inj) 4 mg Q6H PRN IV 06/11/17 18:00 07/11/17 17:59 Miscellaneous Information (Pharmacist Discharge Med Rec Consult) 1 ea UD PRN N/A 06/11/17 18:15 07/11/17 18:14 Ioversol (Optiray 320) 111 ml UD PRN IV 06/11/17 18:15 06/15/17 18:14 Aspirin (Ecotrin Tab) 162 mg QAM PO 06/12/17 09:00 07/12/17 08:59 06/12/17 08:49 162 MG Carbidopa/Levodopa (Sinemet 25/ 100MG Tab) 1 tab DAILY@0600 PO 06/12/17 06:00 07/12/17 05:59 06/12/17 06:12 1 TAB Carbidopa/Levodopa (Sinemet 25/ 100MG Tab) 2 tab TID@0900,1500,2300 PO 06/11/17 23:00 07/11/17 22:59 06/12/17 08:46 2 TAB Ciprofloxacin (Ciprofloxacin Tab) 250 mg BID PO 06/11/17 21:00 06/12/17 21:01 06/12/17 08:49 250 MG Cyanocobalamin (Vitamin B-12 Tab) 500 mcg DAILY PO 06/12/17 09:00 07/12/17 08:59 06/12/17 08:48 500 MCG Gabapentin (Neurontin Cap) 100 mg TID PO 06/11/17 21:00 07/11/17 20:59 06/12/17 08:47 100 MG Sertraline HCl (Zoloft Tab) 25 mg HS PO 06/11/17 21:00 07/11/17 20:59 06/11/17 21:03 25 MG Cholecalciferol (Vitamin D Tab) 2,000 inter.unit DAILY PO 06/12/17 09:00 07/12/17 08:59 06/12/17 08:47 2,000 INTER.UNIT Magnesium Oxide (Mag-Ox Tab) 400 mg BID PO 06/11/17 21:00 07/11/17 20:59 06/12/17 08:47 400 MG Multivitamins/ Minerals (Multivitamin W/ Minerals Tab) 1 tab QAM PO 06/12/17 09:00 07/12/17 08:59 06/12/17 08:50 1 TAB Potassium Chloride (Klor-Con M10) 10 meq DAILY PO 06/12/17 09:00 07/12/17 08:59 06/12/17 08:51 10 MEQ Miscellaneous (Iv Fluids Completed) 1 ea PRN PRN N/A 06/11/17 19:15 06/11/18 19:14 Triamcinolone Acetonide (Nasacort Allergy 24hr) 2 sprays DAILY ANURAG 06/12/17 09:00 07/12/17 08:59 06/12/17 08:50 2 SPRAYS Lactobacillus Acidophilus (Floranex Tab) 4 tab DAILY@1500 PO 06/12/17 15:00 07/12/17 14:59 Selegiline HCl (Eldepryl Cap) 5 mg BID@0900,1500 PO 06/12/17 09:00 07/12/17 08:59 06/12/17 08:49 5 MG Objective Vital Signs Date Time Temp Pulse Resp B/P (MAP) Pulse Ox O2 Delivery O2 Flow Rate FiO2 06/12/17 08:00 97 Nasal Cannula 2.0 06/12/17 07:39 36.8 74 18 147/80 (102) 97 Nasal Cannula 2.0 06/12/17 04:00 36.6 73 20 157/89 (111) 97 Room Air 06/12/17 04:00 Nasal Cannula 06/12/17 00:00 Nasal Cannula 06/12/17 00:00 36.8 71 20 176/91 (119) 96 2.0 06/11/17 20:49 36.5 76 16 179/113 (135) 98 Room Air 06/11/17 20:43 79 16 99 Nasal Cannula 2.0 06/11/17 19:03 76 18 186/99 99 Room Air 06/11/17 18:59 36.7 72 18 184/103 98 Room Air 06/11/17 18:22 36.7 72 18 184/103 99 Room Air 06/11/17 16:28 72 06/11/17 16:09 72 18 156/104 98 Room Air 06/11/17 16:01 98 Room Air 06/11/17 15:28 74 18 152/87 98 Room Air Physical Exam General Appearance: no apparent distress Respiratory/Chest: lungs clear, normal breath sounds, no respiratory distress, no accessory muscle use Cardiovascular: regular rate, rhythm, no edema, no murmur Extremities: normal inspection, no pedal edema, + pertinent finding (venous stasis dermatitis) Neurologic/Psychiatric: no motor/sensory deficits, alert, normal mood/affect Laboratory Results Last 24 Hours Test 06/11/17 15:40 06/11/17 16:08 06/11/17 16:18 06/12/17 06:22 White Blood Count 7.86 K/uL 5.99 K/uL Red Blood Count 5.06 M/uL 4.50 M/uL Hemoglobin 15.1 g/dL 13.9 g/dL Hematocrit 46.3 % 40.4 % Mean Corpuscular Volume 91.5 fL 89.8 fL Mean Corpuscular Hemoglobin 29.8 pg 30.9 pg Mean Corpuscular Hemoglobin Concent 32.6 g/dl 34.4 g/dl Platelet Count 536 K/uL 451 K/uL Mean Platelet Volume 9.0 fL 8.9 fL Neutrophils (%) (Auto) 73.1 % 64.8 % Lymphocytes (%) (Auto) 16.0 % 20.7 % Monocytes (%) (Auto) 9.7 % 12.7 % Eosinophils (%) (Auto) 0.6 % 1.0 % Basophils (%) (Auto) 0.3 % 0.5 % Neutrophils # (Auto) 5.75 K/uL 3.88 K/uL Lymphocytes # (Auto) 1.26 K/uL 1.24 K/uL Monocytes # (Auto) 0.76 K/uL 0.76 K/uL Eosinophils # (Auto) 0.05 K/uL 0.06 K/uL Basophils # (Auto) 0.02 K/uL 0.03 K/uL RDW Standard Deviation 48.2 fL 47.4 fL RDW Coefficient of Variation 14.5 % 14.4 % Immature Granulocyte % (Auto) 0.3 % 0.3 % Immature Granulocyte # (Auto) 0.02 K/uL 0.02 K/uL Prothrombin Time 9.9 SECONDS Prothromb Time International Ratio 0.9 Activated Partial Thromboplast Time 29.7 SECONDS Partial Thromboplastin Ratio 1.1 Sodium Level 137 mmol/L 138 mmol/L Potassium Level 3.8 mmol/L 3.6 mmol/L Chloride Level 102 mmol/L 104 mmol/L Carbon Dioxide Level 29 mmol/L 27 mmol/L Anion Gap 6.0 mmol/L 7.0 mmol/L Blood Urea Nitrogen 24 mg/dl 16 mg/dl Creatinine 1.04 mg/dl 0.69 mg/dl Est Creatinine Clear Calc Drug Dose 32.3 ml/min 48.7 ml/min Estimated GFR () 55.6 90.1 Estimated GFR (Non- 47.9 77.7 BUN/Creatinine Ratio 23.0 23.1 Random Glucose 98 mg/dl 95 mg/dl Estimated Average Glucose 128 mg/dl Hemoglobin A1c 6.1 % Calcium Level 9.0 mg/dl 8.7 mg/dl Magnesium Level 2.3 mg/dl Total Creatine Kinase 143 U/L Creatine Kinase MB 3.3 ng/ml Creatine Kinase MB Ratio 2.3 Troponin I < 0.015 ng/ml Chemistry Specimen Hemolysis Bedside Glucose 92 mg/dl Bedside Prothrombin Time INR 1.0 Triglycerides Level 121 mg/dl Cholesterol Level 244 mg/dl HDL Cholesterol 73 mg/dl LDL Cholesterol, Calculated 147 mg/dl VLDL Cholesterol, Calculated 24 mg/dl Cholesterol/HDL Ratio 3.3 Assessment and Plan This is a 86 year old female with PMH of Parkinson's, hx. of stable meningioma - presents with a cluster of neurology symptoms including numbness/tingling L>R , R sided weakness. Neuropathy, Questionable Slurring of Speech Hx. of Meningioma 06/12 - patient with known neuropathy - hx. of benign meningioma - presented with neuropathy all over, some RLE weakness, possibly slurring of speech as per records - Head CT negative - CTA head - stable meningioma, no acute issues - recommendation by neurology to start Plavix - patient refused - Patient also refusing statin therapy - agreeable to increase Aspirin to 162mg - PT/OT/speech consulted - neurology consulted as well Recent UTI - to complete Cipro course today (06/12) Parkinson - continue Sinemet, Selegiline DVT ppx - subq heparin DNR
[2017-06-12] MEDS: LACTOBACILLUS ACIDOPHILUS (FLORANEX) TAB PO SCH (14:37)
--- NOTE | 2017-06-12 15:51 | Neurology Consultation ---
Neurology Consultation Date of Consultation: Jun 12, 2017. Attending Physician: Ching Roberts DO Primary Care Physician: Paulo Hernandez D.O. Reason for Consultation: stroke like symptoms History of Present Illness Source: patient, caregiver Yudelka is a 86 year old female who presents to the ER with a chief complaint of slurred speech and numbness. Daughter reported her mothers speech to be somewhat slurred last evening and she had numbness over her entire body, felt like the left side was more numb than the right. She was able to go to sleep and slept well throughout the night. When she woke up this morning the numbness persisted. She reports increased difficulty with ambulating feeling like her right leg was weaker than the left. She does have Parkinson's lead care manager reports she has been freezing more. She is being treated for a urinary tract infection. She has been having hot and cold episodes for the past 6 months and she thinks it is the Sinemet that is causing the problems. denies CP , SOB, abdominal pain, current one sided weakness, numbness tingling, N, V, headache, muscle stiffness. Past Medical/Surgical History Medical Problems: (1) Closed head injury Status: Acute (2) Contusion, hip Status: Acute (3) Fall Status: Acute (4) Flushing reaction Status: Acute (5) Hematoma of left lower extremity Status: Acute (6) Meningioma Status: Acute (7) Numbness on right side Status: Acute (8) Syncopal episodes Status: Acute Social History Smoking Status: Former smoker Alcohol Use: occasionally Housing Status: lives with family Allergies Uncoded Allergies: NARCOTICS (Adverse Reaction, Unknown, DIZZY, , 06/25/15) Current Inpatient Medications Current Inpatient Medications Medications (Trade) Dose Ordered Sig/Payton Route Start Time Stop Time Status Last Admin Dose Admin Heparin Sodium (Porcine) (Heparin Sq 5000 Unit/0.5ml) 5,000 unit Q8 SQ 06/11/17 22:00 07/11/17 21:59 Acetaminophen (Tylenol Tab) 650 mg Q4H PRN PO 06/11/17 18:00 07/11/17 17:59 Ondansetron HCl (Zofran Inj) 4 mg Q6H PRN IV 06/11/17 18:00 07/11/17 17:59 Miscellaneous Information (Pharmacist Discharge Med Rec Consult) 1 ea UD PRN N/A 06/11/17 18:15 07/11/17 18:14 Ioversol (Optiray 320) 111 ml UD PRN IV 06/11/17 18:15 06/15/17 18:14 Aspirin (Ecotrin Tab) 162 mg QAM PO 06/12/17 09:00 07/12/17 08:59 06/12/17 08:49 162 MG Carbidopa/Levodopa (Sinemet 25/ 100MG Tab) 1 tab DAILY@0600 PO 06/12/17 06:00 07/12/17 05:59 06/12/17 06:12 1 TAB Carbidopa/Levodopa (Sinemet 25/ 100MG Tab) 2 tab TID@0900,1500,2300 PO 06/11/17 23:00 07/11/17 22:59 06/12/17 14:51 2 TAB Ciprofloxacin (Ciprofloxacin Tab) 250 mg BID PO 06/11/17 21:00 06/12/17 21:01 06/12/17 08:49 250 MG Cyanocobalamin (Vitamin B-12 Tab) 500 mcg DAILY PO 06/12/17 09:00 07/12/17 08:59 06/12/17 08:48 500 MCG Gabapentin (Neurontin Cap) 100 mg TID PO 06/11/17 21:00 07/11/17 20:59 06/12/17 14:37 100 MG Sertraline HCl (Zoloft Tab) 25 mg HS PO 06/11/17 21:00 07/11/17 20:59 06/11/17 21:03 25 MG Cholecalciferol (Vitamin D Tab) 2,000 inter.unit DAILY PO 06/12/17 09:00 07/12/17 08:59 06/12/17 08:47 2,000 INTER.UNIT Magnesium Oxide (Mag-Ox Tab) 400 mg BID PO 06/11/17 21:00 07/11/17 20:59 06/12/17 08:47 400 MG Multivitamins/ Minerals (Multivitamin W/ Minerals Tab) 1 tab QAM PO 06/12/17 09:00 07/12/17 08:59 06/12/17 08:50 1 TAB Potassium Chloride (Klor-Con M10) 10 meq DAILY PO 06/12/17 09:00 07/12/17 08:59 06/12/17 08:51 10 MEQ Miscellaneous (Iv Fluids Completed) 1 ea PRN PRN N/A 06/11/17 19:15 06/11/18 19:14 Triamcinolone Acetonide (Nasacort Allergy 24hr) 2 sprays DAILY ANURAG 06/12/17 09:00 07/12/17 08:59 06/12/17 08:50 2 SPRAYS Lactobacillus Acidophilus (Floranex Tab) 4 tab DAILY@1500 PO 06/12/17 15:00 07/12/17 14:59 06/12/17 14:37 4 TAB Selegiline HCl (Eldepryl Cap) 5 mg BID@0900,1500 PO 06/12/17 09:00 07/12/17 08:59 06/12/17 14:52 5 MG Physical Exam Vital Signs (Past 24 Hrs): Date Time Temp Pulse Resp B/P (MAP) Pulse Ox O2 Delivery O2 Flow Rate FiO2 06/12/17 12:00 Room Air 06/12/17 11:33 36.6 70 18 125/82 (96) 98 Room Air 06/12/17 08:00 97 Nasal Cannula 2.0 06/12/17 07:39 36.8 74 18 147/80 (102) 97 Nasal Cannula 2.0 06/12/17 04:00 36.6 73 20 157/89 (111) 97 Room Air 06/12/17 04:00 Nasal Cannula 06/12/17 00:00 Nasal Cannula 06/12/17 00:00 36.8 71 20 176/91 (119) 96 2.0 06/11/17 20:49 36.5 76 16 179/113 (135) 98 Room Air 06/11/17 20:43 79 16 99 Nasal Cannula 2.0 06/11/17 19:03 76 18 186/99 99 Room Air 06/11/17 18:59 36.7 72 18 184/103 98 Room Air 06/11/17 18:22 36.7 72 18 184/103 99 Room Air 06/11/17 16:28 72 06/11/17 16:09 72 18 156/104 98 Room Air 06/11/17 16:01 98 Room Air Physical Exam: Constitutional: appearance nourished, healthy Ears, Nose, Mouth and Throat: mucous membranes moist, no injection and skin normal, eyes normal Cardiovascular: normal S-1 and S-2 and regular rate and rhythm Respiratory: clear to auscultation (CTA) and no rales, rhonchi or wheeze Musculoskeletal: no peripheral edema and good distal pulses Skin: peripheral neurocutaneous disease bilaterally Eyes: extraocular muscles intact (EOMI) and pupils equal, round and reactive to light (PERRL) NEUROLOGIC EXAMINATION: Mental status: Alert and interactive Oriented [facility], 2018 Oriented to person Speech fluent with no evidence of aphasia Cranial Nerves smile eye brow raise symmetric Reflexes: Deep tendon reflexes were symmetrical and graded 2/5. Plantar responses were flexor. Sensory: to light or cool touch Coordination: finger to nose no bi pass, no reaching tremor or resting tremor, no cog wheeling Gait/Stance: Posture sitting up in bedside chair Motor: Negative for pronator drift of out stretched arms with eyes closed. Strength: biceps triceps hand careers counsellor 5/5 bilaterally, hip flex plantar flex ext 5/5- appropriate for stated age Laboratory Results Past 24 Hours: 06/12/17 06:22 Red Blood Count 4.50, Mean Corpuscular Volume 89.8, Mean Corpuscular Hemoglobin 30.9, Mean Corpuscular Hemoglobin Concent 34.4, Mean Platelet Volume 8.9, Neutrophils (%) (Auto) 64.8, Lymphocytes (%) (Auto) 20.7, Monocytes (%) (Auto) 12.7, Eosinophils (%) (Auto) 1.0, Basophils (%) (Auto) 0.5, Neutrophils # (Auto ) 3.88, Lymphocytes # (Auto) 1.24, Monocytes # (Auto) 0.76, Eosinophils # (Auto ) 0.06, Basophils # (Auto) 0.03 06/12/17 06:22 Test 06/11/17 15:40 06/11/17 16:08 06/11/17 16:18 06/12/17 00:00 Prothrombin Time 9.9 SECONDS (9.0-12.0) Prothromb Time International Ratio 0.9 (0.9-1.1) Activated Partial Thromboplast Time 29.7 SECONDS (21.0-31.0) Partial Thromboplastin Ratio 1.1 Estimated Average Glucose 128 mg/dl Hemoglobin A1c 6.1 % (4.5-5.6) Magnesium Level 2.3 mg/dl (1.8-2.4) Total Creatine Kinase 143 U/L (26-192) Creatine Kinase MB 3.3 ng/ml (0.5-3.6) Creatine Kinase MB Ratio 2.3 (0-3.0) Troponin I < 0.015 ng/ml (0-0.045) Chemistry Specimen Hemolysis Bedside Glucose 92 mg/dl (70-90) Bedside Prothrombin Time INR 1.0 (0.9-1.1) Urine Color DK YELLOW Urine Appearance CLOUDY (CLEAR) Urine pH 5.0 (4.5-7.5) Urine Specific [place] 1.037 (1.000-1.030) Urine Protein NEG (NEG) Urine Glucose (UA) NEG (NEG) Urine Ketones TRACE (NEG) Urine Occult Blood NEG (NEG) Urine Nitrite NEG (NEG) Urine Bilirubin NEG (NEG) Urine Urobilinogen NEG (NEG) Urine Leukocyte Esterase NEG (NEG) Urine WBC (Auto) 1-5 /hpf (0-5) Urine RBC (Auto) 0-4 /hpf (0-4) Urine Hyaline Casts (Auto) 10-30 /lpf (0-5) Urine Epithelial Cells (Auto) >30 /lpf (0-5) Urine Bacteria (Auto) NEG (NEG) Test 06/12/17 06:22 White Blood Count 5.99 K/uL (4.8-10.8) Red Blood Count 4.50 M/uL (4.2-5.4) Hemoglobin 13.9 g/dL (12.0-16.0) Hematocrit 40.4 % (37-47) Mean Corpuscular Volume 89.8 fL (80-100) Mean Corpuscular Hemoglobin 30.9 pg (25-34) Mean Corpuscular Hemoglobin Concent 34.4 g/dl (32-36) Platelet Count 451 K/uL (130-400) Mean Platelet Volume 8.9 fL (7.4-10.4) Neutrophils (%) (Auto) 64.8 % Lymphocytes (%) (Auto) 20.7 % Monocytes (%) (Auto) 12.7 % Eosinophils (%) (Auto) 1.0 % Basophils (%) (Auto) 0.5 % Neutrophils # (Auto) 3.88 K/uL (1.4-6.5) Lymphocytes # (Auto) 1.24 K/uL (1.2-3.4) Monocytes # (Auto) 0.76 K/uL (0.11-0.59) Eosinophils # (Auto) 0.06 K/uL (0-0.5) Basophils # (Auto) 0.03 K/uL (0-0.2) RDW Standard Deviation 47.4 fL (36.4-46.3) RDW Coefficient of Variation 14.4 % (11.5-14.5) Immature Granulocyte % (Auto) 0.3 % Immature Granulocyte # (Auto) 0.02 K/uL (0.00-0.02) Anion Gap 7.0 mmol/L (3-11) Est Creatinine Clear Calc Drug Dose 48.7 ml/min Estimated GFR () 90.1 Estimated GFR (Non- 77.7 BUN/Creatinine Ratio 23.1 (10-20) Calcium Level 8.7 mg/dl (8.5-10.1) Triglycerides Level 121 mg/dl (0-150) Cholesterol Level 244 mg/dl (0-200) HDL Cholesterol 73 mg/dl LDL Cholesterol, Calculated 147 mg/dl VLDL Cholesterol, Calculated 24 mg/dl Cholesterol/HDL Ratio 3.[address] head- . No acute intracranial findings Stable 2 cm left cerebellar hemisphere extra-axial mass, likely representing a meningioma CTA head No evidence of hemodynamically significant carotid or vertebral artery stenosis. No evidence of dissection. CTA neck - 2 cm left cerebellar extra-axial mass, likely representing a meningioma Otherwise unremarkable CT angiography of the brain. Impression 86 year old female numbness and slurred speech resolved Plan 1. CT head, CTA head and neck no acute findings 2. continue Sinemet (1 tablet) 25/100 mg early am, (2 tablets 0900, 1500, 2300) as per home schedule 3. gabapentin 100 mg TID for now 4. Cipro currently treatment of UTI- will need to finish course 5. long discussion regarding decreasing Sinemet however she has decided to stay on current dosing for now and discuss it with Fadi RAYO at her next appointment 6. work up in February was done with same symptoms no further imaging recommended at this time 7. currently scheduled to see Fadi RAYO in our office 07/20/2017 will advised to call office to move appointment for 3-4 weeks I have seen and discussed above patient with Dr Philippe Phipps, neurology Patient seen known to me and Tonya rayo moderate pd and mild cognitive impairment on sinemet as above with transient dysarthria last night and generalized paresthesias ( she has these chronically) now at baseline according to lead care manager and imaging studies all unremarkable as is exam save for hearing impairment mild confusion and minimal pd signs would add a low dose asa observe overnight for a total of 36 hours post possible tia and discharge tomorrow if stable on current pd meds athe additional asa and follow up as previously planned Philippe Phipps MD
[2017-06-12] MEDS ORDERED: NURSING DECISION MEDICATION ORDER SCH (17:45)
[2017-06-12] MEDS ORDERED: SODIUM CHLORIDE 0.65% NA SOLN 45 ML (OCEAN) PRN (18:00)
--- NOTE | 2017-06-12 18:23 | DIAGNOSTIC IMAGING REPORT ---
HEAD WITHOUT CONTRAST (CT) CT DOSE: 638.56 mGycm HISTORY: Mental status change r/o cva TECHNIQUE: Multiaxial CT images of the head were performed without the use of intravenous contrast. A dose lowering technique was utilized adhering to the principles of ALARA. Comparison: 06/11/2017 Findings: The paranasal sinuses and mastoid air cells are clear. 2 cm extra-axial meningioma left cerebellar region. This is unchanged. There moderate periventricular and deep white matter in homogeneity consistent with age-related chronic small vessel change. This is also stable. No evidence for new or interval process. No evidence for midline shift. Impression: 1. No acute intracranial abnormality. 2. Left cerebellar meningioma unchanged. 3. Chronic small vessel change throughout both cerebral hemispheres stable from the prior exam. The above report was generated using voice recognition software. It may contain grammatical, syntax or spelling errors. Electronically signed by: Kwasi Keane M.D. 06/12/2017 6:22 PM Dictated Date/Time: 06/12/2017 6:19 PM
[2017-06-12] MEDS: SERTRALINE HCL 50 MG TAB PO SCH (21:52)
[2017-06-13 04:02] VITALS: BP 156/80; PULSE 71; TEMP 36.3; O2SAT 96
[2017-06-13] MEDS: CARBIDOPA/LEVODOPA 25/100MG TAB PO SCH ×3 (05:48→15:20)
[2017-06-13] MEDS: HEPARIN SOD 5000 UNIT/0.5 ML CARP SQ SCH ×2 (05:49→14:00)
[2017-06-13 07:20] VITALS: BP 134/77; PULSE 71; TEMP 36.8; O2SAT 98
[2017-06-13 08:15] LABS: BASO % 0.5 %; BASO ABS # 0.03 K/uL (0-0.2); EOS % 0.8 %; EOS ABS # 0.05 K/uL (0-0.5); HEMOGLOBIN 13.7 g/dL (12.0-16.0); IG# 0.02 K/uL (0.00-0.02); LYMPH % 19.3 %; LYMPH ABS # 1.28 K/uL (1.2-3.4); MEAN CELL VOLUME 89.7 fL (80-100); MEAN CORPUSCULAR HGB CONC 33.4 g/dl (32-36); MEAN PLATELET VOLUME 8.7 fL (7.4-10.4); MONO % 9.4 %; MONO ABS # 0.62 K/uL (0.11-0.59); NEUT % 69.7 %; NEUT ABS # 4.62 K/uL (1.4-6.5); PLATELET COUNT 420 K/uL (130-400); RED CELL DISTRIBUTION WIDTH CV 14.8 % (11.5-14.5); RED CELL DISTRIBUTION WIDTH SD 48.4 fL (36.4-46.3); WHITE BLOOD COUNT 6.62 K/uL (4.8-10.8)
[2017-06-13] MEDS: GABAPENTIN 100 MG CAP PO SCH ×2 (08:47→14:29)
[2017-06-13] MEDS: CHOLECALCIFEROL 1000 INTER.UNIT TAB PO SCH (08:47)
[2017-06-13] MEDS: CEROVITE ADV FORMULA TAB PO SCH (08:47)
[2017-06-13 08:48] LABS: CREATININE 0.84 mg/dl (0.60-1.20); POTASSIUM 3.8 mmol/L (3.5-5.1)
[2017-06-13] MEDS: SELEGILINE HCL 5 MG CAP PO SCH ×2 (08:48→14:30)
[2017-06-13] MEDS: ASPIRIN 81 MG ECTAB PO SCH (08:48)
[2017-06-13] MEDS: MAGNESIUM OXIDE 400 MG TAB PO SCH (08:48)
[2017-06-13] MEDS: POTASSIUM CHLORIDE 10 MEQ TABCR PO SCH (08:48)
[2017-06-13] MEDS: TRIAMCINOLONE ACET NASAL SPRAY 10.8ML BTL NAE SCH (08:49)
[2017-06-13] MEDS: CYANOCOBALAMIN 500 MCG TAB (VIT B-12) PO SCH (08:50)
[2017-06-13 12:00] VITALS: BP 125/70; PULSE 70; TEMP 36.6; O2SAT 98
[2017-06-13] MEDS: LACTOBACILLUS ACIDOPHILUS (FLORANEX) TAB PO SCH (14:30)
[2017-06-13 14:31] VITALS: BP 125/70; PULSE 70; TEMP 36.6; O2SAT 98
--- NOTE | 2017-06-13 15:02 | Progress Note ---
Subjective Date of Service: Jun 13, 2017. Subjective Pt evaluation today including: conversation w/ patient, conversation w/ family , physical exam, lab review, review of studies, conversation w/ workday consultant, review of inpatient medication list Saw/examined the patient in room 278 She's doing well, neuropathy in the upper extremities persists ambulating well, no confusion, no motor dysfunction Problem List Medical Problems: (1) Closed head injury Status: Acute (2) Contusion, hip Status: Acute (3) Fall Status: Acute (4) Flushing reaction Status: Acute (5) Hematoma of left lower extremity Status: Acute (6) Meningioma Status: Acute (7) Numbness on right side Status: Acute (8) Syncopal episodes Status: Acute Review of Systems Respiratory: No shortness of breath Cardiac: No chest pain Abdomen: No pain, No nausea, No vomiting, No diarrhea Neurologic: + numbness/tingling, No memory loss, No paralysis, No weakness, No vertigo, No balance problems Psychiatric: No depression symptoms, No anxiety, No insomnia Heme: No abnormal bleeding/bruising Medications Current Inpatient Medications Medications (Trade) Dose Ordered Sig/Payton Route Start Time Stop Time Status Last Admin Dose Admin Heparin Sodium (Porcine) (Heparin Sq 5000 Unit/0.5ml) 5,000 unit Q8 SQ 06/11/17 22:00 07/11/17 21:59 Acetaminophen (Tylenol Tab) 650 mg Q4H PRN PO 06/11/17 18:00 07/11/17 17:59 Ondansetron HCl (Zofran Inj) 4 mg Q6H PRN IV 06/11/17 18:00 07/11/17 17:59 Ioversol (Optiray 320) 111 ml UD PRN IV 06/11/17 18:15 06/15/17 18:14 Aspirin (Ecotrin Tab) 162 mg QAM PO 06/12/17 09:00 07/12/17 08:59 06/13/17 08:48 162 MG Carbidopa/Levodopa (Sinemet 25/ 100MG Tab) 1 tab DAILY@0600 PO 06/12/17 06:00 07/12/17 05:59 06/13/17 05:48 1 TAB Carbidopa/Levodopa (Sinemet 25/ 100MG Tab) 2 tab TID@0900,1500,2300 PO 06/11/17 23:00 07/11/17 22:59 06/13/17 08:47 2 TAB Cyanocobalamin (Vitamin B-12 Tab) 500 mcg DAILY PO 06/12/17 09:00 07/12/17 08:59 06/13/17 08:50 500 MCG Gabapentin (Neurontin Cap) 100 mg TID PO 06/11/17 21:00 07/11/17 20:59 06/13/17 14:29 100 MG Sertraline HCl (Zoloft Tab) 25 mg HS PO 06/11/17 21:00 07/11/17 20:59 06/12/17 21:52 25 MG Cholecalciferol (Vitamin D Tab) 2,000 inter.unit DAILY PO 06/12/17 09:00 07/12/17 08:59 06/13/17 08:47 2,000 INTER.UNIT Magnesium Oxide (Mag-Ox Tab) 400 mg BID PO 06/11/17 21:00 07/11/17 20:59 06/13/17 08:48 400 MG Multivitamins/ Minerals (Multivitamin W/ Minerals Tab) 1 tab QAM PO 06/12/17 09:00 07/12/17 08:59 06/13/17 08:47 1 TAB Potassium Chloride (Klor-Con M10) 10 meq DAILY PO 06/12/17 09:00 07/12/17 08:59 06/13/17 08:48 10 MEQ Miscellaneous (Iv Fluids Completed) 1 ea PRN PRN N/A 06/11/17 19:15 06/11/18 19:14 Triamcinolone Acetonide (Nasacort Allergy 24hr) 2 sprays DAILY ANURAG 06/12/17 09:00 07/12/17 08:59 06/13/17 08:49 2 SPRAYS Lactobacillus Acidophilus (Floranex Tab) 4 tab DAILY@1500 PO 06/12/17 15:00 07/12/17 14:59 06/13/17 14:30 4 TAB Selegiline HCl (Eldepryl Cap) 5 mg BID@0900,1500 PO 06/12/17 09:00 07/12/17 08:59 06/13/17 14:30 5 MG Sodium Chloride ([place] Nasal [place]) 1 sprays PRN PRN NA 06/12/17 18:00 07/12/17 17:59 Objective Vital Signs Date Time Temp Pulse Resp B/P (MAP) Pulse Ox O2 Delivery O2 Flow Rate FiO2 06/13/17 14:31 36.6 70 18 98 Room Air 06/13/17 12:00 36.6 70 18 125/70 (88) 98 Room Air 06/13/17 12:00 Room Air 06/13/17 08:00 Room Air 06/13/17 07:20 36.8 71 18 134/77 (96) 98 Room Air 06/13/17 04:02 36.3 71 18 156/80 (105) 96 Room Air 06/13/17 04:00 Room Air 06/13/17 00:00 Room Air 06/12/17 23:51 36.8 71 18 169/86 (113) 98 Room Air 06/12/17 20:00 Room Air 06/12/17 19:42 36.9 73 20 122/70 (87) 98 Room Air 06/12/17 17:52 37.0 72 16 147/78 (101) 96 Room Air 06/12/17 16:00 Room Air 06/12/17 15:59 36.7 73 16 141/82 (101) 97 Room Air Physical Exam General Appearance: no apparent distress Respiratory/Chest: lungs clear, normal breath sounds, no respiratory distress, no accessory muscle use Cardiovascular: regular rate, rhythm, no edema, no murmur Abdomen: normal bowel sounds, non tender, soft Extremities: normal inspection, no pedal edema Neurologic/Psychiatric: no motor/sensory deficits, alert, normal mood/affect Laboratory Results Last 24 Hours Test 06/12/17 17:46 06/13/17 07:53 Bedside Glucose 105 mg/dl White Blood Count 6.62 K/uL Red Blood Count 4.57 M/uL Hemoglobin 13.7 g/dL Hematocrit 41.0 % Mean Corpuscular Volume 89.7 fL Mean Corpuscular Hemoglobin 30.0 pg Mean Corpuscular Hemoglobin Concent 33.4 g/dl Platelet Count 420 K/uL Mean Platelet Volume 8.7 fL Neutrophils (%) (Auto) 69.7 % Lymphocytes (%) (Auto) 19.3 % Monocytes (%) (Auto) 9.4 % Eosinophils (%) (Auto) 0.8 % Basophils (%) (Auto) 0.5 % Neutrophils # (Auto) 4.62 K/uL Lymphocytes # (Auto) 1.28 K/uL Monocytes # (Auto) 0.62 K/uL Eosinophils # (Auto) 0.05 K/uL Basophils # (Auto) 0.03 K/uL RDW Standard Deviation 48.4 fL RDW Coefficient of Variation 14.8 % Immature Granulocyte % (Auto) 0.3 % Immature Granulocyte # (Auto) 0.02 K/uL Sodium Level 137 mmol/L Potassium Level 3.8 mmol/L Chloride Level 104 mmol/L Carbon Dioxide Level 28 mmol/L Anion Gap 5.0 mmol/L Blood Urea Nitrogen 20 mg/dl Creatinine 0.84 mg/dl Est Creatinine Clear Calc Drug Dose 40.0 ml/min Estimated GFR () 71.9 Estimated GFR (Non- 62.1 BUN/Creatinine Ratio 23.6 Random Glucose 93 mg/dl Calcium Level 9.0 mg/dl Assessment and Plan This is a 86 year old female with PMH of Parkinson's, hx. of stable meningioma - presents with a cluster of neurology symptoms including numbness/tingling L>R , R sided weakness. Neuropathy, Questionable Slurring of Speech Hx. of Meningioma 06/13 - patient with another head CT last evening with no acute findings - plan is to d/c home today - outpatient PCP follow-up, outpatient neurology follow-up - can increase aspirin to 162mg; patient refusing Lipitor and Plavix at this time - outpatient discussion regarding Sinemet; and possible increase in Gabapentin dose - outpatient discussion regarding Nasacort vs. Flonase 06/12 - patient with known neuropathy - hx. of benign meningioma - presented with neuropathy all over, some RLE weakness, possibly slurring of speech as per records - Head CT negative - CTA head - stable meningioma, no acute issues - recommendation by neurology to start Plavix - patient refused - Patient also refusing statin therapy - agreeable to increase Aspirin to 162mg - PT/OT/speech consulted - neurology consulted as well Recent UTI - to complete Cipro course today (06/12) Parkinson - continue Sinemet, Selegiline DVT ppx - subq heparin DNR
[2017-06-13] MEDS ORDERED: ASPEC81 PO (15:03)
--- NOTE | 2017-06-13 15:08 | Discharge Instructions ---
Discharge Instructions Date of Service Jun 13, 2017. Admission Reason for Admission: Numbness Discharge Discharge Diagnosis / Problem: Neuropathy Discharge Goals Goal(s): Decrease discomfort, Improve function, Diagnostic testing, Therapeutic intervention Activity Recommendations Activity Limitations: resume your previous activity . Instructions / Follow-Up Instructions / Follow-Up Please follow-up with Dr. Hernandez on June 20 at 11:05AM * Your dose of aspirin is increased to 162mg * Please follow-up with neurology to discuss your Sinemet and Gabapentin doses * Your primary care can talk to you about your sinus issues; possibly switching Nasacort to Flonase Current Hospital Diet Patient's current hospital diet: AHA Diet (Heart Healthy) Discharge Diet Recommended Diet: AHA Diet (Heart Healthy) Pending Studies Studies pending at discharge: no Laboratory Results Hemoglobin A1c Test 06/11/17 15:40 Range/Units Estimated Average Glucose 128 mg/dl Hemoglobin A1c 6.1 H 4.5-5.6 % Lipid Panel Test 06/12/17 06:22 Range/Units Triglycerides Level 121 0-150 mg/dl Cholesterol Level 244 H 0-200 mg/dl HDL Cholesterol 73 mg/dl Cholesterol/HDL Ratio 3.3 LDL Cholesterol, Calculated 147 mg/dl Medical Emergencies . Who to Call and When: Medical Emergencies: If at any time you feel your situation is an emergency, please call 911 immediately. . Non-Emergent Contact Non-Emergency issues call your: Primary Care Provider, Neurologist . . "Provider Documentation" section prepared by Ching Roberts. .
--- NOTE | 2017-06-13 15:10 | Discharge Summary ---
Discharge Summary Date of Service Jun 13, 2017. Discharge Summary Admission Date: Jun 11, 2017 at 18:04 Discharge Date: Jun 13, 2017 Discharge Disposition: Home Principal Diagnosis: Neuropathy, Questionable Slurring of Speech Hx. of Meningioma Recent UTI - resolved Parkinson's Disease Medication Reconciliation Changed Medications: Aspirin (Aspirin EC Low Dose) 81 Mg Ectab 162 MG PO DAILY for 30 Days, #60 TABS (Changed from: 81 MG) Continued Medications: Acetaminophen (Tylenol) 500 Mg Tab 1000 MG PO Q6H PRN for Pain or Fever, TAB MAX APAP=3GM/24HRS Carbidopa/Levodopa (Sinemet 25MG/100MG) Tab 2 TABS PO TID, TAB 9AM/3PM/11PM Carbidopa/Levodopa (Sinemet 25MG/100MG) Tab 1 TAB PO QAM, TAB Cholecalciferol (D 2000) 2,000 Unit Tab 2000 UNITS PO QAM Cyanocobalamin (Vitamin B-12) 500 Mcg Tab 500 MCG PO DAILY, TAB Cyclosporine (Ophth) (Restasis) 0.05 % Emu 1 DROPS OP BID Gabapentin (Neurontin) 100 Mg Cap 100 MG PO TID, CAP TAKE 100MG THREE TIMES A DAY AT 0900,1500,2300 Magnesium (Magnesium 250 mg) 1 Tab Tab 250 MG PO BID TAKE 250MG TWICE A DAY AT 0900 AND 2300 Multiple Vitamins W/ Minerals (Airborne) 1 Tab Tab 1 TAB PO QAM Potassium Chloride (K-Tab) 8 Meq Tab 8 MEQ PO DAILY Probiotic Product (Probiotic) 1 Cap Cap 1 CAP PO QPM Saline ([place]) 0.65 % Spr 2 SPRY ANURAG TID PRN for CONGESTION, #50 ML 2 Refills Selegiline Hcl (Eldepryl) 5 Mg Cap 5 MG PO BID, CAP TAKE 5MG TWICE A DAY AT 0900 AND 1500 Sertraline (Zoloft) 25 Mg Tab 25 MG PO HS, TAB Valerian (Valeriana Officinali (Valerian Root) 450 Mg Cap 450 MG PO QPM@2300 [Arginex] () 1 TAB PO TIDM ARGINEX-BY STANDARD PROCESS Discontinued Medications: Ciprofloxacin Tab (Cipro) 250 Mg Tab 250 MG PO BID, TAB BEGIN 06/04/17 X7DAYS. END06/11/17. Admission Information HPI (per Admitting provider): 86-year-old female who presents to the ER with a chief complaint of slurred speech and numbness. Patient's daughters at the bedside who provides some history. She reports that she noted her mother's speech to be somewhat slurred last evening, however she thought that maybe the patient was just tired. Patient reports that also last night she noticed numbness over her entire body, felt like the left side was more numb than the right. She was able to go to sleep and slept well throughout the night. When she woke up this morning the numbness persisted. She reports increased difficulty with ambulating feeling like her right leg was weaker than the left. Patient does have Parkinson's, therefore symptoms are difficult to differentiate. Patient denies chest pain shortness of breath. No lightheadedness, dizziness, diaphoresis or syncopal events. She is currently being treated for urinary tract infection. Patient reports episodes of hot flashes, flushing, and chills which have been going on for the past several months. She denies abdominal pain, nausea, vomiting, and diarrhea. In the ED, head CT is negative for acute findings. Labs are unremarkable. Physical Exam (per Admitting): General Appearance: WD/WN, no apparent distress, + pertinent finding (Flat affect) Head: normocephalic, atraumatic Eyes: normal inspection, PERRL, EOMI, sclerae normal ENT: hearing grossly normal, + pertinent finding (Mucous membranes moist) Neck: supple, no JVD, trachea midline Respiratory/Chest: lungs clear, normal breath sounds, no respiratory distress Cardiovascular: regular rate, rhythm, no edema, normal peripheral pulses Abdomen/GI: normal bowel sounds, non tender, soft, no organomegaly Extremities/Musculoskelatal: normal inspection, no calf tenderness, normal capillary refill Neurologic/Psych: alert, oriented x 3, + pertinent finding (Left hand grasp slightly weaker than right, BLLE weak equally; neuro exam difficult given patient's history of Parkinson's) Skin: warm/dry, + pertinent finding (Flushing noted to the head and upper chest; chronic venous changes BLLE) Hospital Course This is a 86 year old female with PMH of Parkinson's, hx. of stable meningioma - presents with a cluster of neurology symptoms including numbness/tingling L>R , R sided weakness. Neuropathy, Questionable Slurring of Speech Hx. of Meningioma 06/13 - patient with another head CT last evening with no acute findings - plan is to d/c home today - outpatient PCP follow-up, outpatient neurology follow-up - can increase aspirin to 162mg; patient refusing Lipitor and Plavix at this time - outpatient discussion regarding Sinemet; and possible increase in Gabapentin dose - outpatient discussion regarding Nasacort vs. Flonase 06/12 - patient with known neuropathy - hx. of benign meningioma - presented with neuropathy all over, some RLE weakness, possibly slurring of speech as per records - Head CT negative - CTA head - stable meningioma, no acute issues - recommendation by neurology to start Plavix - patient refused - Patient also refusing statin therapy - agreeable to increase Aspirin to 162mg - PT/OT/speech consulted - neurology consulted as well Recent UTI - to complete Cipro course today (06/12) Parkinson - continue Sinemet, Selegiline DVT ppx - subq heparin DNR Total time spent on discharge = 25 minutes This includes examination of the patient, discharge planning, medication reconciliation, and communication with other providers. Discharge Instructions Please follow-up with Dr. Hernandez on June 20 at 11:05AM * Your dose of aspirin is increased to 162mg * Please follow-up with neurology to discuss your Sinemet and Gabapentin doses * Your primary care can talk to you about your sinus issues; possibly switching Nasacort to Flonase
== END 2017-06-13 16:10 | disposition home or self-care (01) ==
LOC: C.EDB 15:10 → C.MED 18:04 → EDBEDREQ 18:13 → ENRESERV 18:44
PROVIDERS: ADMIT Family Medicine; ATTEND Family Medicine
DX: G62.9 Polyneuropathy, unspecified (principal); R20.0 Anesthesia of skin; R47.9 Unspecified speech disturbances; G20 Parkinson's disease; K21.9 Gastro-esophageal reflux disease without esophagitis; E78.5 Hyperlipidemia, unspecified; Z66 Do not resuscitate; Z87.891 Personal history of nicotine dependence; Z86.011 Personal history of benign neoplasm of the brain; Z87.440 Personal history of urinary (tract) infections; Z96.659 Presence of unspecified artificial knee joint; Z79.82 Long term (current) use of aspirin; Z88.5 Allergy status to narcotic agent; Z82.49 Family history of ischemic heart disease and other diseases of the circulatory system; Z83.6 Family history of other diseases of the respiratory system

== ENCOUNTER 2017-06-22 11:29 | Emergency (ER) | payer MEDICARE ==
[~2017-06-22] VITALS: Ht 162.6 cm; Wt 57.2 kg
[~2017-06-22 11:29] MED LIST changes: +ARGINEX PO; -CARB25TA12 PO; -CHOL1TAB76 PO; +CYAN500T PO; -FURO-85 PO; -GABA100C13 PO; -MAGN250T3 PO; -MISCCAP80 PO; -POTA-232 PO; -SALI0.657 NAE; -SALI1SPR3 NAE; -SELE5CAP2 PO; -SERT25TA PO; -VALE450C4 PO
[2017-06-22 11:54] VITALS: TEMP 36.5
[2017-06-22] MEDS ORDERED: [UNRECOGNIZED DRUG - CODE] PO (12:15)
[2017-06-22] MEDS ORDERED: ASPI81TA28 PO (12:15)
[2017-06-22] MEDS ORDERED: SODIUM CHLORIDE 0.9% 1000ML 1,000 ML IV SCH (12:28)
[2017-06-22 12:30] VITALS: Ht 162.6 cm; Wt 57.2 kg
--- NOTE | 2017-06-22 12:36 | EMERGENCY ROOM VISIT NOTE ---
History Report prepared by [place]: Praveen Parekh Under the Supervision of: Dr. Chuck Sher D.O. First contact with patient: 12:22 Chief Complaint: WEAKNESS Stated Complaint: NUMBESS ALL OVER Nursing Triage Summary: Pt arrives ALS for evaluation of weakness. Pt has ATC care givers; at approx 1035 this am pt has sudden onset of blank stare, drooling from both sides of mouth, and weakness to upper extremities. Pt able to stand, ambulate with person assist, feeds self. PMH: Parkinsons, TIA History of Present Illness The patient is an 86 year old female with a history of Parkinson's and a TIA who presents to the Emergency Room via ALS with complaints of persistent weakness of sudden onset starting around 2 hours ago. Per the patient's caregivers, the patient at around 1025 this morning had a sudden onset of a blank stare with drooling from both sides of her mouth, in addition to weakness to the bilateral upper extremities. Per the nursing staff, the [id number] caregivers did a stroke workup, and she missed her nose with her finger on both hands. The patient was also not holding her arms as high as she normally can. Per the caregiver, this episode occurred after eating breakfast this morning. She did not choke, and she was not coughing, but noted that she "did not feel good", and then the episode occurred. The patient was unable to talk well, and could only move her head "yes or no". Her blood pressure at that time was 135/84 , and her pulse was 62, and her oxygen saturation was 97%. Per the patient's daughter, the patient was very pale and flushed during the episode, and is currently only slightly better. Per the nursing staff, the patient is able to stand, and ambulate with person-assist. She does feed herself at baseline. Per the patient's caregiver, the patient was very restless last night and could not sleep well. She was noted to be "burning up". Per the patient's daughter, the patient has had episodes like this in the past, and was here a couple weeks ago. She had 2 CT's done, and then had an episode like this, and had a further CT which showed no changes. The patient was seen by Dr. Phipps of neurology, and he wanted to see her in the office again next month. Dr. Phipps was not sure why these episodes were happening, but the patient has an EEG scheduled for next week. The patient takes baby Aspirin daily, and had her dosage doubled recently. Source of History: patient, family, caregiver Onset: 2 hours ago Position: other (global) Symptom Intensity: could not hold arms as high as usually can Quality: other (weakness) Timing: other (persistent) Associated Symptoms: No cough Note: Associated symptoms: Drooling to both sides of mouth. Could not talk well. Pale and flushed. Review of Systems See HPI for pertinent positives & negatives. A total of 10 systems reviewed and were otherwise negative. 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), lumbar (3) Dyslipidemia (4) GERD (gastroesophageal reflux disease) (5) Parkinson's disease Surgical Problems: (1) H/O elbow surgery (2) History of cataract surgery (3) S/P hernia repair (4) S/P knee replacement (5) S/P tonsillectomy and adenoidectomy Family History FH: cancer FH: heart disease FH: hypertension FH: lung disease Social History Smoking Status: Never Smoker Alcohol Use: none Housing Status: lives with family Occupation Status: retired Current/Historical Medications Scheduled Aspirin (Aspirin EC Low Dose), 162 MG PO DAILY Aspirin (Aspirin Ec), 162 MG PO DAILY Carbidopa/Levodopa (Sinemet 25MG/100MG), 2 TABS PO TID Carbidopa/Levodopa (Sinemet 25MG/100MG), 1 TAB PO QAM Cholecalciferol (D 2000), 2,000 UNITS PO QAM Cyanocobalamin (Ra Vitamin B-12), 0.5 ML PO DAILY Cyclosporine (Ophth) (Restasis), 1 DROPS OP BID Gabapentin (Neurontin), 100 MG PO TID Magnesium (Magnesium 250 mg), 250 MG PO BID Multiple Vitamins W/ Minerals (Airborne), 1 TAB PO QAM Potassium Chloride (K-Tab), 8 MEQ PO DAILY Probiotic Product (Probiotic), 1 CAP PO QAM Selegiline Hcl (Eldepryl), 5 MG PO BID Sertraline (Zoloft), 25 MG PO HS Valerian (Valeriana Officinali (Valerian Root), 450 MG PO QPM@2300 Scheduled PRN Acetaminophen (Tylenol), 1,000 MG PO Q6H PRN for Pain or Fever Saline ([place]), 2 SPRY ANURAG TID PRN for CONGESTION Allergies Uncoded Allergies: NARCOTICS (Adverse Reaction, Unknown, DIZZY, , 06/25/15) Physical Exam Vital Signs Date Time Temp Pulse Resp B/P (MAP) Pulse Ox O2 Delivery O2 Flow Rate FiO2 06/22/17 15:30 60 183/87 97 06/22/17 14:00 68 179/88 97 06/22/17 12:31 Room Air 06/22/17 11:54 36.5 62 18 155/77 97 Room Air 06/22/17 11:37 68 Physical Exam GENERAL: Patient is awake but somewhat listless appearing. Follows commands slowly. EYES: The conjunctivae are clear. The pupils are round and reactive. EARS, NOSE, MOUTH AND THROAT: The nose is without any evidence of any deformity. Mucous membranes are moist tongue is midline NECK: The neck is nontender and supple. RESPIRATORY: Normal respiratory effort is noted there is no evidence of wheezing rhonchi or rales CARDIOVASCULAR: Regular rate and rhythm noted there no murmurs rubs or gallops normal S1 normal S2 GASTROINTESTINAL: The abdomen is soft. Bowel sounds are present in all quadrants. Abdomen is nontender MUSCULOSKELETAL/EXTREMITIES: There is no evidence of gross deformity full range of motion is noted in the hips and shoulders SKIN: There is pedal edema bilaterally. No signs of cellulitis. NEUROLOGIC: Patient does not answer verbally so unable to assess orientation at this time. Strength was diminished but symmetric in both the upper and lower extremities. Medical Decision & Procedures ER Provider Diagnostic Interpretation: Radiology results as stated below per my review and radiologist interpretation: CT OF THE HEAD WITHOUT CONTRAST CLINICAL HISTORY: Stroke. Numbness. COMPARISON STUDY: PET/CT June 12, 2017. CT DOSE: 537.48 mGy.cm TECHNIQUE: Helical axial images of the head were obtained without IV contrast. Automated exposure control was utilized for the study. A dose lowering technique was utilized adhering to the principles of ALARA. FINDINGS: No acute intracranial hemorrhage, midline shift or mass effect is present. Ventricular system is stable. Basilar cisterns are patent. No extra-axial collections are present. A hyperdense partially calcified 2 cm extra-axial lesion overlying the lateral aspect of the left cerebellar hemisphere is unchanged. White matter hypodensity suggests small vessel disease. There are no findings to suggest acute dural sinus thrombosis or acute territorial infarct. There are no significant calvarial abnormalities. Visualized portions of the sinuses and mastoid air cells are clear. IMPRESSION: 1. No acute intracranial findings. 2. No change in a 2 cm extra-axial lesion overlying the left cerebellar hemisphere which suggests a meningioma. Electronically signed by: Geovany Kuhn M.D. 06/22/2017 1:43 PM Dictated Date/Time: 06/22/2017 1:40 PM CHEST ONE VIEW PORTABLE CLINICAL HISTORY: 86 years-old Female presenting with Stroke. TECHNIQUE: Portable upright AP view of the chest was obtained. COMPARISON: 06/11/2017. FINDINGS: Atherosclerosis of aortic arch. Cardiac silhouette mildly enlarged. No focal opacity. No large effusion or pneumothorax. Degenerative changes of the thoracic spine. Upper abdomen normal. IMPRESSION: 1. No acute cardiopulmonary disease. Electronically signed by: Christopher Garcia M.D. 06/22/2017 1:12 PM Dictated Date/Time: 06/22/2017 1:12 PM Laboratory Results 06/22/17 13:00 Red Blood Count 4.78, Mean Corpuscular Volume 90.8, Mean Corpuscular Hemoglobin 30.1, Mean Corpuscular Hemoglobin Concent 33.2, Mean Platelet Volume 9.3, Neutrophils (%) (Auto) 58.9, Lymphocytes (%) (Auto) 26.4, Monocytes (%) (Auto) 12.4, Eosinophils (%) (Auto) 1.6, Basophils (%) (Auto) 0.5, Neutrophils # (Auto ) 2.62, Lymphocytes # (Auto) 1.17, Monocytes # (Auto) 0.55, Eosinophils # (Auto ) 0.07, Basophils # (Auto) 0.02 06/22/17 13:00 Test 06/22/17 13:00 White Blood Count 4.44 K/uL (4.8-10.8) Red Blood Count 4.78 M/uL (4.2-5.4) Hemoglobin 14.4 g/dL (12.0-16.0) Hematocrit 43.4 % (37-47) Mean Corpuscular Volume 90.8 fL (80-100) Mean Corpuscular Hemoglobin 30.1 pg (25-34) Mean Corpuscular Hemoglobin Concent 33.2 g/dl (32-36) Platelet Count 373 K/uL (130-400) Mean Platelet Volume 9.3 fL (7.4-10.4) Neutrophils (%) (Auto) 58.9 % Lymphocytes (%) (Auto) 26.4 % Monocytes (%) (Auto) 12.4 % Eosinophils (%) (Auto) 1.6 % Basophils (%) (Auto) 0.5 % Neutrophils # (Auto) 2.62 K/uL (1.4-6.5) Lymphocytes # (Auto) 1.17 K/uL (1.2-3.4) Monocytes # (Auto) 0.55 K/uL (0.11-0.59) Eosinophils # (Auto) 0.07 K/uL (0-0.5) Basophils # (Auto) 0.02 K/uL (0-0.2) RDW Standard Deviation 50.0 fL (36.4-46.3) RDW Coefficient of Variation 15.0 % (11.5-14.5) Immature Granulocyte % (Auto) 0.2 % Immature Granulocyte # (Auto) 0.01 K/uL (0.00-0.02) Prothrombin Time 9.5 SECONDS (9.0-12.0) Prothromb Time International Ratio 0.9 (0.9-1.1) Activated Partial Thromboplast Time 28.8 SECONDS (21.0-31.0) Partial Thromboplastin Ratio 1.1 Anion Gap 6.0 mmol/L (3-11) Est Creatinine Clear Calc Drug Dose 38.2 ml/min Estimated GFR () 68.0 Estimated GFR (Non- 58.7 BUN/Creatinine Ratio 15.7 (10-20) Calcium Level 9.3 mg/dl (8.5-10.1) Magnesium Level 2.5 mg/dl (1.8-2.4) Total Creatine Kinase 102 U/L (26-192) Creatine Kinase MB 2.8 ng/ml (0.5-3.6) Creatine Kinase MB Ratio 2.7 (0-3.0) Troponin I < 0.015 ng/ml (0-0.045) Prolactin 10.70 ng/mL Laboratory results per my review. Medications Administered Medications (Trade) Dose Ordered Sig/[place] Route Start Time Stop Time Status Last Admin Dose Admin Sodium Chloride 1,000 ml @ 50 mls/hr Q20H IV 06/22/17 12:28 06/22/17 16:29 DC 06/22/17 13:00 50 MLS/HR ECG Per My Interpretation Indication: weakness Rate (beats per minute): 62 Rhythm: normal sinus Findings: no ectopy, other (anterior T-wave abnormalities noted, no acute ST segment abnormalities) ED Course 1225: The patient was evaluated in room B4A. A complete history and physical examination were performed. 1435: I reevaluated the patient and talked to her and her family. I paged Dr. Phipps. 1442: I discussed the patient with Dr. Phipps - [facility] - he recommends outpatient follow-up for EEG. 1448: Upon reevaluation, the patient is resting. I discussed the results and treatment plan with the patient and her family. The family verbalized agreement of the treatment plan. The patient was discharged home. Medical Decision Differential diagnosis: Etiologies such as metabolic, infection, hypo/hyperglycemia, electrolyte abnormalities, cardiac sources, intracerebral event, toxicologic, neurologic, as well as others were entertained. Nursing notes reviewed. Additional history is obtained from the patient's family members. The patient is an 86-year-old female who presented to the emergency department for an episode that the family have a very difficult time quantifying. They describe an episode of staring and the patient begins to drool. She becomes unresponsive. There is no definite seizure activity. The patient was seen in our facility recently for similar episode and was admitted to the hospital at that time. The patient had a spot EEG at that time which was negative. This was not felt to be a definite seizure but the patient was set up with a follow- up appointment with neurology for formal EEG monitoring. I discussed the patient's laboratory and radiographic studies with the family members. I also discussed her case with her primary neurology group. At this time she does not appear to have any criteria for readmission given the same symptoms. She is already scheduled for a follow-up appointment for an EEG. She was encouraged to keep his appointment and continue all medications as prescribed. Otherwise they were encouraged to return to the emergency department immediately if symptoms change worsen or the need arises. Medication Reconcilliation Current Medication List: was personally reviewed by me Blood Pressure Screening Patient's blood pressure: Elevated blood pressure Blood pressure disposition: Elevated BP felt to be situational Consults Time Called: 1432 Consulting Physician: Dr. Desire Bella neurology Returned Call: 1445 I discussed the patient with Dr. Desire Bella neurology - he recommends outpatient follow-up for EEG. Impression Primary Impression: Altered mental status Additional Impression: Weakness Scribe Attestation The scribe's documentation has been prepared under my direction and personally reviewed by me in its entirety. I confirm that the note above accurately reflects all work, treatment, procedures, and medical decision making performed by me. Departure Information Dispostion Home / Self-Care Referrals Paulo Hernandez D.O. (PCP) Philippe Phipps M.D. (MEDICINE) Patient Instructions [facility] Additional Instructions Continue all medications as prescribed. Follow-up with neurology for further testing as scheduled. Return to the emergency department if symptoms change worsen or the need arises. Problem Qualifiers Primary Impression: Altered mental status Altered mental status type: unspecified Qualified Codes: R41.82 - Altered mental status, unspecified
[2017-06-22] MEDS ORDERED: POTA-232 PO (13:07)
--- NOTE | 2017-06-22 13:14 | DIAGNOSTIC IMAGING REPORT ---
CHEST ONE VIEW PORTABLE CLINICAL HISTORY: 86 years-old Female presenting with Stroke. TECHNIQUE: Portable upright AP view of the chest was obtained. COMPARISON: 06/11/2017. FINDINGS: Atherosclerosis of aortic arch. Cardiac silhouette mildly enlarged. No focal opacity. No large effusion or pneumothorax. Degenerative changes of the thoracic spine. Upper abdomen normal. IMPRESSION: 1. No acute cardiopulmonary disease. Electronically signed by: Christopher Garcia M.D. 06/22/2017 1:12 PM Dictated Date/Time: 06/22/2017 1:12 PM
[2017-06-22 13:21] LABS: BASO % 0.5 %; BASO ABS # 0.02 K/uL (0-0.2); EOS % 1.6 %; EOS ABS # 0.07 K/uL (0-0.5); HEMATOCRIT 43.4 % (37-47); HEMOGLOBIN 14.4 g/dL (12.0-16.0); IG# 0.01 K/uL (0.00-0.02); LYMPH % 26.4 %; LYMPH ABS # 1.17 K/uL (1.2-3.4); MEAN CELL VOLUME 90.8 fL (80-100); MEAN CORPUSCULAR HEMOGLOBIN 30.1 pg (25-34); MEAN CORPUSCULAR HGB CONC 33.2 g/dl (32-36); MEAN PLATELET VOLUME 9.3 fL (7.4-10.4); MONO % 12.4 %; MONO ABS # 0.55 K/uL (0.11-0.59); NEUT % 58.9 %; NEUT ABS # 2.62 K/uL (1.4-6.5); PLATELET COUNT 373 K/uL (130-400); WHITE BLOOD COUNT 4.44 K/uL (4.8-10.8)
[2017-06-22] MEDS ORDERED: SELE5CAP2 PO (13:33)
[2017-06-22] MEDS ORDERED: CARB25TA12 PO ×2 (13:33→20:44)
[2017-06-22 13:38] LABS: INR 0.9 (0.9-1.1); PTT PATIENT 28.8 SECONDS (21.0-31.0)
[2017-06-22 13:42] LABS: BLOOD UREA NITROGEN 14 mg/dl (7-18); CALCIUM 9.3 mg/dl (8.5-10.1); CARBON DIOXIDE 28 mmol/L (21-32); CREATININE 0.88 mg/dl (0.60-1.20); GLUCOSE 87 mg/dl (70-99); POTASSIUM 3.9 mmol/L (3.5-5.1); SODIUM 136 mmol/L (136-145)
--- NOTE | 2017-06-22 13:44 | DIAGNOSTIC IMAGING REPORT ---
CT OF THE HEAD WITHOUT CONTRAST CLINICAL HISTORY: Stroke. Numbness. COMPARISON STUDY: PET/CT June 12, 2017. CT DOSE: 537.48 mGy.cm TECHNIQUE: Helical axial images of the head were obtained without IV contrast. Automated exposure control was utilized for the study. A dose lowering technique was utilized adhering to the principles of ALARA. FINDINGS: No acute intracranial hemorrhage, midline shift or mass effect is present. Ventricular system is stable. Basilar cisterns are patent. No extra-axial collections are present. A hyperdense partially calcified 2 cm extra-axial lesion overlying the lateral aspect of the left cerebellar hemisphere is unchanged. White matter hypodensity suggests small vessel disease. There are no findings to suggest acute dural sinus thrombosis or acute territorial infarct. There are no significant calvarial abnormalities. Visualized portions of the sinuses and mastoid air cells are clear. IMPRESSION: 1. No acute intracranial findings. 2. No change in a 2 cm extra-axial lesion overlying the left cerebellar hemisphere which suggests a meningioma. Electronically signed by: Geovany Kuhn M.D. 06/22/2017 1:43 PM Dictated Date/Time: 06/22/2017 1:40 PM
[2017-06-22 13:47] LABS: CKMB 2.8 ng/ml (0.5-3.6)
[2017-06-22] MEDS ORDERED: GABA100C13 PO (14:34)
[2017-06-22 15:30] VITALS: BP 183/87; PULSE 60; O2SAT 97
[2017-06-22] MEDS ORDERED: MULT-920 PO (16:59)
[2017-06-22] MEDS ORDERED: ACET-1256 PO (17:08)
[2017-06-22] MEDS ORDERED: CYCL0.052 OP (17:19)
[2017-06-22] MEDS ORDERED: SALI0.657 NAE (20:49)
[2017-06-22] MEDS ORDERED: SERT25TA PO (20:51)
[2017-06-22] MEDS ORDERED: CHOL1TAB76 PO (20:55)
[2017-06-22] MEDS ORDERED: MAGN250T3 PO (20:58)
[2017-06-22] MEDS ORDERED: VALE450C4 PO (21:00)
[2017-06-22] MEDS ORDERED: MISCCAP80 PO (21:01)
== END 2017-06-22 15:30 | disposition home or self-care (01) ==
LOC: EDBD 11:29 → C.EDB 11:31
DX: R41.82 Altered mental status, unspecified (principal); R53.1 Weakness; R03.0 Elevated blood-pressure reading, without diagnosis of hypertension; G20 Parkinson's disease; K21.9 Gastro-esophageal reflux disease without esophagitis; Z86.73 Personal history of transient ischemic attack (TIA), and cerebral infarction without residual deficits; Z88.5 Allergy status to narcotic agent; Z79.82 Long term (current) use of aspirin; Z82.49 Family history of ischemic heart disease and other diseases of the circulatory system; Z83.6 Family history of other diseases of the respiratory system

== ENCOUNTER 2017-10-13 11:31 | Emergency (ER) | payer MEDICARE ==
[~2017-10-13] VITALS: Ht 162.6 cm; Wt 62.0 kg
[~2017-10-13 11:31] MED LIST changes: -ARGINEX PO; -ASPEC81 PO; +ASPI81TA28 PO; +CARB25TA12 PO; +CHOL1TAB76 PO; -CYAN500T PO; +CYCL0.052 OPB; +MAGN1TAB19 PO; +MISCCAP80 PO; +MULT-920 PO; +NRN100 PO; +OMEG100046 PO; +POLYSOL OPB; +POTA8TAB15 PO; +SALI0.657 NAE; +SELE5CAP2 PO; +SERT1TAB88 PO; +VALE450C4 PO; +[UNRECOGNIZED DRUG - CODE] PO; +[UNRECOGNIZED DRUG - OTHER] PO
[2017-10-13 11:33] VITALS: TEMP 36.7; Ht 162.6 cm; Wt 62.0 kg
--- NOTE | 2017-10-13 12:19 | DIAGNOSTIC IMAGING REPORT ---
L ANKLE MIN 3 VIEWS ROUTINE CLINICAL HISTORY: Left ankle pain COMPARISON: 5 05/17/2017 DISCUSSION: The bones are osteopenic. No fractures or dislocations are visualized. There is Achilles insertional spurring. Achilles tendon calcifications are also evident. IMPRESSION: 1. Osteopenia 2. No acute fractures 3. Achilles insertional spurring and probable Achilles tendon calcification Electronically signed by: Calvin Osorio M.D. 10/13/2017 12:18 PM Dictated Date/Time: 10/13/2017 12:17 PM
--- NOTE | 2017-10-13 12:21 | DIAGNOSTIC IMAGING REPORT ---
L FOOT MIN 3 VIEWS ROUTINE CLINICAL HISTORY: Left foot pain COMPARISON: 08/16/2017 DISCUSSION: The bones are osteopenic. There are no acute fractures. There is Achilles insertional spurring. There is midfoot degenerative change. There is an old fracture the fifth metatarsal. IMPRESSION: 1. Osteopenia 2. No acute fractures Electronically signed by: Calvin Osorio M.D. 10/13/2017 12:19 PM Dictated Date/Time: 10/13/2017 12:18 PM
[2017-10-13] MEDS ORDERED: MAGN500T4 PO (12:48)
[2017-10-13] MEDS ORDERED: TRAM-10 PO (13:03)
[2017-10-13] MEDS ORDERED: TRAMADOL HCL 50 MG TAB PO STA (13:04)
--- NOTE | 2017-10-13 13:55 | EMERGENCY ROOM VISIT NOTE ---
History Report prepared by Brook: Maryana Erazo Under the Supervision of: Dr. Gregoria Alberts M.D. First contact with patient: 11:47 Chief Complaint: FOOT PAIN Stated Complaint: L FOOT HURTS History of Present Illness The patient is an 87 year old female who presents to the Emergency Room with complaints of worsening left foot pain starting this morning. Per family, the patient tore a nerve in her foot a few years ago, her arch has been collapsing over the past few years, and had a hematoma in her left leg a few months ago. The patient states her foot is now numb and painful, particularly on the top. She describes the pain as a cramping. She notes she had excruciating pain last night and felt like she could not stand this morning. She notes that bearing weight makes it worse. She claims she did not do anything out of the ordinary yesterday. The patient states she takes Tylenol for her pain. The patient denies a fever. Per family, the patient often has pain in the middle of the night, which they say might be restless leg syndrome. The family states the patient has not been sleeping well for the past 3-4 weeks. Per family, the patient has 24 hour care. Source of History: patient Onset: this morning Position: foot (left) Quality: cramping, numbness Timing: worsening Modifying Factors (Worsening): other (weight bearing) Modifying Factors (Relieving): tylenol Associated Symptoms: No fevers Note: The patient's family complains that the patient is not sleeping well. Review of Systems See HPI for pertinent positives & negatives. A total of 6 systems reviewed and were otherwise negative. 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), lumbar (3) Dyslipidemia (4) GERD (gastroesophageal reflux disease) (5) Parkinson's disease Surgical Problems: (1) H/O elbow surgery (2) History of cataract surgery (3) S/P hernia repair (4) S/P knee replacement (5) S/P tonsillectomy and adenoidectomy Family History FH: cancer FH: heart disease FH: hypertension FH: lung disease Social History Smoking Status: Former Smoker Alcohol Use: none Marital Status: Housing Status: lives with family Occupation Status: retired Current/Historical Medications Scheduled Carbidopa/Levodopa (Sinemet 25MG/100MG), 1 TAB PO 6XDAILY Cholecalciferol (D 2000), 2,000 INTER.UNIT PO QAM Cyanocobalamin (Ra Vitamin B-12), 0.5 ML PO DAILY Cyclosporine (Ophth) (Restasis), 1 DROP OPB BID Gabapentin (Gabapentin), 100 MG PO TID Magnesium Oxide (Mg Supplement (Magnesium), 500 MG PO HS Multiple Vitamins W/ Minerals (Airborne), 1 TAB PO QAM Polyvinyl Alcohol-Povidone (Op (Refresh), 1 DROP OPB QID Potassium Chloride (Potassium Chloride Sr), 8 MEQ PO QAM Probiotic Product (Probiotic), 1 CAP PO QAM Selegiline Hcl (Eldepryl), 5 MG PO BID Sertraline HCl (Sertraline HCl), 25 MG PO HS Valerian (Valeriana Officinali (Valerian Root), 450 MG PO QD@2300 [Mustard], 2 TBS PO BID Scheduled PRN Saline (Lincoln), 2 SPRY ANURAG TID PRN for Nasal Congestion Tramadol (Ultram), 1 TABS PO Q6H PRN for Pain Allergies Uncoded Allergies: NARCOTICS (Adverse Reaction, Intermediate, DIZZINESS, 08/18/17) Physical Exam Vital Signs Date Time Temp Pulse Resp B/P (MAP) Pulse Ox O2 Delivery O2 Flow Rate FiO2 10/13/17 14:03 65 20 183/94 94 Room Air 10/13/17 11:33 36.7 65 17 136/80 97 Room Air Physical Exam Vital signs reviewed. General: Well-appearing, in no significant distress. Musculoskeletal: Atraumatic, no peripheral edema. Minimal tenderness to palpation over the medial aspect of the left foot and dorsum of foot. There is a bony deformity that appears to be chronic of the tarsal/metatarsal joint. No swelling and erythema. Neurologic: Patient awake alert and oriented x 3 Skin: Warm, dry, no rash Medical Decision & Procedures ER Provider Diagnostic Interpretation: Radiology results as stated below per my review and radiologist interpretation: L FOOT MIN 3 VIEWS ROUTINE CLINICAL HISTORY: Left foot pain COMPARISON: 08/16/2017 DISCUSSION: The bones are osteopenic. There are no acute fractures. There is Achilles insertional spurring. There is midfoot degenerative change. There is an old fracture the fifth metatarsal. IMPRESSION: 1. Osteopenia 2. No acute fractures Electronically signed by: Calvin Osorio M.D. 10/13/2017 12:19 PM Dictated Date/Time: 10/13/2017 12:18 PM L ANKLE MIN 3 VIEWS ROUTINE CLINICAL HISTORY: Left ankle pain COMPARISON: 5 05/17/2017 DISCUSSION: The bones are osteopenic. No fractures or dislocations are visualized. There is Achilles insertional spurring. Achilles tendon calcifications are also evident. IMPRESSION: 1. Osteopenia 2. No acute fractures 3. Achilles insertional spurring and probable Achilles tendon calcification Electronically signed by: Calvin Osorio M.D. 10/13/2017 12:18 PM Dictated Date/Time: 10/13/2017 12:17 PM Medications Administered Medications (Trade) Dose Ordered Sig/Payton Route Start Time Stop Time Status Last Admin Dose Admin Tramadol HCl (Ultram Tab) 50 mg NOW STAT PO 10/13/17 13:04 10/13/17 13:05 DC 10/13/17 14:03 50 MG ED Course 1200: Past medical records reviewed. The patient was evaluated in room C2B. A complete history and physical examination was performed. 1304: Ordered Ultram Tab 50 mg PO. 1319: Patient refused the boot. The patient will go on an Jan wrap and will follow up with orthopedics. 1331: Upon reevaluation, the patient appeared to have improvement of her symptoms. I discussed findings with her. She verbalized agreement of the treatment plan. The patient was discharged home. Medical Decision Differential diagnosis: Etiologies such as fracture, dislocation, neurovascular compromise, compartment syndrome, soft tissue injury, as well as others were entertained. This patient was evaluated and appeared to be in no significant distress. Physical examination reveals chronic degenerative changes of the foot without specific point tenderness. X-rays were obtained which confirm the clinical findings. There is no evidence of acute fracture or dislocation. A walking boot was ordered as the patient has 24-hour assistance in the home. She was not able to tolerate the splint. Apparently, after much discussion, the patient has had a custom splint made for the foot but was also unable to tolerate this. Nonetheless the patient was given an Ultram tablet and the foot was wrapped in an Jan wrap for support. She was advised to follow-up with her orthopedic surgeon for further management. Patient will return to the emergency department for worsening of symptoms or any medical concerns. 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 I confirm that the note above accurately reflects all work, treatment, procedures, and medical decision making performed by me. Departure Information Dispostion Home / Self-Care Prescriptions Tramadol (Ultram) 50 Mg Tab 1 TABS PO Q6H Y for Pain, #14 TAB Prov: Gregoria Alberts M.D. 10/13/17 Referrals Paulo Hernandez D.O. (PCP) Forms HOME CARE DOCUMENTATION FORM, IMPORTANT VISIT INFORMATION Patient Instructions [facility] Additional Instructions Diagnosis: Left foot pain, degenerative joint disease Please follow-up with your primary care physician in the next 1-2 weeks for reevaluation. Wrap the foot with an Jan wrap and be sure to apply a grippy sock or slipper/ shoe. Tylenol 650 mg every 6 hours as needed for pain. Ultram 50 mg every 6 hours as needed for more severe pain. Warm compresses and gentle stretching/physical therapy as needed to improve symptoms. Return to the ED for worsening of symptoms or any medical concerns. Problem Qualifiers
[2017-10-13 14:03] VITALS: BP 183/94; PULSE 65; O2SAT 94
== END 2017-10-13 14:05 | disposition home or self-care (01) ==
LOC: C.EDB 11:32 → C.EDC 14:05
DX: M19.072 Primary osteoarthritis, left ankle and foot (principal); M51.36 Other intervertebral disc degeneration, lumbar region; E78.5 Hyperlipidemia, unspecified; K21.9 Gastro-esophageal reflux disease without esophagitis; G20 Parkinson's disease; Z98.49 Cataract extraction status, unspecified eye; Z96.659 Presence of unspecified artificial knee joint; Z80.9 Family history of malignant neoplasm, unspecified; Z82.49 Family history of ischemic heart disease and other diseases of the circulatory system; Z87.891 Personal history of nicotine dependence; Z79.899 Other long term (current) drug therapy; Z88.5 Allergy status to narcotic agent

== ENCOUNTER → 2017-10-24 | Outpatient (CLI) | payer MEDICARE ==
[~2017-10-24] MED LIST changes: -ASPI81TA28 PO; -MAGN1TAB19 PO; +MAGN500T4 PO; -OMEG100046 PO; +TRAM-10 PO
--- NOTE | 2017-10-24 08:59 | DIAGNOSTIC IMAGING REPORT ---
L LOWER EXT NONJOINT WITHOUT CLINICAL HISTORY: 87 years-old Female presenting with WORSENING LEFT ANKLE AND FOOT PAIN. TECHNIQUE: Multisequence, multiplanar MR imaging of the left foot was performed without the use of intravenous contrast. IV contrast: None. COMPARISON: 10/13/2017. FINDINGS: Localizer images: Unremarkable. Motion artifact degrades image quality of multiple sequences limiting diagnostic sensitivity the exam. Mild subchondral edema and cystic change evident at the medial cuneiform-first metatarsal articulation. The insertion of the tibialis anterior at the dorsum of the medial cuneiform-first metatarsal articulation is now apparent. Retracted tendon fibers and associated abnormal fluid noted along the dorsum of the hindfoot-midfoot consistent with complete tear of the tibialis anterior. No other sites of bony edema. No abnormal joint fluid. Extensive superficial subcutaneous edema noted along the dorsum of the foot most pronounced medially. IMPRESSION: 1. Rupture of the tibialis anterior with retraction of tendon fibers. Please see separately dictated MR of the ankle. 2. Nonspecific subcutaneous edema along the dorsum of the foot. 3. Reactive or degenerative changes at the first tarsometatarsal articulation. Electronically signed by: Christopher Garcia M.D. 10/24/2017 8:58 AM Dictated Date/Time: 10/24/2017 8:39 AM
--- NOTE | 2017-10-24 09:32 | DIAGNOSTIC IMAGING REPORT ---
MRI OF THE LEFT ANKLE WITHOUT IV CONTRAST CLINICAL HISTORY: Left ankle pain. COMPARISON STUDY: Radiographs of the left ankle dated 10/13/2017. TECHNIQUE: MRI of the left ankle is performed utilizing various T1 and T2-weighted sequences in the axial, sagittal, and coronal planes. IV contrast was not administered for this examination. The examination is degraded by motion artifact. FINDINGS: No acute osseous abnormality is identified at the ankle joint. There is no MRI evidence of fracture. No osteochondral defect is seen in the talar dome. Osteoarthritic change is identified in the midfoot involving the intertarsal and tarsometatarsal joints. Subcutaneous soft tissue edema is present in the visualized foot and ankle. The Achilles tendon is thickened and demonstrates abnormal signal indicating tendinopathy and partial-thickness tearing. There is no ankle joint effusion. There is marked thickening and abnormal signal identified within the tibialis anterior tendon. There is full-thickness rupture of the tibialis anterior tendon seen on axial image #24, and the tendon is retracted. The extensor digitorum longus and extensor hallucis longus tendons are intact. There is tendinopathy with high-grade partial-thickness tearing of the tibialis posterior tendon. At least some fibers likely remain intact. The flexor hallucis longus and flexor digitorum longus tendons appear intact. There is fluid identified around the flexor digitorum longus tendon suggesting tenosynovitis. The peroneal tendons are intact. Fluid around the peroneal tendons also indicates tenosynovitis. There is age-indeterminant and likely chronic tearing of the anterior talofibular and anterior tibiofibular ligaments. A dorsal calcaneal enthesophyte is observed. The visualized plantar fascia is normal in appearance. Normal fat is maintained within the sinus Tarsi. The deltoid and spring ligaments are intact as imaged. There is age-indeterminant tearing of the calcaneofibular ligament. IMPRESSION: 1. There is tendinopathy with full-thickness rupture and retraction of the tibialis anterior tendon. 2. There is tendinopathy with high-grade partial-thickness tearing of the Achilles tendon. 3. There is tendinopathy with high-grade partial thickness tearing of the tibialis posterior tendon. 4. There is tenosynovitis involving the flexor digitorum longus tendon as well as the peroneal tendons. 5. There is likely chronic tearing of the anterior tibiofibular, anterior talofibular, and calcaneofibular ligaments. 6. Soft tissue edema with no acute osseous abnormality identified. 7. Arthritic change is partially imaged in the midfoot. 8. Additional findings as above. Dictated: 10/24/2017 8:45 AM Transcribed: 10/24/2017 9:33 AM [email or web address] Electronically signed by: Jamar Sue M.D. 10/24/2017 9:36 AM Dictated Date/Time: 10/24/2017 8:45 AM
== END | disposition home or self-care (01) ==
LOC: C.MRIBC 07:17
PROVIDERS: ATTEND Internal Medicine
DX: M79.672 Pain in left foot (principal); S93.402D Sprain of unspecified ligament of left ankle, subsequent encounter; X58.XXXD Exposure to other specified factors, subsequent encounter